=== PATIENT | male | born 1950 | race Caucasian/White ===

== ENCOUNTER 2020-10-22 09:50 | Outpatient (CLI) | payer MEDICARE, OTHER, SELFPAY ==
[2020-10-22 11:30] VITALS: PULSE 90; O2SAT 95
[2020-10-22 11:35] VITALS: PULSE 115; O2SAT 87
[2020-10-22 11:36] VITALS: PULSE 95; O2SAT 92
[2020-10-22 11:45] VITALS: PULSE 90; O2SAT 96
--- NOTE | 2020-10-22 13:36 | HOMEO2EVAL ---
Evaluation was performed at [facility] Home Oxygen Evaluation RC: Home Oxygen (O2) Evaluation Start: 10/22/20 13:32 Freq: Status: Active Protocol: RPE Activity Type Activity Date Activity User E-Sign Co-Sign Detail Recorded Client Recorded Date Recorded By Document 10/22/20 11:30 EUGENIO [email or web address] 10/22/20 13:35 EUGENIO Document 10/22/20 11:35 EUGENIO [email or web address] 10/22/20 13:35 EUGENIO Document 10/22/20 11:35 EUGENIO [email or web address] 10/22/20 13:35 EUGENIO Document 10/22/20 11:36 EUGENIO [email or web address] 10/22/20 13:35 EUGENIO Document 10/22/20 11:45 EUGENIO [email or web address] 10/22/20 13:35 EUGENIO 10/22/20 10/22/20 10/22/20 11:30 11:35 11:35 Home O2 Evaluation Test Phase Resting Exercise Exercise Oxygen Delivery Room Air Room Air Nasal Cannula Oxygen Flow Rate (L/min) 1 Pulse Oximetry (90-100 %) 95 87 L 87 L Pulse Rate (60-100 beats/min) 90 115 H Ambulation Distance (feet) Home Oxygen Evaluation Comments Treatment Charges O2 Evaluation - Outpatient 10/22/20 10/22/20 11:36 11:45 Home O2 Evaluation Test Phase Exercise Resting Oxygen Delivery Nasal Cannula Room Air Oxygen Flow Rate (L/min) 2 Pulse Oximetry (90-100 %) 92 96 Pulse Rate (60-100 beats/min) 95 90 Ambulation Distance (feet) 800 Home Oxygen Evaluation Comments Pt requires 2 liters O2 with exertion/ activity Treatment Charges
--- NOTE | 2020-10-22 13:36 | PCRCNOTE ---
Home O2 eval faxed to [facility] office staff for new set up
--- NOTE | 2020-10-22 17:14 | WPDPFTINT ---
PFT Procedure Performed PFT Procedure Performed Spirometry with Pre/Post Bronchodilator Plethysmography (Lung Vol) Diffusing Cap (DLCO) Flow Vol Loop PFT Interpretation This is a pulmonary function test with pre and post-bronchodilator spirometry, plethysmography and diffusing capacity. The test was performed and results interpreted in accordance with the 2019 and 2005 ATS/ERS Task Force guidelines respectively using the Global Lung Function Initiative-2012 reference equations. Patient demonstrated good effort and cooperation. Reproducibility criteria were met. The quality of the pre bronchodilator spirometry maneuver was Grade A and post bronchodilator spirometry maneuver was Grade A. Findings: Spirometry: There is decreased maximal expiratory airflow at all lung volumes with a concave expiratory flow tracing. The contour the inspiratory flow tracing is normal. The pre bronchodilator FVC is 4.00 L, 142% predicted. The pre bronchodilator FEV1 is 1.68 L, 76% predicted. The FEV1: FVC ratio is 42%. The post bronchodilator FVC is 3.94 L, representing 1% decrease. The post bronchodilator FEV1 is 1.72 L, representing a 2% increase. Plethysmography: The total lung capacity is 5.80 L, 120% predicted. The functional residual capacity is 2.78 L, 115% predicted. The residual volume is 1.80 L, 97% predicted. Diffusion capacity: The absolute diffusion capacity is 10.5, 49% predicted. Diffusing capacity corrected for alveolar volume is 2.28, 50% predicted. Impression: There is a mild obstructive abnormality without significant improvement after inhaling a single dose of albuterol. The lung volumes are normal. The absolute diffusing capacity is moderately decreased and remains moderately decreased when corrected for alveolar volume. There are no prior studies for comparison
--- NOTE | 2020-10-23 09:24 | HOMEO2EVAL ---
Evaluation was performed at [facility]
== END 2020-10-22 09:51 | disposition home or self-care (01) ==
PROVIDERS: PCP Physician Assistant; Visit Provider Nurse Practitioner
DX: J44.9 Chronic obstructive pulmonary disease, unspecified (principal)
CPT/HCPCS: 94060; 94618; 94726; 94729

== ENCOUNTER 2025-03-27 01:45 | Day surgery (SDC) | payer MEDICARE, SELFPAY ==
--- OUTSIDE RECORDS SUMMARY | 2007-10-31 11:19 | XMS_ITS | Continuity of Care Document ---
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 Name Role Phone Ankush Canales Unavailable Unavailable Procedures Procedure Date Post-op Follow-up Visit Refraction Post-op Follow-up Visit Remove Cataract, Insert Lens Eye Exam & Treatment Echo Exam Of Eye Eye Exam Established Pt Advance Directives Directive Yes / No Effective Date File Name No Information Encounters Encounter Description Practice Location Reason(s) For Visit Diagnoses Date Provider Providers Copied on Encounter [facility], [address] [place] [address] [address], [place], [place], [id number], tel:[phone] [facility] No Information [address] , [address], [place], [place], [facility], . tel:[phone] [facility], [address] [place] [address] [address], [place], [place], [id number], tel:[phone] [facility] No Information [address], [place], [place], [facility], . tel:[phone] [facility], [address] [place] [address] [address], [place], [place], [id number], tel:[phone] [facility] No Information [address] , [address], [place], [address], [place]. tel:[phone] [facility], [address] [place] [address] [address], [place], [place], [id number], tel:[phone] [facility] No Information [address] [place] [address] [address] , [address], [place], [place], [facility], [place]. tel:[phone] Referring Provider: Ankush Bai, [address] [place], [place] [address], [place], [place], [facility]. tel:[phone] [facility], [address], [place], [place], [id number], tel:[phone] [facility] No Information [address] [place] [address] , [address], [place], [address], [place]. tel:[phone] Family History Family Member Type Diagnosis Age At Onset No Information Payers Payer name Insurance type Covered republican ID Authoriza tion(s) No Information Social History Type Description Quantity Date Captured Comments Sex Male Smoking Status No Information Chief Complaint And Reason For Visit No Information Reason For Referral Reason For Referral No Information History Of Present Illness Encounter Date Complaint History Of Prese nt Illness No Information Functional Status Date Functional Assessmen t No Information Instructions Date Instruction Additional Infor mation No Information Assessments Type Assessment Date No Information Patient Care Teams Name Effective Dates (start - stop) Status Members No Information
[2025-03-24 13:29] VITALS: BMI 34.0
--- OUTSIDE RECORDS SUMMARY | 2025-03-27 01:47 | XMS_ITS | Data Portability ---
Author Organization [facility] Address [address] [place] [address] Assessment No assessment recorded. Plan of Treatment Reminders Order Date Submit Date Provider Last Modified By Organization Details Last Modified Time Details Appointments None recorded . Lab HbA1c (hemoglo bin A1c), blood 2023 024 [email or web address] In-Office Order, Internal Use Only DO Not Attach Compendium DO Not Attach Compendium, Do Not Delete/merge, [id number] 12:37:13 Referral None recorded . Procedures None recorded . Surgeries None recorded . Imaging None recorded . Medication Orders Zithroma x Z-Son 250 mg tablet 2024 025 [facility] #[id number], [address], [place], [address], 5 11:44:58 fluticas one propiona te 50 mcg/actu ation nasal spray,villarreal spension 2024 025 [facility] #[id number], [address], [place], [address], 5 11:06:52 dextrome thorphan -guaifen esin 10 mg-100 mg/5 mL oral syrup 2024 025 [facility], [facility], [place], [address], 5 11:06:47 cefdinir 300 mg capsule 2024 025 [facility] #[id number], [address] , [place], [address], 5 01:06:41 guaifene sin ER 600 mg tablet, extended release 12 hr 2023 024 [facility], [address] [place] [address], [id number], 4 13:38:13 neomycin -polymyx in-hydro terrie 3.5 mg-10,00 0 unit/mL- 1 % ear drops,villarreal sp 2023 024 [facility], [address] [place] [address], [id number], 5 11:45:25 Zithroma x Z-Son 250 mg tablet 2023 024 [facility], [address] [place] [address], [id number], 5 11:44:52 cetirizi ne 10 mg tablet 2023 024 [facility], [address] [place] [address], [id number], 4 13:05:29 Cialis 20 mg tablet 2023 024 [facility], [address] [place] [address], [id number], 4 12:41:33 tadalafi l 20 mg tablet 2023 024 [facility], [address] [place] [address], [id number], 5 17:37:28 Patient TargetsNo targets recorded. Patient Instructions Encounter Date Encounter Id Patient Instructions Last Modified By Organization Details Last Modified Time 02/05/2024 [id number] sleep apnea: car e instructions [email or web address] Not available 02/05/2024 12:50:19 allergies: care instructions [email or web address] Not available 02/05/2024 12:50:19 transient ischem ic attack: care instructions [email or web address] Not available 02/05/2024 12:50:19 learning about t ype 2 diabetes [email or web address] Not available 02/05/2024 12:37:11 type 2 diabetes: care instructions [email or web address] Not available 02/05/2024 12:37:11 05/09/2024 [id number] A healthy lifest yle: care instructions [email or web address] Not available 05/09/2024 13:16:37 Acute Sinusitis: Care Instructions [email or web address] Not available 05/09/2024 13:16:37 07/10/2024 [id number] allergies: care instructions [email or web address] Not available 07/10/2024 11:06:35 cough: care instructions [email or web address] Not available 07/10/2024 11:06:35 chronic sinusiti s: care instructions [email or web address] Not available 07/10/2024 11:06:35 07/24/2024 [id number] learning about fever Not avai lable 07/24/2024 16:17:38 upper respirator y infection (cold): care instructions [email or web address] Not available 07/24/2024 16:17:38 10/07/2024 [id number] medicines to ramona id with kidney disease: care instructions [email or web address] Not available 10/07/2024 12:42:04 back care and preventing injuries: care instructions [email or web address] Not available 10/07/2024 12:42:04 gastroesophageal reflux disease (GERD): care instructions [email or web address] Not available 10/07/2024 12:42:04 chronic obstruct chirag pulmonary disease (COPD): care instructions [email or web address] Not available 10/07/2024 12:42:04 learning about c opd and how to prevent lung infections [email or web address] Not available 10/07/2024 12:42:04 Reason for Referral None Reported. Results Created Date Observation Date Name Description Value Unit Range Abnormal Flag Note LastModifiedBy Organization Detail LastModifiedTime 02/05/20 24 02/05/2024 HbA1c (hemo globi n A1c), blood HbA1c 5.0 Not Available In-Office Order Internal Use Only DO Not Attach Compendium DO Not Attach Compendium, Do Not Delete/merge, [id number] 02/05/2024 12:37:01 07/30/1907/29/2024 Hemog lobin A1c/H emogl obin. total in Blood hemoglobin A1C/hemoglob in.total in blood 5.6 % low: 4%high : 6% normal Not Available Not Available 08/06/2024 03:13:51 07/30/19 25 07/29/2024 Micro album in/Cr eatin ine [Rati o] in Urine creatinine [mass/volume ] in urine 129.4 mg/dL normal Not Available Not Available 0 08/06/2024 03:13:52 07/30/19 25 07/29/2024 Micro album in/Cr eatin ine [Rati o] in Urine microalbumin [mass/volume ] in urine >1140. 0 low: 0mg/Lh igh: 16.6mg /L high Not Available Not Available 08/06/2024 03:13:52 07/30/19 25 07/29/2024 Micro album in/Cr eatin ine [Rati o] in Urine microalbumin /creatinine [ratio] in urine 0 mcg/m g low: 0mcg/m ghigh: 29mcg/ mg normal Not Available Not Available 08/06/2024 03:13:52 07/30/19 25 07/29/2024 Prote in/Cr eatin ine [Rati o] in Urine creatinine [mass/volume ] in urine 125.9 mg/dL normal Not Available Not Available 0 08/06/2024 03:13:52 07/30/19 25 07/29/2024 Prote in/Cr eatin ine [Rati o] in Urine protein [mass/volume ] in urine 246 mg/dL low: 0mg/dL high: 11.9mg /dL high Not Available Not Available 08/06/2024 03:13:52 07/30/19 25 07/29/2024 Prote in/Cr eatin ine [Rati o] in Urine protein/crea tinine [ratio] in urine 2 1 low: 0high: 0.2 high Not Available Not Available 08/06/2024 03:13:52 07/30/19 25 07/29/[address] [Mass /volu me] in Serum or Plasm a parathyrin.i ntact [mass/volume ] in serum or plasma 65.9 pg/mL low: 24pg/m Lhigh: 78pg/m L normal Not Available Not Available 08/06/2024 03:13:52 07/30/19 25 07/29/2024 25-hy droxy vitam in D3 [Mass /volu me] in Serum or Plasm a 25-hydroxyvi tamin D3 [mass/volume ] in serum or plasma 55.9 NG/mL low: 30NG/m Lhigh: 100NG/ mL normal Not Available Not Available 08/06/2024 03:13:52 07/30/19 25 07/29/2024 Magne sium [Mass /volu me] in Serum or Plasm a magnesium [mass/volume ] in serum or plasma 1.7 mg/dL low: 1.6mg/ dLhigh : 2.3mg/ dL normal Not Available Not Available 08/06/2024 03:13:52 07/30/19 25 07/29/2024 Compr ehens chirag metab olic 1999 panel - Serum or Plasm a sodium [moles/volum e] in blood 139 mmol/ L low: 137mmo l/Lhig h: 145mmo l/L normal Not Available Not Available 08/06/2024 03:13:52 07/30/19 25 07/29/2024 Compr ehens chirag metab olic 1999 panel - Serum or Plasm a potassium [moles/volum e] in serum or plasma 4 mmol/ L low: 3.5mmo l/Lhig h: 5.1mmo l/L normal Not Available Not Available 08/06/2024 03:13:52 07/30/19 25 07/29/2024 Compr ehens chirag metab olic 2000 panel - Serum or Plasm a chloride [moles/volum e] in serum or plasma 110 mmol/ L low: 98mmol /Lhigh : 107mmo l/L high Not Available Not Available 08/06/2024 03:13:52 07/30/19 25 07/29/2024 Compr ehens chirag metab olic 1999 panel - Serum or Plasm a carbon dioxide, total [moles/volum e] in serum or plasma 26 mmol/ L low: 22mmol /Lhigh : 30mmol /L normal Not Available Not Available 08/06/2024 03:13:52 07/30/19 25 07/29/2024 [facility] [email or web address] chirag [employer] [facility] 1999 panel - Serum or Plasm a anion gap in serum or plasma 7 mmol/ L low: 14mmol /Lhigh : 22mmol /L low Not Available Not Available 08/06/2024 03:13:52 07/30/19 25 07/29/2024 [facility] 1999 panel - Serum or Plasm a glucose [mass/volume ] in serum or plasma 117 mg/dL low: 70mg/d Lhigh: 99mg/d L high Not Available Not Available 08/06/2024 03:13:52 07/30/19 25 07/29/2024 [facility] [email or web address] chirag [employer] [facility] 1999 panel - Serum or Plasm a urea nitrogen [mass or moles/volume ] in serum or plasma 19 mg/dL low: 8mg/dL high: 19mg/d L normal Not Available Not Available 08/06/2024 03:13:52 07/30/19 25 07/29/2024 [facility] [employer] chirag [employer] [facility] 1999 panel - Serum or Plasm a creatinine [mass/volume ] in serum or plasma 1.79 mg/dL low: 0.66mg /dLhig h: 1.25mg /dL high Not Available Not Available 08/06/2024 03:13:52 07/30/19 25 07/29/2024 [facility] [email or web address] chirag [employer] [facility] 1999 panel - Serum or Plasm a glomerular filtration rate/1.73 sq M.predicted [volume rate/area] in serum, plasma or blood 37 1 normal Not Available Not Available 07/27 03:13:52 07/30/19 25 07/29/2024 [facility] [email or web address] chirag [employer] ic 1999 panel - Serum or Plasm a alkaline phosphatase [enzymatic activity/vol ume] in serum or plasma 77 U/L low: 38U/Lh igh: 126U/L normal Not Available Not Available 08/06/2024 03:13:52 07/30/19 25 07/29/2024 [facility] [email or web address] chirag [employer] ic 1999 panel - Serum or Plasm a alanine aminotransfe rase [enzymatic activity/vol ume] in serum or plasma 16 U/L low: 0U/Lhi gh: 50U/L normal Not Available Not Available 08/06/2024 03:13:52 07/30/19 25 07/29/2024 [facility] [employer] chirag [employer] [facility] 1999 panel - Serum or Plasm a aspartate aminotransfe rase [enzymatic activity/vol ume] in serum or plasma 22 U/L low: 15U/Lh igh: 46U/L normal Not Available Not Available 08/06/2024 03:13:52 07/30/19 25 07/29/2024 Compr [employer] chirag [employer] [facility] 1999 panel - Serum or Plasm a bilirubin.to safia [mass/volume ] in serum or plasma 0.9 mg/dL low: 0.2mg/ dLhigh : 1.3mg/ dL normal Not Available Not Available 08/06/2024 03:13:52 07/30/19 25 07/29/2024 [facility] [employer] chirag [employer] [facility] 1999 panel - Serum or Plasm a calcium [mass/volume ] in serum or plasma 9.4 mg/dL low: 8.4mg/ dLhigh : 10.2mg /dL normal Not Available Not Available 08/06/2024 03:13:52 07/30/19 25 07/29/2024 [facility] [employer] [facility] 1999 panel - Serum or Plasm a protein [mass/volume ] in serum or plasma 6.8 g/dL low: 6.3g/d Lhigh: 8.2g/d L normal Not Available Not Available 08/06/2024 03:13:52 07/30/19 25 07/29/2024 Compr [employer] chirag [employer] [facility] 1999 panel - Serum or Plasm a albumin [mass/volume ] in serum or plasma 4 g/dL low: 3g/dLh igh: 4.4g/d L normal Not Available Not Available 08/06/2024 03:13:52 07/30/19 25 07/29/2024 Compr [email or web address] chirag [employer] [facility] 2000 panel - Serum or Plasm a globulin [mass/volume ] in serum 2.8 g/dL low: 2.6g/d Lhigh: 4.2g/d L normal Not Available Not Available 08/06/2024 03:13:52 07/30/19 25 07/29/2024 Compr ehens chirag metab olic 1999 panel - Serum or Plasm a albumin/glob ulin [mass ratio] in serum or plasma 1.4 ratio low: 1ratio high: 2ratio normal Not Available Not Available 08/06/2024 03:13:52 07/31/19 25 07/30/2024 Cysta tin C [Mass /volu me] in Serum or Plasm a cystatin C [mass/volume ] in serum or plasma 1.95 mg/L text: 0.78-1 .15 high Not Available Not Available 08/06/2024 03:13:51 08/13/19 25 08/13/2024 URIC ACID uric acid 9.3 mg/dL 3.8-8. 4 above high normal Thera peuti c targe t for gout patie nts: <6.0 Not Available [facility] ([facility]) [address] [place], [address], 08/13/2024 09:17:21 08/13/19 25 08/13/2024 SEDIM ENTAT ION RATE- WESTE RGREN sedimentatio n rate-westerg laquita 30 mm/HR 0-30 Not Available [facility] ([facility]) [address] [place], [address], 08/13/2024 09:17:22 11/05/19 25 11/04/2024 Micro album in/Cr eatin ine [Rati o] in Urine creatinine [mass/volume ] in urine 132.4 mg/dL normal Not Available Not Available 0 11/11/2024 05:55:58 11/05/19 25 11/04/2024 Micro album in/Cr eatin ine [Rati o] in Urine microalbumin [mass/volume ] in urine 711.9 mg/L low: 0mg/Lh igh: 16.6mg /L high Not Available Not Available 11/11/2024 05:55:58 11/05/19 25 11/04/2024 Micro album in/Cr eatin ine [Rati o] in Urine microalbumin /creatinine [ratio] in urine 538 mcg/m g low: 0mcg/m ghigh: 29mcg/ mg high Not Available Not Available 11/11/2024 05:55:58 11/05/19 25 11/04/2024 Cobal stevenson (Bettie min B12) [Mass /volu me] in Serum or Plasm a cobalamin (vitamin B12) [mass/volume ] in serum or plasma >1000 low: 239pg/ mLhigh : 931pg/ mL high Not Available Not Available 11/11/2024 05:55:58 11/05/19 25 11/04/2024 Folat e [Mass /volu me] in Serum or Plasm a folate [mass/volume ] in serum or plasma >20.0 low: 2.76NG /mLhig h: 20NG/m L normal Not Available Not Available 11/11/2024 05:55:58 11/05/19 25 11/04/2024 25-hy droxy vitam in D3 [Mass /volu me] in Serum or Plasm a 25-hydroxyvi tamin D3 [mass/volume ] in serum or plasma 52.4 NG/mL low: 30NG/m Lhigh: 100NG/ mL normal Not Available Not Available 11/04/2024 22:05:03 11/05/19 25 11/04/2024 Thyro tropi n [Unit s/vol ume] in Serum or Plasm a by Detec tion limit <= 0.005 mIU/L thyrotropin [units/volum e] in serum or plasma by detection limit <= 0.005 mIU/L 3.89 uIU/m L low: 0.465u IU/mLh igh: 4.68uI U/mL normal Not Available Not Available 11/04/2024 22:05:04 11/05/19 25 11/04/2024 Ida tin [Mass /volu me] in Serum or Plasm a ferritin [mass/volume ] in serum or plasma 11 NG/mL low: 17.9NG /mLhig h: 464NG/ mL low Not Available Not Available 11/04/2024 22:05:04 11/05/19 25 11/04/2024 Prote in/Cr eatin ine [Rati o] in Urine creatinine [mass/volume ] in urine 131.9 mg/dL normal Not Available Not Available 0 11/04/2024 22:05:03 11/05/19 25 11/04/2024 Prote in/Cr eatin ine [Rati o] in Urine protein [mass/volume ] in urine 147 mg/dL low: 0mg/dL high: 11.9mg /dL high Not Available Not Available 11/04/2024 22:05:03 11/05/19 25 11/04/2024 Prote in/Cr eatin ine [Rati o] in Urine protein/crea tinine [ratio] in urine 1.1 1 low: 0high: 0.2 high Not Available Not Available 11/04/2024 22:05:03 11/05/19 25 11/04/2024 CBC W Auto Diffe renti al panel - Blood leukocytes [#/volume] in blood by automated count 8.3 x10'3 /uL low: 4.2x10 '3/uLh igh: 10.8x1 0'3/uL normal Not Available Not Available 11/04/2024 22:05:03 11/05/19 25 11/04/2024 CBC W Auto Diffe renti al panel - Blood erythrocytes [#/volume] in blood by automated count 3.65 x10'6 /uL low: 4.1x10 '6/uLh igh: 5.8x10 '6/uL low Not Available Not Available 11/04/2024 22:05:03 11/05/19 25 11/04/2024 CBC W Auto Diffe renti al panel - Blood hemoglobin [mass/volume ] in blood 11 g/dL low: 13.2g/ dLhigh : 17g/dL low Not Available Not Available 11/04/2024 22:05:03 11/05/19 25 11/04/2024 CBC W Auto Diffe renti al panel - Blood hematocrit [volume fraction] of blood by automated count 34 % low: 39.3%h igh: 50% low Not Available Not Available 11/04/2024 22:05:03 11/05/19 25 11/04/2024 CBC W Auto Diffe renti al panel - Blood MCV [entitic mean volume] in red blood cells by automated count 93.2 fL low: 80fLhi gh: 97fL normal Not Available Not Available 11/04/2024 22:05:03 11/05/19 25 11/04/2024 CBC W Auto Diffe renti al panel - Blood MCH [entitic mass] by automated count 30.1 pg low: 27pghi gh: 33pg normal Not Available Not Available 11/04/2024 22:05:03 11/05/19 25 11/04/2024 CBC W Auto Diffe renti al panel - Blood MCHC [entitic mass/volume] in red blood cells by automated count 32.4 g/dL low: 31g/dL high: 36g/dL normal Not Available Not Available 11/04/2024 22:05:03 11/05/19 25 11/04/2024 CBC W Auto Diffe renti al panel - Blood erythrocyte [distwidth] in red blood cells 15.3 % low: 11.8%h igh: 15.5% normal Not Available Not Available 11/04/2024 22:05:03 11/05/19 25 11/04/2024 CBC W Auto Diffe renti al panel - Blood platelets [#/volume] in blood by automated count 133 x10'3 /uL low: 150x10 '3/uLh igh: 400x10 '3/uL low Not Available Not Available 11/04/2024 22:05:03 11/05/19 25 11/04/2024 CBC W Auto Diffe renti al panel - Blood platelet [entitic mean volume] in blood by automated count 9.7 fL low: 9fLhig h: 12.4fL normal Not Available Not Available 11/04/2024 22:05:03 11/05/19 25 11/04/2024 CBC W Auto Diffe renti al panel - Blood neutrophils/ leukocytes in blood 69.1 % low: 39%hig h: 72% normal Not Available Not Available 11/04/2024 22:05:03 11/05/19 25 11/04/2024 CBC W Auto Diffe renti al panel - Blood lymphocytes/ leukocytes in blood 16.9 % low: 16%hig h: 47% normal Not Available Not Available 11/04/2024 22:05:03 11/05/19 25 11/04/2024 CBC W Auto Diffe renti al panel - Blood monocytes/le ukocytes in blood 9 % low: 5%high : 12% normal Not Available Not Available 11/04/2024 22:05:03 11/05/19 25 11/04/2024 CBC W Auto Diffe renti al panel - Blood eosinophils [#/volume] in blood 4 % low: 1%high : 7% normal Not Available Not Available 11/04/2024 22:05:03 11/05/19 25 11/04/2024 CBC W Auto Diffe renti al panel - Blood basophils/le ukocytes in blood 0.6 % low: 0%high : 2% normal Not Available Not Available 11/04/2024 22:05:03 11/05/19 25 11/04/2024 CBC W Auto Diffe renti al panel - Blood immature granulocytes /leukocytes in blood 0.4 % low: 0%high : 0.5% normal Not Available Not Available 11/04/2024 22:05:03 11/05/19 25 11/04/2024 CBC W Auto Diffe renti al panel - Blood neutrophils [#/volume] in blood 5.75 x10'3 /uL low: 1.5x10 '3/uLh igh: 8x10'3 /uL normal Not Available Not Available 11/04/2024 22:05:03 11/05/19 25 11/04/2024 CBC W Auto Diffe renti al panel - Blood lymphocytes [#/volume] in blood 1.41 x10'3 /uL low: 1.07x1 0'3/uL high: 3.43x1 0'3/uL normal Not Available Not Available 11/04/2024 22:05:03 11/05/19 25 11/04/2024 CBC W Auto Diffe renti al panel - Blood monocytes [#/volume] in blood 0.75 x10'3 /uL low: 0.29x1 0'3/uL high: 0.99x1 0'3/uL normal Not Available Not Available 11/04/2024 22:05:03 11/05/19 25 11/04/2024 CBC W Auto Diffe renti al panel - Blood eosinophils [#/volume] in blood 0.33 x10'3 /uL low: 0.02x1 0'3/uL high: 0.53x1 0'3/uL normal Not Available Not Available 11/04/2024 22:05:03 11/05/19 25 11/04/2024 CBC W Auto Diffe renti al panel - Blood basophils [#/volume] in blood 0.05 x10'3 /uL low: 0.01x1 0'3/uL high: 0.08x1 0'3/uL normal Not Available Not Available 11/04/2024 22:05:03 11/05/19 25 11/04/2024 CBC W Auto Diffe renti al panel - Blood immature granulocytes [#/volume] in blood 0.03 x10'3 /uL low: 0x10'3 /uLhig h: 0.05x1 0'3/uL normal Not Available Not Available 11/04/2024 22:05:03 11/05/19 25 11/04/2024 CBC W Auto Diffe renti al panel - Blood nucleated erythrocytes /leukocytes [ratio] in blood 0 % high: 0% normal Not Available Not Available 11/04/2024 22:05:03 11/05/19 25 11/04/2024 CBC W Auto Diffe renti al panel - Blood nucleated erythrocytes [#/volume] in blood by automated count 0 x10'3 /uL normal Not Available Not Available 11/05/19 22:05:03 11/05/19 25 11/04/2024 Renal funct ion 1999 panel - Serum or Plasm a sodium [moles/volum e] in blood 140 mmol/ L low: 137mmo l/Lhig h: 145mmo l/L normal Not Available Not Available 11/04/2024 22:05:03 11/05/19 25 11/04/2024 Renal funct ion 1999 panel - Serum or Plasm a potassium [moles/volum e] in serum or plasma 4.2 mmol/ L low: 3.5mmo l/Lhig h: 5.1mmo l/L normal Not Available Not Available 11/04/2024 22:05:03 11/05/19 25 11/04/2024 Renal funct ion 1999 panel - Serum or Plasm a chloride [moles/volum e] in serum or plasma 105 mmol/ L low: 98mmol /Lhigh : 107mmo l/L normal Not Available Not Available 11/04/2024 22:05:03 11/05/19 25 11/04/2024 Renal funct ion 1999 panel - Serum or Plasm a carbon dioxide, total [moles/volum e] in serum or plasma 24 mmol/ L low: 22mmol /Lhigh : 30mmol /L normal Not Available Not Available 11/04/2024 22:05:03 11/05/19 25 11/04/2024 Renal funct ion 1999 panel - Serum or Plasm a anion gap in serum or plasma by calculation 15.2 mmol/ L low: 14mmol /Lhigh : 22mmol /L normal Not Available Not Available 11/04/2024 22:05:03 11/05/19 25 11/04/2024 Renal funct ion 1999 panel - Serum or Plasm a glucose [mass/volume ] in serum or plasma 113 mg/dL low: 70mg/d Lhigh: 99mg/d L high Not Available Not Available 11/04/2024 22:05:03 11/05/19 25 11/04/2024 Renal funct ion 1999 panel - Serum or Plasm a urea nitrogen [mass or moles/volume ] in serum or plasma 29 mg/dL low: 8mg/dL high: 19mg/d L high Not Available Not Available 11/04/2024 22:05:03 11/05/19 25 11/04/2024 Renal funct ion 1999 panel - Serum or Plasm a creatinine [mass/volume ] in serum or plasma 2.35 mg/dL low: 0.66mg /dLhig h: 1.25mg /dL high Not Available Not Available 11/04/2024 22:05:03 11/05/19 25 11/04/2024 Renal funct ion 1999 panel - Serum or Plasm a glomerular filtration rate [volume rate/area] in serum, plasma or blood by based on 1.73 sq M 27 1 normal Not Available Not Available 22:05:03 11/05/19 25 11/04/2024 Renal funct ion 1999 panel - Serum or Plasm a calcium [mass/volume ] in serum or plasma 9.1 mg/dL low: 8.4mg/ dLhigh : 10.2mg /dL normal Not Available Not Available 11/04/2024 22:05:03 11/05/19 25 11/04/2024 Renal funct ion 1999 panel - Serum or Plasm a phosphate [mass/volume ] in serum or plasma 3.2 mg/dL low: 2.5mg/ dLhigh : 4.5mg/ dL normal Not Available Not Available 11/04/2024 22:05:03 11/05/19 25 11/04/2024 Renal funct ion 2000 panel - Serum or Plasm a albumin [mass/volume ] in serum or plasma 4.2 g/dL low: 3g/dLh igh: 4.4g/d L normal Not Available Not Available 11/04/2024 22:05:03 11/05/19 25 11/04/2024 Magne sium [Mass /volu me] in Serum or Plasm a magnesium [mass/volume ] in serum or plasma 2.1 mg/dL low: 1.6mg/ dLhigh : 2.3mg/ dL normal Not Available Not Available 11/04/2024 22:05:03 11/05/19 25 11/04/2024 Iron and Iron greg ng capac ity panel - Serum or Plasm a iron binding capacity [mass/volume ] in serum or plasma 321 mcg/d L low: 265mcg /dLhig h: 475mcg /dL normal Not Available Not Available 11/04/2024 22:05:04 11/05/19 25 11/04/2024 Iron and Iron greg ng capac ity panel - Serum or Plasm a iron saturation [mass fraction] in serum or plasma 22 % low: 20%hig h: 55% normal Not Available Not Available 11/04/2024 22:05:04 11/05/19 25 11/04/2024 Iron and Iron greg ng capac ity panel - Serum or Plasm a iron binding capacity.uns aturated [mass/volume ] in serum or plasma 249 mcg/d L low: 126mcg /dLhig h: 382mcg /dL normal Not Available Not Available 11/04/2024 22:05:04 11/05/19 25 11/04/2024 Iron and Iron greg ng capac ity panel - Serum or Plasm a iron [mass/volume ] in serum or plasma 72 mcg/d L low: 42mcg/ dLhigh : 175mcg /dL normal Not Available Not Available 11/04/2024 22:05:04 11/05/19 25 11/04/2024 Urina lysis panel - Urine by Autom ated color of urine by auto Color of urine normal Not Available Not Available 22:05:04 06/09/20 25 11/04/2024 Urina lysis panel - Urine by Autom ated appearance of urine Urine specim en normal Not Available Not Available 22:05:04 11/05/19 25 11/04/2024 Urina lysis panel - Urine by Autom ated specific gravity of urine by test strip 1.016 1 low: 1.001h igh: 1.03 normal Not Available Not Available 11/04/2024 22:05:04 11/05/19 25 11/04/2024 Urina lysis panel - Urine by Autom ated pH of urine by test strip 5.5 pH_un its low: 5pH unitsh igh: 9pH units normal Not Available Not Available 11/04/2024 22:05:04 11/05/1911/04/2024 Urina lysis panel - Urine by Autom ated leukocytes [#/volume] in urine by test strip Leukoc yte estera se measur ement text: negati ve normal Not Available Not Available 11/04/2024 22:05:04 11/05/19 25 11/04/2024 Urina lysis panel - Urine by Autom ated nitrite [presence] in urine by test strip Labora tory test findin g text: negati ve normal Not Available Not Available 11/04/2024 22:05:04 11/05/19 25 11/04/2024 Urina lysis panel - Urine by Autom ated protein [mass/volume ] in urine by test strip 70 mg/dL text: negati ve Not Available Not Available 11/04/2024 22:05:04 11/05/19 25 11/04/2024 Urina lysis panel - Urine by Autom ated glucose [moles/volum e] in urine by test strip Labora tory test findin g text: normal normal Not Available Not Available 11/04/2024 22:05:04 11/05/19 25 11/04/2024 Urina lysis panel - Urine by Autom ated ketones [moles/volum e] in urine by test strip Labora tory test findin g text: negati ve normal Not Available Not Available 11/04/2024 22:05:04 11/05/19 25 11/04/2024 Urina lysis panel - Urine by Autom ated urobilinogen [mass/volume ] in urine by test strip Urobil inogen measur ement, urine text: normal normal Not Available Not Available 11/04/2024 22:05:04 11/05/1911/04/2024 Urina lysis panel - Urine by Autom ated bilirubin.to safia [mass/volume ] in urine by test strip Urine dipsti ck for biliru bin text: negati ve normal Not Available Not Available 11/04/2024 22:05:04 11/05/19 25 11/04/2024 Urina lysis panel - Urine by Autom ated erythrocytes [#/volume] in urine by test strip Urine dipsti ck for blood text: negati ve normal Not Available Not Available 11/04/2024 22:05:04 11/05/19 25 11/04/2024 Urina lysis panel - Urine by Autom ated leukocytes [#/area] in urine sediment by automated count Leukoc ytes in urine low: 0/[hpf ]high: 8/[hpf ] normal Not Available Not Available 11/04/2024 22:05:04 11/05/19 25 11/04/2024 Urina lysis panel - Urine by Autom ated erythrocytes [#/area] in urine sediment by automated count Blood in urine low: 0/[hpf ]high: 4/[hpf ] normal Not Available Not Available 11/04/2024 22:05:04 11/05/19 25 11/04/2024 Urina lysis panel - Urine by Autom ated bacteria [presence] in urine by automated Urine findin g text: none seen normal Not Available Not Available 11/04/2024 22:05:04 11/05/19 25 11/04/2024 Urina lysis panel - Urine by Autom ated mucus [#/area] in urine sediment by automated count Urine findin g text: none seen Not Available Not Available 11/04/2024 22:05:04 11/05/19 25 11/04/2024 Urina lysis panel - Urine by Autom ated epithelial cells.[place] us [#/area] in urine sediment by automated count Urine findin g Not Available Not Available 22:05:04 11/05/19 25 11/04/2024 Urina lysis panel - Urine by Autom ated hyaline casts [#/area] in urine sediment by automated count Urine findin g text: none seen Not Available Not Available 11/04/2024 22:05:04 11/06/1911/05/2024 Cysta tin C [Mass /volu me] in Serum or Plasm a cystatin C [mass/volume ] in serum or plasma 2.25 mg/L text: 0.78-1 .15 high Not Available Not Available 11/11/2024 05:55:58 11/13/19 25 11/12/2024 Eryth rocyt e sedim entat ion rate [[place]] in Red Blood Cells erythrocyte sedimentatio n rate [velocity] in red blood cells 58 mm/HR low: 0mm/HR high: 20mm/H R high Not Available Not Available 11/19/2024 09:01:43 11/13/19 25 11/12/2024 C react chirag prote in [Mass /volu me] in Serum or Plasm a C reactive protein [mass/volume ] in serum or plasma 0.31 mg/dL low: 0mg/dL high: 0.5mg/ dL normal Not Available Not Available 11/19/2024 09:01:43 11/13/19 25 11/12/2024 Compl ement C4 [Pres ence] in Serum or Plasm a complement C4 [presence] in serum or plasma 36.3 mg/dL low: 14mg/d Lhigh: 44mg/d L normal Not Available Not Available 11/19/2024 09:01:43 11/13/19 25 11/12/2024 Compl ement C3 [Mass /volu me] in Serum or Plasm a complement C3 [mass/volume ] in serum or plasma 139 mg/dL low: 88mg/d Lhigh: 165mg/ dL normal Not Available Not Available 11/19/2024 09:01:43 08/02/19 25 08/01/2024 XR, ankle , 3 or more view No observ ation record ed. [facility] [address] [place], [address], 08/06/2024 11:17:38 Result Notes None recorded. 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 pain syndrome 3767535 Active Not Available [facility] 4 22:45:26 Coronary arterios clerosis 21623884 Active Not Available [facility] 4 22:45:26 Hyperten sive disorder 67086207 Active Not Available [facility] 4 22:45:25 Hyperlip idemia 90794595 Active Not Available [facility] 4 22:45:26 Gastroes ophageal reflux disease 153831757 Active Not Available [facility] 4 22:45:24 Low back pain 635689705 Active Not Available [facility] 4 22:45:25 Ankle pain 178023794 Active Not Available [facility] 4 22:45:25 Basal cell carcinom a of nose 808134301 Active Not Available [facility] 4 22:45:25 Osteoart hritis of knee 820855616 Active Not Available [facility] 4 22:45:25 Transien t cerebral ischemia 659020976 Active Not Available [facility] 4 22:45:25 Upper respirat ory infectio n 42144615 Active Not Available [facility] 4 22:45:26 Cellulit is of lower limb 413101532 Active Not Available [facility] 4 22:45:25 Dyspnea 203133876 Active 2015 Not Available [facility] 4 22:45:25 Dysphagi a 76081363 Active 2015 Not Available [facility] 4 22:45:25 Impotenc e Active 2015 Not Available [facility] 4 22:45:25 Chronic obstruct chirag pulmonar y disease 25976404 Active 2015 mild ; see PFTs 1 Not Available [facility] 4 22:45:24 Migraine 80589801 Active 2016 Not Available [facility] 4 22:45:25 Sinusiti s 02716592 Active 2016 Not Available [facility] 4 22:45:25 Acute otitis media 3525445 Active 2016 Not Available [facility] 4 22:45:25 Screenin g for malignan t neoplasm of prostate Active 2016 Not Available [facility] 4 22:45:25 Administ ration of viral vaccine Active 2016 Not Available [facility] 4 22:45:25 Tendinit is of wrist 467339816 Active 2016 Not Available [facility] 4 22:45:25 Numbness of finger 733121503 Active 2016 Not Available [facility] 4 22:45:25 Tendinit is of elbow or forearm 97594320791 6 Active 2016 Not Available [facility] 4 22:45:25 Basal cell carcinom a of skin 014051060 Active 2016 Not Available [facility] 4 22:45:25 Pain in upper limb 320971539 Active 2016 Not Available [facility] 4 22:45:24 Pain in left arm 292950924 Active 2016 Not Available [facility] 4 22:45:25 Carpal tunnel syndrome 68251245 Active 2016 Not Available [facility] 4 22:45:26 Administ ration of influenz a vaccine Active 2016 Not Available [facility] 4 22:45:26 Strain of muscle of left shoulder 23517917665 036407 Active 2017 Not Available [facility] 4 22:45:24 Screenin g for malignan t neoplasm of colon Active 2017 Not Available [facility] 4 22:45:25 Allergic rhinitis 60258732 Active 2017 Not Available [facility] 4 22:45:26 Serum creatini ne outside referenc e range 437722294 Active 2017 Not Available [facility] 4 22:45:24 Chronic kidney disease stage 3 300852938 Active 2017 Not Available [facility] 4 22:45:25 Follicul itis 43265601 Active 2017 Not Available [facility] 4 22:45:24 Infectio n of fingerna il of left hand 64679045429 890872 Completed 201711/14/2017 Ankush Nuñez PA-C Attn: Accounting ,[address], [place], [address] , [place] - [facility] 8 23:19:32 Lacerati on of finger 110163756 Active 2017 Not Available [facility] 4 22:45:25 Removal of suture Active 2017 Not Available [facility] 4 22:45:25 Localize d eruption of skin 077497599 Active 2017 Not Available [facility] 4 22:45:26 Obese 391645148 Active 2018 Not Available [facility] 4 22:45:25 Acute sinusiti s 01469356 Active 2018 Not Available [facility] 4 22:45:24 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 Not Available [facility] 4 22:45:24 Lumbosac ral radiculo felix 9325388 Active 2019 Not Available [facility] 4 22:45:25 Vasomoto r rhinitis 8926634 Active 2019 Not Available [facility] 4 22:45:26 Sleep apnea 89305600 Active 2019 moderate ly severe , see sleep study 04/15/20 20 Not Available [facility] 4 22:45:26 Insomnia 485447420 Active 2020 Not Available [facility] 4 22:45:24 Lung cancer screenin g Active 2020 Not Available [facility] 4 22:45:26 Vitamin D below referenc e range 055616676 Active 2020 Not Available [facility] 4 22:45:24 Administ ration of pneumoco ccal vaccine Active 2020 Not Available [facility] 4 22:45:24 Erectile dysfunct ion 953290305 Active 2020 Not Available [facility] 4 22:45:26 Cough 12549607 Active 2021 Not Available [facility] 4 22:45:25 Acute conjunct ivitis 16945235 Active 2021 Not Available [facility] 4 22:45:26 Acute pain of scrotum 802263714 Active 2021 Not Available [facility] 4 22:45:26 Right inguinal hernia 105929507 Active 2021 Not Available [facility] 4 22:45:25 Cyst of epididym is 59121306 Active 2021 Not Available [facility] 4 22:45:25 Tinea capitis 0664919 Active 2021 Not Available [facility] 4 22:45:26 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 46537112728 9106 Active 2021 Not Available [facility] 4 22:45:24 Hernia of anterior abdomina l wall 325281147 Active 2021 right lower quadrant Not Available [facility] 4 22:45:25 Serum vitamin B12 borderli ne low 685199852 Active 2021 Not Available [facility] 4 22:45:25 Pain in scrotum Active 2021 Right Not Available [facility] 4 22:45:24 Type 2 diabetes mellitus 09476233 Active 2021 Not Available [facility] 4 22:45:25 History of polyp of colon 087611544 Active 2022 Not Available [facility] 4 22:45:25 Divertic ular disease 313029415 Active 2022 Not Available [facility] 4 22:45:25 Disorder of tympanic membrane 20926574 Active 2023 Not Available [facility] 4 22:45:24 Disorder of skin 32811451 Active 2023 Not Available [facility] 4 22:45:26 Congesti on of nasal sinus 68903495 Active 2023 Bonnie Beltran MD Attn: Accounting ,[address] [place], [address] , [facility] 4 11:31:15 Fever 191252033 Active 2024 Bonnie Beltran MD Attn: Accounting ,[address] [place], [address] , [facility] 5 16:14:20 Pain of right ankle joint 53062873577 204504 Active 2024 Bonnie Beltran MD Attn: Accounting ,[address] [place], [address] , [facility] 5 16:16:15 Notes:rheumatic fever as a c hild . Had a mesh put in to left scrotum age 8 Some problems listed in Documents: #[id number], #[id number], #[id number], #[id number] could not be added to this patient's chart. Please review these documents and add these problems to the patient's chart manually as needed. Problem Notes None recorded. Procedures Surgical History Date Name Laterality Status Provider Name and Address Organization Details Recorded Time Eye Surgery completed Linda Patel MA [facility] 07/04/2014 16:24:18 Heart Surgery completed Linda Patel MA [facility] 07/04/2014 16:24:18 Hernia Repair completed Linda Patel MA [facility] 07/04/2014 16:24:18 Knee Surgery completed Linda Patel [place] [facility] 07/04/2014 16:24:18 Imaging Results None recorded. Procedure Notes None recorded. Medical Equipment None Reported. Allergies Allergen ID Allergen Name Allergen Category Reaction Reaction Severity Criticality Documentation Date Start Date Code Code System Note Provider Name and Address Organization Details Recorded Time 793611 ketamine medicatio n Not available Not available Not available 06/28/2018 6130 RxNorm SHEILA Velazquez, [place] - [place] [facility] 10:26:11 991499 ciproflox acin medicatio n hives moderate Not available 07/24/2018 2551 RxNorm Ankush Nuñez PA-C Attn: Laura tirado,[address] [place], [address] [place] [address] - [place] 1 11:10:42 618371 Ambien medicatio n other severe Not available 02/22/2019 25602 5 RxNorm Angela Bowen MA null, [place] - [facility] 10:41:36 962485 Wellbutri n medicatio n hives Not available Not available 03/24/2025 81334 RxNorm Not Available [facility] - External Data Service - prod 12:47:26 300554 bupropion Not available Not available Not available [facility] 03/24/20252017 41548 RxNorm unrec ogniz ed react ion (text : Urtic aria, code: 15534 [id number]) (from exter nal sourc e) unrec ogniz ed react ion (text : Unkno wn, code: [id number] 5006) (from exter nal sourc e) Not Available [facility] - External Data Service - prod 12:51:17 [id number] lidocaine medicatio n Not available Not available Not available 03/24/20252020 6387 RxNorm unrec ogniz ed react ion (text : Unkno wn, code: 94033 5006) (from exter nal sourc e) Not Available [facility] [employer] - prod 12:51:17 [id number] zolpidem medicatio n Not available Not available [facility] 03/24/20252019 14691 RxNorm unrec ogniz ed react ion (text : Other , code: 09246 [id number]) [facility] Not Available [place] - External Data Service - prod 5 12:51:17 70416 Product containin g penicilli n (product) medicatio n hives Not available Not available 07/04/2014 41289 8001 SNOMED SHEILA Rodrigues, [place] - [facility] 16:24:18 72849 Wellbutri n medicatio n hives Not available Not available 07/04/2014 56051 RxNorm SHEILA Rodrigues, [facility] 5 16:24:18 Medications Name Sig Start Date Stop Date Status Note LastModified by Organization Details LastModified Time Prescript ion - Renewal 05/02 completed Not Available Not Available Not Available Prescript ion - Prior Authoriza tion Request 12/19 completed Not Available Not Available Not Available metformin 500 mg tablet TAKE 1 TABLET IN THE MORNING AND 1 TABLET IN THEEVENI NG. TAKE WITH MEALS active Not Available Not Available No t Available promethaz ine-DM 6.25 mg-15 mg/5 mL oral syrup TAKE 5 ML EVERY 4 HOURS BY ORAL ROUTE NEEDED FOR 10 DAYS. 11/12 completed Not Available Not Available Not Available carvedilo l 6.25 mg tablet Take 1 tablet twice a day by oral route for 30 days. 11/07 completed Not Available Not Available Not Available prednison e 10 mg tablet TAKE 3 TABLETS BY MOUTH ONCE DAILY DIRECTED FOR 5 DAYS 09/09 completed Not Available Not Available Not Available carvedilo l 12.5 mg tablet TAKE 1 TABLET TWICE A DAY active Not Available Not Available No t Available Depo-Medr ol 40 mg/mL suspensio n for injection Take 1 mL by injectio n route. 11/07 completed Not Available Not Available Not Available clindamyc in HCl 300 mg capsule 09/24 completed Not Available Not Available Not Available albuterol sulfate 2.5 mg/3 mL (0.083 %) solution for nebulizat ion Inhale 3 mL 3 times a day by nebuliza tion route. 06/28 completed Not Available Not Available Not Available trazodone 50 mg tablet TAKE 1 TABLET BY MOUTH ONCE DAILY AT BEDTIME FOR 30 DAYS 07/21 completed states hallucin ations Not Available Not Available Not Available cetirizin e 10 mg tablet Take 1 tablet every day by oral route. 2023 active Not Available Not Available Not Avai lable azithromy binta 250 mg tablet TAKE 2 TABLETS BY MOUTH TODAY, THEN TAKE 1 TABLET DAILY FOR 4 DAYS DIRECTED 10/07 completed Not Available Not Available Not Available pravastat in 40 mg tablet TAKE 1 TABLET EVERY DAY 09/24 completed Not Available Not Available Not Available clarithro mycin 500 mg tablet 11/07 completed Not Available Not Available Not Available sumatript an 100 mg tablet TAKE 1 TABLET AT ONSET OF HEADACHE DIRECTED ON DOSE PACK; IF NO RELIEF MAY REPEAT 1 TABLET AFTER AT LEAST 2 HOURS; MAX = 2 TABLETS PER 24 HOURS active Not Available Not Available No t Available hydrocodo ne 5 mg-acetam inophen 325 mg tablet 11/07 completed Not Available Not Available Not Available meloxicam 15 mg tablet TAKE 1 TABLET EVERY DAY 11/07 completed Not Available Not Available Not Available lisinopri l 20 mg tablet TAKE 1 TABLET TWICE DAILY 11/07 completed Not Available Not Available Not Available prednison e 20 mg tablet Take 2 tablets twice a day by oral route as directed for 10 days. 12/19 completed Not Available Not Available Not Available clindamyc in HCl 150 mg capsule TAKE 1 CAPSULE BY MOUTH EVERY 6 HOURS FOR 10 DAYS 04/02 completed Not Available Not Available Not Available acetamino phen 300 mg-codein e 30 mg tablet 09/09 completed Not Available Not Available Not Available chlorthal idone 25 mg tablet TAKE 1 TABLET EVERY MORNING active Not Available Not Available No t Available dextromet horphan-g uaifenesi n 10 mg-100 mg/5 mL oral syrup Take 10 mL 4 times a day by oral route. 2024 active Not Available Not Available Not Avai lable ciproflox acin 500 mg tablet TAKE ONE TABLET BY MOUTH TWICE DAILY EVERY MORNING & EVENING FOR INFECTIO N active Not Available Not Available No t Available sulfameth oxazole 800 mg-trimet hoprim 160 mg tablet TAKE 1 TABLET BY MOUTH TWICE DAILY FOR 7 DAYS 10/07 completed Not Available Not Available Not Available omeprazol e 40 mg capsule,d elayed release TAKE 1 CAPSULE DAILY BEFOREA MEAL active Not Available Not Available No t Available tramadol 50 mg tablet denied.. .do not refill 06/28 completed hallucin ations Not Available Not Available Not Available acetamino phen 500 mg tablet Take 2 tablets 3 times a day by oral route as needed for 30 days. 06/28 completed Not Available Not Available Not Available glimepiri de 1 mg tablet TAKE ONE TABLET BY MOUTH EVERY DAY 03/21 completed Not Available Not Available Not Available losartan 100 mg-hydroc hlorothia zide 25 mg tablet TAKE 1 TABLET BY MOUTH DAILY IN THE MORNING 07/04 completed Not Available Not Available Not Available baclofen 10 mg tablet TAKE 1 TABLET BY MOUTH TWICE DAILY NEEDED 02/04 completed Not Available Not Available Not Available deslorata dine 5 mg tablet Take 1 tablet every day by oral route for 90 days. 09/09 completed Not Available Not Available Not Available hydrocodo ne 7.5 mg-acetam inophen 325 mg tablet 09/09 completed Not Available Not Available Not Available erythromy binta 5 mg/gram (0.5 %) eye ointment APPLY 1 CM RIBBON INTO THE LOWER CONJUNCT IVAL SAC(S) IN THE AFFECTED EYE(S) BY OPHTHALM IC ROUTE at bedtime 12/19 completed Not Available Not Available Not Available ferrous sulfate 325 mg (65 mg iron) tablet Take 1 tablet every day by oral route with meals for 30 days. 2022 active Not Available Not Available Not Avai lable triamcino lone acetonide 0.1 % topical ointment APPLY THIN LAYER TOPICALL Y TO AFFECTED AREA 2-3 TIMES A DAY FOR ITCHING active Not Available Not Available No t Available nystatin 100,000 unit/gram topical cream APPLY CREAM TOPICALL Y TO AFFECTED AREA TWICE DAILY active Not Available Not Available No t Available lidocaine 5 % topical patch apply ONE PATCH every DAY FOR 12 hours THEN REMOVE FOR 12 hours 12/19 completed Not Available Not Available Not Available docusate sodium 100 mg capsule Take 1 capsule every day by oral route for 30 days. 09/09 completed Not Available Not Available Not Available omeprazol e 20 mg capsule,d elayed release TAKE 1 CAPSULE EVERY DAY 11/07 completed Not Available Not Available Not Available diclofena c sodium 75 mg tablet,de layed release TAKE 1 TABLET TWICE A DAY BY MOUTH FOR 30 DAYS, FOR FOOT PAIN. active Not Available Not Available No t Available hydrocort isone 2.5 % topical cream 09/09 completed Not Available Not Available Not Available monteluka st 10 mg tablet TAKE 1 TABLET AT BEDTIME FOR 30 DAYS active Not Available Not Available No t Available cyanocoba shawna (vit B-12) 1,000 mcg sublingua l tablet Place 1 tablet twice a day by sublingu al route for 30 days. 12/19 completed Not Available Not Available Not Available mupirocin 2 % topical ointment 09/09 completed Not Available Not Available Not Available clobetaso l 0.05 % topical ointment APPLY TO AFFECTED AREAS TWICE A DAY UP TO TWO WEEKS AT A TIME, NEEDED. active Not Available Not Available No t Available Viagra 100 mg tablet Take 1 tablet every day by oral route as needed for 10 days. 04/02 completed makes him feel weak , no energy Not Available Not Available Not Available fluticaso ne 100 mcg-salme terol 50 mcg/dose blistr powdr for inhalatio n INHALE ONE PUFF TWICE DAILY EVERY MORNING & EVENING RINSE MOUTH WITH WATER AFTER USE. DO NOT SWALLOW active Not Available Not Available No t Available levofloxa binta 500 mg tablet 09/09 completed Not Available Not Available Not Available levofloxa binta 750 mg tablet Take 1 tablet every day by oral route for 10 days. 11/07 completed Not Available Not Available Not Available methylpre dnisolone 4 mg tablets in a dose pack 10/03 completed Not Available Not Available Not Available albuterol sulfate HFA 90 mcg/actua tion aerosol inhaler USE 2 INHALATI ONS ORALLY EVERY 6 HOURS NEEDED FORWHEEZ ING OR SHORTNES S OF BREATH active Not Available Not Available No t Available ipratropi um bromide 42 mcg (0.06 %) nasal spray USE 2 SPRAYS IN EACH NOSTRIL TWICE DAILY active Not Available Not Available No t Available colchicin e 0.6 mg tablet TAKE 1 TABLET BY MOUTH EVERY DAY 10/07 completed Not Available Not Available Not Available ketoconaz ole 2 % topical cream APPLY TO THE AFFECTED AREA(S) BY TOPICAL ROUTE ONCE DAILY active Not Available Not Available No t Available lisinopri l 40 mg tablet Take 1 tablet twice a day by oral route for 90 days. 11/07 completed Not Available Not Available Not Available cefdinir 300 mg capsule TAKE 1 CAPSULE BY MOUTH EVERY 12 HOURS FOR 10 DAYS 08/08 completed Not Available Not Available Not Available losartan 100 mg tablet Take one tablet by mouth every morning. 07/11 completed Not Available Not Available Not Available fluticaso ne propionat e 50 mcg/actua tion nasal spray,cora pension USE 2 SPRAYS IN EACH NOSTRIL DAILY active Not Available Not Available No t Available neomycin- polymyxin -hydrocor t 3.5 mg-10,000 unit/mL-1 % ear drops,cora p INSTILL 4 DROPS INTO AFFECTED EAR(S) BY OTIC ROUTE 3 TIMES PER DAY 10/07 completed Not Available Not Available Not Available olmesarta n 40 mg tablet TAKE 1 TABLET AT BEDTIME active Not Available Not Available No t Available escitalop yamilex 10 mg tablet Take 1 tablet every day by oral route at dinner for 14 days. 05/24 completed Not Available Not Available Not Available escitalop yamilex 20 mg tablet Take 1 tablet every day by oral route at dinner for 90 days. 05/24 completed could not tolerate ; made him itch after 2 weeks Not Available Not Available Not Available ezetimibe 10 mg tablet Take 1 tablet every day by oral route in the morning for 90 days. 09/09 completed Not Available Not Available Not Available rosuvasta tin 10 mg tablet Take 2 tablets daily in the morning 06/19 completed Not Available Not Available Not Available rosuvasta tin 20 mg tablet TAKE 1 TABLET DAILY FOR 30 DAYS active Not Available Not Available No t Available vardenafi l 20 mg tablet Take 1 tablet every day by oral route for 10 days. 09/09 completed Not Available Not Available Not Available tadalafil 5 mg tablet TAKE ONE TABLET BY MOUTH ONCE EVERY DAY NEEDED active Not Available Not Available No t Available tadalafil 20 mg tablet Take 1 TABLET BY MOUTH 1 HOUR PRIOR TO SEXUAL ACTIVITY DIRECTED , NOT TO EXCEED 1 IN 24 HOURS. active Not Available Not Available No t Available losartan 100 mg-hydroc hlorothia zide 12.5 mg tablet Take 1 tablet(s ) every day by oral route in the morning for 30 days. 2017 active Not Available Not Available Not Avai lable sodium bicarbona te 650 mg tablet BID active nephrolo gy Not Available Not Available Not Available loratadin e 10 mg 1 tab po qd 06/28 completed Not Available Not Available Not Available Aspir-81 1 tab po qd 06/28 completed Not Available Not Available Not Available lisinopri l 11/07 completed Not Available Not Available Not Available [place]-3 Fish Oil 05/02 completed Not Available Not Available Not Available Zostavax (PF) 19,400 unit/0.65 mL subcutane ous suspensio n 09/09 completed Not Available Not Available Not Available Symbicort 160 mcg-4.5 mcg/actua tion HFA aerosol inhaler Inhale 2 puffs twice a day by inhalati on route for 30 days. 2023 active Not Available Not Available Not Avai lable Symbicort 80 mcg-4.5 mcg/actua tion HFA aerosol inhaler 11/07 completed Not Available Not Available Not Available Dulera 100 mcg-5 mcg/actua tion HFA aerosol inhaler INHALE TWO PUFFS BY MOUTH TWICE DAILY EVERY MORNING & AT BEDTIME. RINSE MOUTH WITH WATER AFTER USE. DO NOT SWALLOW FOR BEST RESULTS USE WITH A SPACER active Not Available Not Available No t Available Xarelto 10 mg tablet 09/24 completed Not Available Not Available Not Available OneTouch Verio test strips TEST ONCE DAILY active Not Available Not Available No t Available Invokana 300 mg tablet TAKE ONE TABLET BY MOUTH EVERY MORNING FOR DIABETES active Not Available Not Available No t Available Pennsaid 20 mg/gram/a ctuation (2 %) topical soln in metered-d ose pump APPLY 2 PUMPS TO THE AFFECTED AREAS TWO TIMES DAILY 06/21 completed Not Available Not Available Not Available guaifenes in ER 600 mg tablet, extended release 12 hr Take 1 tablet every 12 hours by oral route for 10 days. 2023 active Not Available Not Available Not Avai lable Incruse Ellipta 62.5 mcg/actua tion powder for inhalatio n Inhale 1 puff every day by inhalati on route for 30 days. 06/28 completed Not Available Not Available Not Available OneTouch Verio Flex Meter USE TO CHECK BLOOD SUGAR ONCE DAILY 12/19 completed Not Available Not Available Not Available Trelegy Ellipta 09/09 completed Not Available Not Available Not Available OneTouch Delica Plus Lancet 30 gauge USE TO CHECK BLOOD SUGAR ONCE DAILY 12/19 completed Not Available Not Available Not Available Trelegy Ellipta 200 mcg-62.5 mcg-25 mcg powder for inhalatio n INHALE 1 PUFF BY MOUTH ONCE DAILY DIRECTED 10/01 completed Not Available Not Available Not Available BinaxNOW COVID-19 Ag Self Test kit Use as Directed on the Package 12/19 completed Not Available Not Available Not Available Vitals Date Recorded Body height Body mass index (BMI) Body weight Heart rate Body temperature Oxygen saturation Oxygen saturation in Arterial blood by Pulse oximetry Systolic And Diastolic Provider Name and Address Organization Details Last Updated DateTime 5 174.09 cm 34.6 kg/m2 268564. 84 g 81 /min 99.1 [degF] 96 % 96 % 126/81 mm[Hg] Jaymie Huizar [place] - [facility] 5 15:30:33 Date Recorded Body height Body mass index (BMI) Body weight Heart rate Oxygen saturation Oxygen saturation in Arterial blood by Pulse oximetry Systolic And Diastolic Provider Name and Address Organization Details Last Updated DateTime 5 174.09 cm 34.6 kg/m2 140804. 84 g 69 /min 96 % 96 % 143/75 mm[Hg] Carine Nuñez MA [place] - [facility] 5 11:49:23 Date Recorded Body height Body mass index (BMI) Body weight Heart rate Body temperature Oxygen saturation Oxygen saturation in Arterial blood by Pulse oximetry Systolic And Diastolic Provider Name and Address Organization Details Last Updated DateTime 4 174.09 cm 34.3 kg/m2 423385. 65 g 62 /min 98 [degF] 98 % 98 % 134/81 mm[Hg] Jaymie Huizar [place] [facility] 4 12:05:06 Date Recorded Body height Body mass index (BMI) Body weight Oxygen saturation Oxygen saturation in Arterial blood by Pulse oximetry Heart rate Systolic And Diastolic Provider Name and Address Organization Details Last Updated DateTime 4 174.09 cm 35 kg/m2 131903. 9 g 96 % 96 % 72 /min 142/86 mm[Hg] Carine Nuñez [place] - [facility] 4 13:01:06 Social History Question Answer Notes LastModified by Organizat ion Details LastModified Time Tobacco Smoking Status Former Smoker Not Available [facility] 03/31/2020 03:43:24 Are You Blind Or Do You Have Difficulty Seeing? No [id number] Information not available 03/31/2020 What Is Your Level Of Caffeine Consumption? Moderate [id number] Information not available 03/31/2020 How Much Tobacco Do You Chew? None [id number] Information not available 03/31/2020 In The 14 Days Before Symptom Onset, Have You Had Close Contact With A Laboratory-confi rmed COVID-19 While That Case Was Ill? No Information not available 07/10/2020 In The 14 Days Before Symptom Onset, Have You Had Close Contact With A Person Who Is Under Investigation For COVID-19 While That Person Was Ill? No Information not available 07/10/2020 Have You Been To An Area Known To Be High Risk For COVID-19? No Information not available 07/10/2020 Are You Deaf Or Do You Have Serious Difficulty Hearing? No [id number] Information not available 03/31/2020 What Type Of Diet Are You Following? REGULAR [id number] Information not available 03/31/2020 Which Illicit Or Recreational Drugs Have You Used? Marijuana [id number] Information not available 03/31/2020 Education 2 Year College Information not available 07/04/2014 Hard Of Hearing Or Deaf In One Or Both Ears? No Information not available 07/04/2014 Legally Blind In One Or Both Eyes? No Information not available 07/04/2014 Marital Status Informatio n not available 07/04/2014 What Was The Date Of Your Most Recent Tobacco Screening? 05/09/2024 Information not available 05/09/2024 Performs Monthly Self-breast Exam? No Information not available 07/04/2014 What Is Your Relationship Status? Information not available 07/10/2020 Do You Use Your Seat Belt Or Car Seat Routinely? Yes Information not available 07/10/2020 Seat Belts Used Routinely Yes Information not available 07/04/2014 Are You Sexually Active? No Ayesha Does Work But Generally After Going To Bed Information not available 07/10/2020 Smoke Alarm In Home Yes Information not available 07/04/2014 Do You Have Smoke And Carbon Monoxide Detectors In Your Home? Yes Information not available 07/10/2020 At What Age Did You Start Smoking Tobacco? 17 Information not available 07/10/2020 Are You Passively Exposed To Smoke? No Information not available 07/10/2020 How Much Tobacco Do You Smoke? No [id number] Information not available 03/31/2020 General Stress Level Low Information not available 07/04/2014 Do You Use Sunscreen Routinely? No I Dont Get Outside Much Information not available 07/10/2020 Has Tobacco Cessation Counseling Been Provided? No [email or web address] Information not available 06/21/2022 On What Date Was Tobacco Cessation Counseling Provided? 05/09/2024 Information not available 05/09/2024 How Many Years Have You Smoked Tobacco? 40 Information not available 07/10/2020 Do You Have Difficulty Walking Or Climbing Stairs? No [id number] Information not available 03/31/2020 Sex: Male Functional Status Question Answer Note LastModified by Organizat ion Details LastModified Time Do you use any illicit or recreational drugs? Yes [email or web address] Information not available 04/02/2021 Do you or have you ever used any other forms of tobacco or nicotine? No Information not available 07/10/2020 What is your level of alcohol consumption? Occasional [id number] Information not available 03/31/2020 Do you or have you ever used smokeless tobacco? Never used smokeless tobacco [id number] Information not available 03/31/2020 Are you currently employed? No Information not available 07/10/2020 Do you have difficulty doing errands alone? No [id number] Information not available 03/31/2020 Are you able to care for yourself independently? 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 No [id number] Information not available 03/31/2020 Do you or have you ever used e-cigarettes or vape? Never used electronic cigarettes [id number] Information not available 03/31/2020 What is your exercise level? Occasional [id number] Information not available 03/31/2020 Mental Status Question Answer Note LastModified by Organizat ion Details LastModified Time Do you feel stressed (tense, restless, nervous, or anxious, or unable to sleep at night)? [id number] needs cpap but not adjusting well. cant nap Information not available 07/10/2020 Do you have difficulty concentrating, remembering or making decisions? No [id number] Information not available 03/31/2020 Family History Relationship Description Onset Age of this Age Resolved Age Notes LastModified by Organization Details LastModified Time Mother Asthma Not available 07/04/2014 16:24:18 Mother Hypertensive disorder Not available 2014 16:24:18 Sister Asthma Not available 07/04/2014 16:24:18 Sister Hypertensive disorder Not available 2014 16:24:18 Medical History Condition Response Diabetes N Anxiety Disorder Y High Blood Pressure Y Acid Reflux (GERD) Y COPD Y Allergies Y Immunizations Vaccine Type Date Status Note Provider Nam e and Address Organization Details Recorded Time COVID-19, mRNA, LNP-S, PF, 100 mcg/0.5mL dose or 50 mcg/0.25mL dose 1 completed Not Available [facility] 07/06/2023 22:45:26 COVID-19, mRNA, LNP-S, PF, 100 mcg/0.5mL dose or 50 mcg/0.25mL dose 1 completed Not Available [facility] 07/06/2023 22:45:27 COVID-19, mRNA, LNP-S, PF, 100 mcg/0.5mL dose or 50 mcg/0.25mL dose 1 completed Not Available [facility] 07/06/2023 22:45:27 Influenza, split virus, trivalent, preservative 4 completed Kathryn Calderon [place] null, [place] - [facility] 05/09/2024 13:23:42 Influenza, split virus, quadrivalent, preservative 7 completed Not Available [facility] 06/15/2019 02:51:00 Influenza, split virus, quadrivalent, preservative 8 completed Not Available [facility] 06/15/2019 02:50:29 Influenza, split virus, quadrivalent, preservative 9 completed Not Available [facility] 06/15/2019 02:51:03 Influenza, split virus, quadrivalent, preservative 0 completed Ankush Nuñez PA-C Attn: Accounting[address] [place], [address], [place] [facility] 04/03/2020 11:11:25 Influenza, split virus, quadrivalent, preservative 1 completed Angela Bowen [place], [place] [facility] 04/02/2021 11:00:26 Pneumococcal conjugate PCV 13 1 completed Angela Bow[place], [place] [facility] 04/02/2021 11:01:35 Influenza, split virus, quadrivalent, preservative 2 completed Ankush Nuñez PA-C Attn: Accounting[address] [place], [address], [place] [facility] 03/05/2022 10:32:46 Influenza, high-dose, quadrivalent, PF 3 completed Dulce Feliz MA [facility], [place] - [facility] 03/21/2023 11:57:13 Past Encounters Encounter ID Performer Location Encounter Start Date Encounter Closed Date Diagnosis/Indication Diagnosis SNOMED-CT Code Diagnosis ICD10 Code Diagnosis IMO Codes Diagnosis Note [id number] MAXWELL Goodwin (Adult Med) [address] [place] [address] [id number] 0 07/04/2014 15:57:37 07/04/2014 16:59:07 Coronary arteriosclerosis 36935620 Hypertensive disorder 68761014 Hyperlipidemia 12167948 Gastroesop hageal reflux disease 780408867 Low back pain 859748038 Greater tr ochanteric pain syndrome 6284950 Ankle pain 044389895 [id number] MD Antoni Isaac (Adult Med) [address] [place] [address] [id number] 0 07/01/2015 16:02:20 07/01/2015 17:45:58 Hypertensive disorder 06324366 I10 Hyperlipidemia 33774283 E78.5 Gastroesop hageal reflux disease 001586440 K21.9 Coronary arteriosclerosis 63806122 I25.10 Osteoarthr itis of knee 980828694 M17.9 [id number] MD Antoni Isaac (Adult Med) [address] [place] [address] [id number] 0 08/06/2015 16:16:02 08/06/2015 17:19:58 Hypertensive disorder 16659799 I10 Coronary arteriosclerosis 62656428 I25.10 Gastroesop hageal reflux disease 240854837 K21.9 Hyperlipidemia 73326735 E78.5 Low back pain 631854122 M54.5 Osteoarthr itis of knee 495899385 M17.9 History of operative procedure on knee 174451606 Z98.89 right knee: total knee Cellulitis of lower limb 100595528 L03.043 [id number] MAXWELL Goodwin (Adult Med) [address] [place] [address] [id number] 0 05/06/2016 13:55:03 05/10/2016 10:30:12 Dysphagia 32669316 R13.10 Dyspnea 760464698 R06.00 Upper resp iratory infection 24049080 J06.9 Impotence 606126343 N52. 9 Chronic ob structive pulmonary disease 05612411 J44.9 [id number] MD Antoni Isaac (Adult Med) [address] [place] [address] [id number] 0 07/22/2016 12:04:52 07/22/2016 12:54:18 Chronic obstructive pulmonary disease 99239527 J44.9 Hypertensive disorder 38 232003 I10 Gastroesop hageal reflux disease 884857506 K21.0 Hyperlipidemia 80308330 E78.5 Coronary arteriosclerosis 15433999 I25.10 Migraine 43566111 G43.90 9 [id number] MD Antoni Isaac (Adult Med) [address] [place] [address] [phone] 0 08/19/2016 09:57:38 08/19/2016 11:06:08 Sinusitis 16229825 J32.9 Acute otitis media 70643 03 H66.92 Gastroesop hageal reflux disease 686891304 K21.0 Hypertensive disorder 38 901645 I10 Hyperlipidemia 36418742 E78.5 Greater tr ochanteric pain syndrome 9256436 M70.62 Low back pain 973935164 M54.5 Osteoarthr itis of knee 165112258 M17.0 Screening for malignant neoplasm of prostate 734045438 Z12.5 [id number] MAXWELL Goodwin (Adult Med) [address] [place] [address] [id number] 0 11/07/2016 10:09:00 11/07/2016 17:18:37 Chronic obstructive pulmonary disease 89044097 J44.9 Gastroesop hageal reflux disease 599616867 K21.0 Hyperlipidemia 29965969 E78.5 Hypertensive disorder 38 359113 I10 Low back pain 594230854 M54.5 Osteoarthr itis of knee 099938976 M17.0 Administra tion of viral vaccine 44526582 Z23 [id number] MD Antoni Isaac (Adult Med) [address] [place] [address] [id number] 0 01/09/2017 10:09:52 01/09/2017 11:00:50 Tendinitis of wrist 669549651 M77.8 right hand 4th and 5th fingers numb.... Numbness of finger 73354 6001 R20.0 right 4th and 5th fingers Gastroesop hageal reflux disease 992019212 K21.0 Tendinitis of elbow or forearm 7813491351 06 M77.8 right Basal cell carcinoma of skin 577336323 C44.91 [id number] Mandeep Calero MD [facility] (Adult Med) [address] [place] [address] [phone] 0 03/27/2017 10:30:28 03/27/2017 11:26:52 Hypertensive disorder 97225543 I10 Hyperlipidemia 32659318 E78.5 Low back pain 981585284 M54.5 Chronic ob structive pulmonary disease 83348372 J44.9 Administra tion of influenza vaccine 39173756 Z23 Gastroesop hageal reflux disease 453472089 K21.0 Migraine 00254531 G43.90 9 Carpal remy huong syndrome 46341403 G56.03 [id number] Mandeep Calero MD [facility] (Adult Med) [address] [place] [address] [id number] 06/20/2017 09:58:51 06/20/2017 13:45:45 Hyperlipidemia 30664346 E78.5 Screening for malignant neoplasm of prostate 269427132 Z12.5 Strain of muscle of left shoulder 4837603338 9163647 S46.912A Screening for malignant neoplasm of colon 798976380 Z12.11 Allergic rhinitis 944145 04 J30.1 Gastroesop hageal reflux disease 699748163 K21.0 Coronary arteriosclerosis 49603872 I25.10 [id number] Mandeep Calero MD [facility] (Adult Med) [address] [place] [address] [id number] 0 07/10/2017 11:59:29 07/10/2017 13:21:14 Strain of muscle of left shoulder 9111555510 2261113 S46.912A Hyperlipidemia 01218118 E78.5 Allergic rhinitis 595390 04 J30.1 Hypertensive disorder 38 698368 I10 [id number] Mandeep Calero MD [facility] (Adult Med) [address] [place] [address] [id number] 0 10/03/2017 09:54:11 10/03/2017 10:53:08 Hyperlipidemia 43432294 E78.5 [id number] MD Antoni Isaac (Adult Med) [address] [place] [address] [id number] 0 11/14/2017 15:57:51 11/15/2017 08:56:15 Acute otitis media 1914699 H66.92 Folliculitis 84754598 L7 3.9 Low back pain 484244003 M54.5 Hyperlipidemia 14101214 E78.5 Infection of fingernail of left hand 3667675330 5408118 L03.012 Laceration of finger 274 265449 S61.218A 4th finger [id number] MD Antoni Isaac (Adult Med) [address] [place] [address] [id number] 0 11/21/2017 11:34:08 11/23/2017 14:33:06 Removal of suture 82976871 Z48.02 Laceration of finger 274 226546 S61.218A 4th finger [id number] MD Antoni Isaac (Adult Med) [address] [place] [address] [id number] 0 01/03/2018 09:45:26 01/03/2018 10:59:51 Chronic kidney disease stage 3 943657273 N18.3 Allergic rhinitis 440270 04 J30.1 Carpal remy huong syndrome 06724028 G56.03 Chronic ob structive pulmonary disease 16747947 J44.9 Gastroesop hageal reflux disease 618788851 K21.0 Hypertensive disorder 38 848656 I10 Hyperlipidemia 95822859 E78.5 [id number] MD Antoni Isaac (Adult Med) [address] [place] [address] [id number] 0 03/27/2018 10:10:42 03/27/2018 12:37:03 Hypertensive disorder 39303339 I10 Hyperlipidemia 54197728 E78.5 Allergic rhinitis 962133 04 J30.1 Low back pain 492544758 M54.5 Migraine 05345590 G43.90 9 Gastroesop hageal reflux disease 219525268 K21.0 Localized eruption of skin 685020605 R21 Screening for malignant neoplasm of colon 109948484 Z12.11 Administra tion of influenza vaccine 39351249 Z23 Chronic ob structive pulmonary disease 66250590 J44.9 Chronic ki dney disease stage 3 539275648 N18.3 [id number] MD Antoni Isaac (Adult Med) [address] [place] [address] [id number] 0 06/28/2018 09:19:31 06/28/2018 10:52:33 Localized eruption of skin 311127416 R21 Chronic ki dney disease stage 3 848236505 N18.3 Gastroesop hageal reflux disease 857023096 K21.0 Hyperlipidemia 13801109 E78.5 Low back pain 512859082 M54.5 Screening for malignant neoplasm of prostate 139904135 Z12.5 Obese 493971164 E66.9 Allergic rhinitis 911625 04 J30.1 Acute sinusitis 58390863 J01.90 Chronic ob structive pulmonary disease 09605091 J44.9 [id number] Mandeep Calero MD [facility] (Adult Med) [address] [place] [address] [id number] 07/24/2018 11:15:00 07/25/2018 09:41:22 Sinusitis 92832760 J32.9 Chronic ob structive pulmonary disease 92798180 J44.9 Obese 695578659 E66.9 High hemog lobin A1c level 891138473 R73.09 Anemia 544070448 D64.9 Chronic ki dney disease stage 3 814754435 N18.3 Allergic rhinitis 089493 04 J30.1 Gastroesop hageal reflux disease 725535554 K21.0 Hyperlipidemia 51646101 E78.5 Low back pain 991188233 M54.5 Hypertensive disorder 38 652655 I10 Greater tr ochanteric pain syndrome 9575785 M70.62 Coronary arteriosclerosis 39352412 I25.10 Osteoarthr itis of knee 248836641 M17.0 Impotence 065942987 N52. 9 [id number] MD Antoni Isaac (Adult Med) [address] [place] [address] [id number] 0 09/24/2018 10:31:24 09/24/2018 11:16:07 Chronic obstructive pulmonary disease 83212122 J44.9 Localized eruption of skin 385268244 R21 Pilonidal cyst 99288727 L05.91 Gastroesop hageal reflux disease 691531376 K21.0 Osteoarthr itis of knee 940861588 M17.0 Low back pain 327512607 M54.5 Hyperlipidemia 11720366 E78.5 Coronary arteriosclerosis 05006701 I25.10 Hypertensive disorder 38 206701 I10 [id number] Mandeep Calero MD [facility] (Adult Med) [address] [place] [address] [id number] 0 11/23/2018 11:13:33 11/23/2018 15:41:56 Migraine 96962532 G43.909 Impotence 839688927 N52. 9 High hemog lobin A1c level 125560960 R73.09 Hyperlipidemia 72291875 E78.5 Coronary arteriosclerosis 14275002 I25.10 Hypertensive disorder 38 976573 I10 Low back pain 694934643 M54.5 Osteoarthr itis of knee 712037230 M17.0 Gastroesop hageal reflux disease 771218511 K21.0 Chronic ob structive pulmonary disease 04056079 J44.9 Allergic rhinitis 154816 04 J30.1 Chronic ki dney disease stage 3 519446457 N18.3 [id number] Mandeep Calero MD [facility] (Adult Med) [address] [place] [address] [id number] 0 02/22/2019 10:20:00 02/25/2019 09:18:31 Depressive disorder 38533599 F33.8 Administra tion of influenza vaccine 16531562 Z23 Obese 698510121 E66.9 Chronic ki dney disease stage 3 400945878 N18.3 Allergic rhinitis 787975 04 J30.1 Chronic ob structive pulmonary disease 01187039 J44.9 Migraine 55700650 G43.90 9 Impotence 590847012 N52. 9 Gastroesop hageal reflux disease 798382074 K21.0 Osteoarthr itis of knee 634719101 M17.0 Hyperlipidemia 71215713 E78.5 Coronary arteriosclerosis 37659389 I25.10 Hypertensive disorder 38 441171 I10 Low back pain 358999164 M54.5 [id number] MD Antoni Isaac (Adult Med) [address] [place] [address] 70566-774 0 05/24/2019 10:27:41 05/24/2019 12:33:27 Acute sinusitis 30761574 J01.90 Upper resp iratory infection 31765506 J06.9 Allergic rhinitis 338115 04 J30.1 Sinusitis 70671038 J32.9 Anemia 420425959 D64.9 Chronic ki dney disease stage 3 930891735 N18.3 Chronic ob structive pulmonary disease 41635444 J44.9 Coronary arteriosclerosis 21407188 I25.10 Depressive disorder 3548 9007 F33.8 Low back pain 174466595 M54.5 Obese 767967919 E66.9 Osteoarthr itis of knee 826623849 M17.0 [id number] [facility] [address] [place] [address] 63776-453 0 08/23/2019 10:09:11 08/23/2019 11:17:14 Chronic kidney disease stage 3 938091387 N18.3 Gastroesop hageal reflux disease 678076201 K21.0 High hemog lobin A1c level 268301273 R73.09 Hyperlipidemia 51918012 E78.5 Hypertensive disorder 38 797080 I10 Obese 871667671 E66.9 Chronic ob structive pulmonary disease 10029906 J44.9 Acute sinusitis 92760858 J01.90 Allergic rhinitis 886564 04 J30.1 Greater tr ochanteric pain syndrome 2338689 M70.62 Osteoarthr itis of knee 385413552 M17.0 Low back pain 816785814 M54.5 Deviated nasal septum 12 0242634 J34.2 [id number] Mandeep Calero MD [facility] (Adult Med) [address] [place] [address] [phone] 0 09/23/2019 09:52:41 09/23/2019 11:43:10 Acute sinusitis 81303453 J01.90 Allergic rhinitis 912221 04 J30.1 Chronic ki dney disease stage 3 263585710 N18.3 Chronic ob structive pulmonary disease 82126310 J44.9 Coronary arteriosclerosis 32643834 I25.10 Hyperlipidemia 91716017 E78.5 Hypertensive disorder 38 880317 I10 Low back pain 657912531 M54.5 Osteoarthr itis of knee 772408535 M17.0 [id number] Mandeep Calero MD [facility] (Adult Med) [address] [place] [address] [id number] 0 01/31/2020 08:09:26 01/31/2020 11:06:56 Allergic rhinitis 80735681 J30.1 Chronic ki dney disease stage 3 082720295 N18.3 Chronic ob structive pulmonary disease 36747646 J44.9 Depressive disorder 3548 9007 F33.8 Gastroesop hageal reflux disease 242545773 K21.0 Hyperlipidemia 41217606 E78.5 Low back pain 994181470 M54.5 Obese 259520198 E66.9 Greater tr ochanteric pain syndrome 6293613 M70.62 Localized eruption of skin 833109641 R21 Coronary arteriosclerosis 58956297 I25.10 Carpal remy huong syndrome 82359954 G56.03 [id number] Mandeep Calero MD [facility] (Adult Med) [address] [place] [address] [id number] 0 04/03/2020 09:44:13 04/03/2020 12:33:17 Impotence 468832459 N52.9 Lumbosacra l radiculopathy 3263038 M54.17 Administra tion of influenza vaccine 84755295 Z23 Low back pain 218414353 M54.5 Migraine 20721930 G43.90 9 Hyperlipidemia 12860263 E78.5 Hypertensive disorder 38 901496 I10 Gastroesop hageal reflux disease 667705045 K21.9 Depressive disorder 3548 9007 F33.8 Chronic ob structive pulmonary disease 76039330 J44.9 Anemia 004917231 D64.9 Vasomotor rhinitis 00177 03 J30.0 [id number] Mandeep Calero MD [facility] (Adult Med) [address] [place] [address] [id number] 0 07/10/2020 11:46:06 07/10/2020 16:24:06 Lumbosacral radiculopathy 6604217 M54.17 Acute otitis media 30895 03 H66.92 Chronic ob structive pulmonary disease 46167718 J44.9 Insomnia 749053246 G47.0 0 Allergic rhinitis 976271 04 J30.1 Chronic ki dney disease stage 3 116036303 N18.30 Coronary arteriosclerosis 35963395 I25.10 Depressive disorder 3548 9007 F33.8 Gastroesop hageal reflux disease 572660617 K21.9 Hyperlipidemia 72432146 E78.5 Hypertensive disorder 38 038678 I10 Sleep apnea 57421536 G47 .30 [id number] Mandeep Calero MD [facility] (Adult Med) [address] [place] [address] 69724-305 0 10/07/2020 09:08:08 10/07/2020 11:48:14 Allergic rhinitis 50430942 J30.1 Chronic ki dney disease stage 3 393501119 N18.30 Chronic ob structive pulmonary disease 40164353 Z87.891 Gastroesop hageal reflux disease 807276236 K21.9 Hypertensive disorder 38 485706 I10 Insomnia 587226168 G47.0 0 Obese 309240315 E66.9 Osteoarthr itis of knee 591248093 M17.0 Sleep apnea 20013165 G47 .30 Migraine 23862515 G43.90 9 Lumbosacra l radiculopathy 9088697 M54.17 Acute sinusitis 74254431 J01.90 [id number] Mandeep Calero MD [facility] (Adult Med) [address] [place] [address] [id number] 0 02/19/2021 09:53:37 02/19/2021 12:01:35 Lumbosacral radiculopathy 6845365 M54.17 Chronic ob structive pulmonary disease 89473778 Z87.891 Allergic rhinitis 548313 04 J30.1 Chronic ki dney disease stage 3 133756761 N18.30 Coronary arteriosclerosis 89209234 I25.10 Acute sinusitis 27492284 J01.90 Acute otitis media 30558 03 H66.92 right Impotence 762210087 N52. 9 Migraine 95900389 G43.90 9 Screening for malignant neoplasm of prostate 823526655 Z12.5 Hyperlipidemia 31794257 E78.5 Carpal remy huong syndrome 98810345 G56.03 Vitamin D below reference range 328645348 E55.9 Gastroesop hageal reflux disease 393787762 K21.9 Greater tr ochanteric pain syndrome 5563865 M70.62 High hemog lobin A1c level 507580883 R73.09 Hypertensive disorder 38 425196 I10 Insomnia 425269554 G47.0 0 Low back pain 402149115 M54.5 Obese 101617005 E66.9 Osteoarthr itis of knee 675916856 M17.0 Sleep apnea 36486017 G47 .30 [id number] Mandeep Calero MD [facility] (Adult Med) [address] [place] [address] [phone] 0 04/02/2021 09:27:53 04/02/2021 11:11:42 Lumbosacral radiculopathy 4509555 M54.17 Chronic ob structive pulmonary disease 72559667 Z87.891 Chronic ki dney disease stage 3 039473920 N18.30 Administra tion of influenza vaccine 96755175 Z23 Administra tion of pneumococcal vaccine 15567755 Z23 Erectile dysfunction 860 577371 F52.21 [id number] Mandeep Calero MD [facility] (Adult Med) [address] [place] [address] [phone] 0 06/02/2021 09:43:00 06/02/2021 12:55:14 Lumbosacral radiculopathy 2057414 M54.17 Chronic ob structive pulmonary disease 24054486 Z87.891 Coronary arteriosclerosis 81828625 I25.10 Hyperlipidemia 29637427 E78.5 Gastroesop hageal reflux disease 322229425 K21.9 Migraine 06749672 G43.90 9 Allergic rhinitis 677901 04 J30.1 Cough 67407644 R05.9 Basal cell carcinoma of skin 305383600 C44.91 Chronic ki dney disease stage 3 597972079 N18.30 Vitamin D below reference range 567852615 E55.9 Erectile dysfunction 860 747045 F52.21 Hypertensive disorder 38 371649 I10 Insomnia 340657497 G47.0 0 Low back pain 019695468 M54.50 Osteoarthr itis of knee 861253029 M17.0 Sleep apnea 10163407 G47 .30 [id number] MD [facility] (Adult Med) [address] [place] [address] [phone] 0 08/02/2021 15:52:29 08/02/2021 16:58:38 Chronic obstructive pulmonary disease 05645625 Z87.891 Acute conjunctivitis 537 27800 H10.31 Acute pain of scrotum 72 6883457 N50.82 Gastroesop hageal reflux disease 052409542 K21.9 Right inguinal hernia 23 8913781 K40.90 Sleep apnea 85243519 G47 .30 Osteoarthr itis of knee 261054226 M17.0 Low back pain 913912644 M54.50 Insomnia 316567035 G47.0 0 Hypertensive disorder 38 246868 I10 Hyperlipidemia 07657643 E78.5 Greater tr ochanteric pain syndrome 8859743 M70.62 Vitamin D below reference range 005210523 E55.9 Depressive disorder 3548 9007 F33.8 Coronary arteriosclerosis 14167934 I25.10 Chronic ki dney disease stage 3 872796990 N18.30 Allergic rhinitis 964805 04 J30.1 [id number] Mandeep Calero MD [facility] (Adult Med) [address] [place] [address] [phone] 0 09/09/2021 09:56:28 09/10/2021 09:09:53 Acute conjunctivitis 71042408 H10.31 Chronic ob structive pulmonary disease 77617815 Z87.891 Hyperlipidemia 20127169 E78.5 Hypertensive disorder 38 918152 I10 Lumbosacra l radiculopathy 7657189 M54.17 Allergic rhinitis 674402 04 J30.1 Coronary arteriosclerosis 33335472 I25.10 Acute pain of scrotum 72 0490390 N50.82 Depressive disorder 3548 9007 F33.8 Vitamin D below reference range 442216894 E55.9 Gastroesop hageal reflux disease 386629897 K21.9 Greater tr ochanteric pain syndrome 7810528 M70.62 Insomnia 384203368 G47.0 0 Osteoarthr itis of knee 659372586 M17.0 Right inguinal hernia 23 9977229 K40.90 Sleep apnea 09881251 G47 .30 [id number] MD [facility] (Adult Med) [address] [place] [address] [phone] 0 11/12/2021 09:51:35 11/16/2021 09:26:21 Tinea capitis 3074277 B35.0 Chronic ob structive pulmonary disease 10811523 Z87.891 Low back pain 684678220 M54.50 Lumbosacra l radiculopathy 9726170 M54.17 Allergic rhinitis 884747 04 J30.1 Chronic ki dney disease stage 3 547625418 N18.30 Vitamin D below reference range 130261797 E55.9 Depressive disorder 3548 9007 F33.8 Gastroesop hageal reflux disease 463112720 K21.9 Hyperlipidemia 20985829 E78.5 Hypertensive disorder 38 410301 I10 Insomnia 440706300 G47.0 0 Osteoarthr itis of knee 709024406 M17.0 Sleep apnea 50986430 G47 .30 Bilateral osteoarthritis of finger of hands 5215552807 06695 M19.041 M19.743 [id number] Mandeep Calero MD [facility] (Adult Med) [address] [place] [address] [phone] 0 03/02/2022 12:36:33 03/03/2022 08:48:57 Hernia of anterior abdominal wall 942141321 K43.9 Administra tion of influenza vaccine 85068860 Z23 Tinea capitis 2647066 B3 5.0 Chronic ki dney disease stage 3 401953045 N18.30 Screening for malignant neoplasm of prostate 576562016 Z12.5 Chronic ob structive pulmonary disease 20576187 Z87.891 Allergic rhinitis 596645 04 J30.1 High hemog lobin A1c level 093491344 R73.09 Insomnia 654124527 G47.0 0 Obese 737112152 E66.9 Bilateral osteoarthritis of finger of hands 9908168278 99685 M19.041 M19.042 Coronary arteriosclerosis 45899744 I25.10 Cyst of epididymis 60365 002 N50.3 Vitamin D below reference range 616508180 E55.9 Depressive disorder 3548 9007 F33.8 Erectile dysfunction 860 222549 F52.21 Gastroesop hageal reflux disease 687632976 K21.9 Hyperlipidemia 31027141 E78.5 Hypertensive disorder 38 822745 I10 Low back pain 192292354 M54.50 Lumbosacra l radiculopathy 1083684 M54.17 Osteoarthr itis of knee 335529920 M17.0 Right inguinal hernia 23 0752299 K40.90 Serum bettie min B12 borderline low 610623778 R79.89 Sleep apnea 87940846 G47 .30 [id number] MD [facility] (Adult Med) [address] [place] [address] [phone] 0 05/02/2022 12:28:16 05/03/2022 16:52:03 Pain in scrotum 18520032 N50.82 Type 2 stalin betes mellitus 07803221 E11.9 Chronic ki dney disease stage 3 761636219 N18.30 [id number] MD [facility] (Adult Med) [address] [place] [address] 04185-016 0 06/21/2022 09:51:00 06/24/2022 16:22:22 Anemia 841567922 D64.9 Chronic ki dney disease stage 3 335543820 N18.30 History of polyp of colon 645595351 Z86.010 Hypertensive disorder 38 944823 I10 Coronary arteriosclerosis 37093663 I25.10 Migraine 32077309 G43.90 9 Erectile dysfunction 860 407113 F52.21 Low back pain 676288651 M54.50 Hyperlipidemia 62586167 E78.5 [id number] MD [facility] (Adult Med) [address] [place] [address] 63406-433 0 12/19/2022 10:03:34 12/20/2022 10:11:57 Obesity 732324266 E66.9 Chronic ki dney disease stage 3 894439257 N18.30 F/U with nephrology Coronary arteriosclerosis 99146461 I25.10 Diverticular disease 397 536142 K57.90 Gastroesop hageal reflux disease 619740382 K21.9 Type 2 stalin betes mellitus 67003516 E11.9 History of polyp of colon 628820817 Z86.010 Colonoscop y 2017 [id number] MD [facility] (Adult Med) [address] [place] [address] [phone] 0 03/21/2023 10:06:46 03/22/2023 12:54:39 Obesity 729296940 E66.9 Type 2 stalin betes mellitus 39126655 E11.9 Screening for malignant neoplasm of prostate 562125038 Z12.5 Screening for malignant neoplasm of colon 859393172 Z12.11 Refuses at present Obese 606988397 E66.9 History of polyp of colon 576115245 Z86.010 Colonoscop y 2018 Diverticular disease 397 739976 K57.90 Administra tion of influenza vaccine 51260316 Z23 [id number] Bonnie Beltran MD [facility] (Adult Med) [address] [place] [address] 36123-443 0 07/04/2023 10:18:15 07/13/2023 10:04:46 Obesity 202175862 E66.9 Chronic ki dney disease stage 3 176774252 N18.30 F/U with nephrology Chronic ob structive pulmonary disease 61816290 Z87.891 Diverticular disease 397 813602 K57.90 Hypertensive disorder 38 617448 I10 Type 2 stalin betes mellitus 29737279 E11.9 Migraine 89323053 G43.90 9 Disorder of skin 7872434 5 L98.9 [id number] MD [facility] (Adult Med) [address] [place] [address] [phone] 0 10/02/2023 10:36:12 10/03/2023 08:09:19 Obesity 127860513 E66.9 Allergic rhinitis 937086 04 J30.9 Chronic ki dney disease stage 3 992993062 N18.30 F/U with nephrology Chronic ob structive pulmonary disease 24589697 Z87.891 F/U pulmonary Diverticular disease 397 850185 K57.90 Dyspnea 085103500 R06.02 Gastroesop hageal reflux disease 040223990 K21.9 Coronary arteriosclerosis 47907040 I25.10 F/U cardiology [id number] MD [facility]i [facility] (Adult Med) [address] [place] [address] [phone] 0 02/05/2024 11:55:10 02/06/2024 12:01:13 Type 2 diabetes mellitus 28477889 E11.9 Erectile dysfunction 860 973613 F52.21 Sleep apnea 56351767 G47 .30 Transient cerebral ischemia 438438899 G45.9 Vitamin D below reference range 134508808 E55.9 Allergic rhinitis 621688 04 J30.9 [id number] Jessica Kumar MD [facility] (Adult Med) [address] [place] [address] 61809-579 0 05/09/2024 12:30:43 05/10/2024 14:34:53 Acute sinusitis 62129107 J01.90 Productive cough 8809697 5 R05.9 Acute otitis externa 302 42169 H60.509 Obesity 806170792 E66.81 2 BMI 35 [id number] Bonnie Beltran MD [facility] (Adult Med) [address] [place] [address] [phone] 0 07/10/2024 08:30:21 07/16/2024 13:58:23 Allergic rhinitis 69967935 J30.9 Sinusitis 24920128 J32.9 Acute otitis media 25670 03 H66.92 Cough 16363448 R05.9 [id number] Bonnie Beltran MD [facility] (Adult Med) [address] [place] [address] [phone] 0 07/24/2024 15:12:13 07/25/2024 12:41:04 Fever 979796298 R50.9 Upper resp iratory infection 84734163 J06.9 Pain of ri ght ankle joint 2499868603 6662605 M25.571 Pt to remain off joint. Xrays if persistent plus acetaminop hen [id number] Bonnie Beltran MD [facility] (Adult Med) [address] [place] [address] 76657-839 0 10/07/2024 11:16:11 10/09/2024 16:21:34 Chronic kidney disease stage 3 041802305 N18.30 F/U with nephrology Chronic ob structive pulmonary disease 51908883 Z87.891 F/U pulmonary Coronary arteriosclerosis 32845123 I25.10 F/U cardiology Diverticular disease 397 254497 K57.90 Gastroesop hageal reflux disease 163854710 K21.9 Hypertensive disorder 38 154071 I10 Low back pain 743977166 M54.50 Health Concerns Section Related Observation LastModified by Organization Detai ls LastModified Time None Recorded Concern Status LastModified by Organization Details LastModified Time None Recorded Advance Directives Directive None Recorded Payers Insurance Date Sequence Insurance Name Policy Number Policy Gallagher Covered Member ID Gallagher Member ID Guarantor Name 10/04/2024 1 [employer] (MEDICARE REPLACEMENT/A DVANTAGE - HMO) [id number] Edward D Zhane [id number] Edward Zhane 03/21/2023 1 [place] Edward D Zhane [id number] Edward Zhane 03/21/2023 1 [facility] Edward Zhane [id number] Edward Zhane 03/21/2023 MEDICARE [place]: [facility] - [facility] Edward D Zhane [id number] Edward Zhane 07/14/2014 1 *SELF PAY* Ed blunt Zhane 03/21/2023 1 [facility] ([place]) Edward Zhane [id number] Edward Zhane 03/21/2023 1 [place] Edward D Zhane [id number] Edward Zhane 03/21/2023 2 [employer] [place] Edward Zhane [id number] Edward Zhane 06/13/2024 1 [facility] (MEDICARE REPLACEMENT/A DVANTAGE - HMO) [id number] Edward D Zhane [id number] Edward Zhane Notes Date Note Type Note Provider Name and Address Organization Details Recorded Time 02/05/2024 text/html Here for routine f/u. Has felt good for the past six months. Has runny nose at present. Groin pain has resolved. Left ear hurts off and on Bonnie Beltran MD Attn: Accounting[address] [place], [address], [facility] 02/05/2024 12:50:46 05/09/2024 text/html ROS as noted in the HPI 74 y/o M here for sick visit. Pt sees Dr. Beltran. Is c/o 2 weeks with cough and bilateral ear itching/pain. Pt states he has been taking OTC HTN cold medication and has some relief. Has had productive cough but cannot seem to get better. Denies fever or chills. Denies SOB, CP, LOMBARDO, N/V/D at this time. KINGSTON SOLANO PA-C Attn: Accounting[address] [facility], [place], [address], [facility] 05/09/2024 13:20:18 07/10/2024 text/html Telephone visit due to weather precautions. Pt initially needed routine visit but now both he and his have URI with productive cough, nasal drainage. He also has ear pain and was given a rx in Apr that he could not afford. Bonnie Beltran MD Attn: Accounting, [address] [facility], [place], [address], [facility] 07/10/2024 11:07:06 07/24/2024 text/html Here for f/u. Has persistent cough. This is controlled by OTC med( Chlorpheniramine & dextrometorphan). No headache. No generalized body ache. Developed pain in his right ankle since last evening Bonnie Beltran MD Attn: Accounting[address] [facility], [place], [address], [place] [facility] 07/24/2024 16:19:19 10/07/2024 text/html Here for routine f/u Bonnie Beltran MD Attn: Accounting,[address] [facility], [place], [address], [place] [facility] 10/07/2024 12:43:44
--- OUTSIDE RECORDS SUMMARY | 2025-03-27 01:47 | XMS_ITS | Data Portability ---
Author Organization [place] [facility], Main Office Address [address] [place] [address] Care Team Providers Care Wharfmaster Name Role Phone LUIS TOWNSEND Primary Care Provider LUIS TOWNSEND Referring Provider Assessment Encounter Date Assessment Date Assessment LastModified by Organization Details LastModified Time 09/30/2022 09/30/2022 Statement of medical necessity Mr Phelan has tried and failed multiple inhaled therapies and has best clinical benefit from Trelegy Ellipta 200 one puff daily To prevent exacerbation, hospitalization and he should remain on this as maintenance daily medication [email or web address] Not available 09/30/2022 11:33:40 10/03/2024 10/03/2024 This note is dictated and transcribed by [employer]. [employer] variances may occur. Despite proofreading, typographical errors may occur. Occasional wrong-word or 'zferv-q-[id number]' substitutions may have occurred due to the inherent limitations of voice recording. Read the chart carefully and recognize, using context, where substitutions have occurred. Not available 10/03/2024 17:01:09 10/24/2024 10/24/2024 This note is dictated and transcribed by [employer]. [employer] variances may occur. Despite proofreading, typographical errors may occur. Occasional wrong-word or 'dlerv-l-uidt' substitutions may have occurred due to the inherent limitations of voice recording. Read the chart carefully and recognize, using context, where substitutions have occurred. Not available 10/24/2024 11:41:22 Plan of Treatment Reminders Order Date Submit Date Provider Last Modified By Organization Details Last Modified Time Details Appointments None recorded. Lab None recorded. Referral None recorded. Procedures None recorded. Surgeries None recorded. Imaging XR, foot, 3 or more view 2024 025 [email or web address] [address] [facility] [address], [address], [place], [address], 5 15:55:27 US, duplex, arterial, lower extremity, complete 2024 025 [facility] ([facility] Sched[facility]), [address] [place], [address], 5 18:53:56 LDCT, chest, for lung cancer screening 2022 023 [email or web address] [facility] (Radiology), [address] [place], [address], 3 12:43:15 Medication Orders diclofenac sodium 75 mg tablet,gina yed release 2024 025 [facility][id number], [address] [facility], [place], [address], 5 15:56:30 Trelegy Ellipta 200 mcg-62.5 mcg-25 mcg powder for inhalation [email or web address] [place] [address] Pharmacy 1761, [address] [place] [address], [address], 5 16:25:01 albuterol sulfate HFA 90 mcg/actuati on aerosol inhaler 2022 023 [facility], [address] [place], [address], 3 13:39:17 albuterol sulfate 2.5 mg/3 mL (0.083 %) solution for nebulizatio n 2022 023 [facility], [address] [place], [address], 3 13:39:18 Trelegy Ellipta 200 mcg-62.5 mcg-25 mcg powder for inhalation 2022 023 [email or web address] [facility], [address] [facility], [place], [address], 5 16:25:01 Patient TargetsNo targets recorded. Patient Instructions Encounter Date Encounter Id Patient Instructions Last Modified By Organization Details Last Modified Time 10/03/2024 [id number] plantar fasciitis: exercises Not available 10/03/2024 15:55:27 plantar fasciiti s education Not available 10/03/2024 15:55:27 Reason for Referral None Reported. Results Created Date Observation Date Name Description Value Unit Range Abnormal Flag Note LastModifiedBy Organization Detail LastModifiedTime 04/08/20 22 04/08/2022 LDCT, chest , for lung cance r georgese donnell No observ ation record ed. [id number] [facility] Add On Lab Orders [address] [place], [address], 07/27/2022 03:14:00 04/29/20 22 04/25/2022 US, echoc ardio gram, trans thora cic, compl ete, w/ color flow No observ ation record ed. [id number] [facility] [address], [place], [address], 07/27/2022 03:14:00 04/13/20 23 04/11/2023 imagi ng/di agnos tic resul t No observ ation record ed. [email or web address] [facility] [address], [place], [address], 05/09/2023 13:42:17 04/14/20 23 04/13/2023 CT, chest , w/o contr ast No observ ation record ed. [email or web address] [facility] (Radiology) [address] [place], [address], 04/17/2023 15:36:23 04/14/20 23 04/11/2023 US, echoc ardio gram, trans thora cic, compl ete, w/ color flow No observ ation record ed. [email or web address] [facility] [address], [place], [address], 04/18/2023 09:17:51 10/04/19 25 XR, foot, 3 or more view No observ ation record ed. [facility] [place] [address], [place], [address], 10/03/2024 15:55:24 10/15/19 25 10/09/2024 US, duple x, arter ial, lower extre mity, compl ete No observ ation record ed. [facility] ([facility] Call Scheduling) [address] [place], [address], 10/15/2024 09:01:21 Result Notes None recorded. Problems Name Problem SNOMED Code Status Onset Date Resolution Date Notes Provider Name and Address Organization Details Recorded Time Disorder of shoulder 821859098 Active Not Available [facility] 4 13:56:46 Disorder of trunk 761623177 Active Not Available [facility] 4 13:56:47 Radiothera py follow-up 162307529 Active Not Available [facility] 4 13:56:47 Knee pain Active Not Available [facility] 4 13:56:47 Lesion of ulnar nerve 041455771 Active Not Available [facility] 4 13:56:47 Osteoarthr itis 470526516 Active Not Available [facility] 4 13:56:47 Pain in limb 85266982 Active Not Available [facility] 4 13:56:47 Chronic obstructiv e pulmonary disease 42331803 Active 2017 Not Available [facility] 4 13:56:47 Body mass index 30+ - obesity 104802710 Active 2017 Not Available [facility] 4 13:56:47 Daytime hypersomni a 5800349237177 2 Active 2017 Not Available [facility] 4 13:56:47 Dyspnea 712329538 Active 2018 Not Available [facility] 4 13:56:47 Cough 07772281 Active 2019 Not Available [facility] 4 13:56:47 Allergic rhinitis 42386928 Active 2019 Not Available [facility] 4 13:56:47 Ex-smoker 0681958 Active 2019 Not Available [facility] 4 13:56:47 Dyspnea on exertion 89592547 Active 2020 Not Available [facility] 4 13:56:47 Posterior rhinorrhea 02132809 Active 2020 Not Available [facility] 4 13:56:47 Obstructiv e sleep apnea syndrome 05254607 Active 2020 Not Available [facility] 4 13:56:47 Chronic recurrent sinusitis 856929238 Active 2020 Not Available [facility] 4 13:56:47 Prediabete s 211828267 Active 2021 Not Available [facility] 4 13:56:47 COVID-19 605547799 Active 2022 Not Available [facility] 4 13:56:47 Chronic cough 41475799 Active 2022 Not Available [facility] 4 13:56:47 Secondary pulmonary hypertensi on 42114053 Active 2022 Not Available [facility] 4 13:56:47 Plantar fasciitis 356510269 Active 2024 Michel Kelley DPM [address], [address], [place], [address] , [facility] 5 15:53:59 Peripheral arterial disease 194373762 Active 2024 Michel Kelley DPM [address], [address], [place], [address] , [facility] [employer] [facility] 5 15:54:12 Peripheral arterial occlusive disease 495259604 Active 2024 Michel Kelley DPM [address] [facility], [facility] [address], [place], [address] , [facility] [employer] [facility] 5 11:41:28 Pain of right heel 8088217658592 105 Active 2024 Michel Kelley DPM [address] [facility], [facility] [address], [place], [address] , [facility] [employer] [facility] 5 11:41:35 Problem Notes None recorded. Procedures Surgical History Date Name Laterality Status Provider Name and Address Organization Details Recorded Time other completed Not Available [facility] 05/2022 02:55:59 nasal sinus endoscopy completed Priti Jama [facility] [employer] [facility] 10/03/2024 16:26:03 Knee Replacement completed Priti Bai [facility] [employer] [facility] 10/03/2024 16:26:10 placement of stent in pulmonary artery completed Priti Jama [facility] [employer] [facility] 10/03/2024 16:26:18 Imaging Results None recorded. Procedure Notes None recorded. Medical Equipment None Reported. Allergies Allergen ID Allergen Name Allergen Category Reaction Reaction Severity Criticality Documentation Date Start Date Code Code System Note Provider Name and Address Organization Details Recorded Time 5440 Wellbutri n medicatio n hives Not available Not available 07/27/2022 16231 RxNorm Not Available [facility] 3 03:13:25 5441 Product containin g penicilli n (product) medicatio n rash Not available Not available 07/27/2022 92694 8001 SNOMED Not Available [facility] 3 03:13:25 5442 lidocaine medicatio n Not available Not available Not available 07/27/2022 6387 RxNorm Not Available [facility] 3 03:13:25 Medications Name Sig Start Date Stop Date Status Note LastModified by Organization Details LastModified Time cyclobenzap rine 10 mg tablet 08/27 completed Not Available Not Available Not Available metformin 500 mg tablet TAKE 1 TABLET IN THE MORNING AND 1 TABLET IN THEEVENIN G. TAKE WITH MEALS active Not Available Not Available No t Available carvedilol 6.25 mg tablet 06/27 completed Not Available Not Available Not Available prednisone 10 mg tablet Take 3 tablets every day by oral route as directed for 5 days. 12/01 completed Not Available Not Available Not Available carvedilol 12.5 mg tablet TAKE 1 TABLET TWICE A DAY active Not Available Not Available No t Available ipratropium 0.5 mg-albutero l 3 mg (2.5 mg base)/3 mL nebulizatio n soln Inhale 3 mL twice a day by nebulizat ion route as directed for 30 days. 01/02 completed Not Available Not Available Not Available albuterol sulfate 2.5 mg/3 mL (0.083 %) solution for nebulizatio n Inhale 3 mL 3 times a day by nebulizat ion route for 30 days. 2022 active Not Available Not Available Not Avai lable trazodone 50 mg tablet TAKE 1 TABLET BY MOUTH ONCE DAILY AT BEDTIME FOR 30 DAYS active Not Available Not Available No t Available azithromyci n 250 mg tablet TAKE 2 TABLETS BY MOUTH TODAY, THEN TAKE 1 TABLET DAILY FOR 4 DAYS DIRECTED 10/03 completed Not Available Not Available Not Available pravastatin 40 mg tablet 10/13 completed Not Available Not Available Not Available clarithromy binta 500 mg tablet 09/14 completed Not Available Not Available Not Available sumatriptan 100 mg tablet TAKE 1 TABLET BY MOUTH AT ONSET OF HEADACHE MAY REPEAT IN 2 HOURS NO MORE THAN 2 TABS IN 24 HOURS active Not Available Not Available No t Available hydrocodone 5 mg-acetamin ophen 325 mg tablet 01/15 completed Not Available Not Available Not Available meloxicam 15 mg tablet 10/13 completed Not Available Not Available Not Available lisinopril 20 mg tablet 10/13 completed Not Available Not Available Not Available prednisone 20 mg tablet Take 2 tablets every day by oral route as directed for 5 days. 09/30 completed Not Available Not Available Not Available clindamycin HCl 150 mg capsule TAKE 1 CAPSULE BY MOUTH EVERY 6 HOURS FOR 10 DAYS active Not Available Not Available No t Available acetaminoph en 300 mg-codeine 30 mg tablet 07/12 completed Not Available Not Available Not Available chlorthalid one 25 mg tablet TAKE 1 TABLET EVERY MORNING active Not Available Not Available No t Available ciprofloxac in 500 mg tablet 10/07 completed Not Available Not Available Not Available sulfamethox azole 800 mg-trimetho prim 160 mg tablet TAKE 1 TABLET BY MOUTH TWICE DAILY FOR 7 DAYS 10/03 completed Not Available Not Available Not Available omeprazole 40 mg capsule,del ayed release TAKE 1 CAPSULE DAILY BEFOREA MEAL active Not Available Not Available No t Available tramadol 50 mg tablet 01/15 completed Not Available Not Available Not Available glimepiride 1 mg tablet TAKE ONE TABLET BY MOUTH EVERY DAY 09/30 completed Not Available Not Available Not Available losartan 100 mg-hydrochl orothiazide 25 mg tablet 10/03 completed Not Available Not Available Not Available baclofen 10 mg tablet 09/30 completed Not Available Not Available Not Available desloratadi ne 5 mg tablet 07/17 completed Not Available Not Available Not Available hydrocodone 7.5 mg-acetamin ophen 325 mg tablet 01/02 completed Not Available Not Available Not Available erythromyci n 5 mg/gram (0.5 %) eye ointment 10/03 completed Not Available Not Available Not Available nortriptyli ne 10 mg capsule 01/15 completed Not Available Not Available Not Available ferrous sulfate 325 mg (65 mg iron) tablet 07/17 completed Not Available Not Available Not Available triamcinolo ne acetonide 0.1 % topical ointment APPLY THIN LAYER TOPICALLY TO AFFECTED AREA 2-3 TIMES A DAY FOR ITCHING active Not Available Not Available No t Available nystatin 100,000 unit/gram topical cream 07/17 completed Not Available Not Available Not Available lidocaine 5 % topical patch apply ONE PATCH every DAY FOR 12 hours THEN REMOVE FOR 12 hours active Not Available Not Available No t Available omeprazole 20 mg capsule,del ayed release 09/14 completed Not Available Not Available Not Available diclofenac sodium 75 mg tablet,gina yed release TAKE 1 TABLET TWICE A DAY BY MOUTH FOR 30 DAYS, FOR FOOT PAIN. active Not Available Not Available No t Available hydrocortis one 2.5 % topical cream 08/27 completed Not Available Not Available Not Available montelukast 10 mg tablet TAKE 1 TABLET DAILY AT BEDTIME active Not Available Not Available No t Available mupirocin 2 % topical ointment 07/17 completed Not Available Not Available Not Available clobetasol 0.05 % topical ointment APPLY TO AFFECTED AREAS TWICE A DAY UP TO TWO WEEKS AT A TIME, NEEDED. active Not Available Not Available No t Available diazepam 10 mg tablet 01/15 completed Not Available Not Available Not Available fluticasone 100 mcg-salmete rol 50 mcg/dose blistr powdr for inhalation INHALE ONE PUFF TWICE DAILY EVERY MORNING & EVENING RINSE MOUTH WITH WATER AFTER USE. DO NOT SWALLOW active Not Available Not Available No t Available levofloxaci n 500 mg tablet 01/02 completed Not Available Not Available Not Available levofloxaci n 750 mg tablet 09/14 completed Not Available Not Available Not Available albuterol sulfate HFA 90 mcg/actuati on aerosol inhaler USE 2 INHALATIO NS ORALLY EVERY 6 HOURS NEEDED FORWHEEZI NG OR SHORTNESS OF BREATH active Not Available Not Available No t Available ipratropium bromide 42 mcg (0.06 %) nasal spray USE 2 SPRAYS IN EACH NOSTRIL TWICE DAILY active Not Available Not Available No t Available colchicine 0.6 mg tablet TAKE 1 TABLET BY MOUTH EVERY DAY active Not Available Not Available No t Available ketoconazol e 2 % topical cream 10/03 completed Not Available Not Available Not Available lisinopril 40 mg tablet 08/27 completed Not Available Not Available Not Available cefdinir 300 mg capsule TAKE 1 CAPSULE BY MOUTH EVERY 12 HOURS FOR 10 DAYS 10/03 completed Not Available Not Available Not Available losartan 100 mg tablet 10/13 completed Not Available Not Available Not Available fluticasone propionate 50 mcg/actuati on nasal spray,suspe nsion INSTILL 2 PUFFS IN EACH NOSTRIL DAILY active Not Available Not Available No t Available loratadine 10 mg tablet Take 1 tablet every day by oral route. 07/17 completed Not Available Not Available Not Available ipratropium bromide 0.02 % solution for inhalation INHALE 1 VIAL IN NEBULIZER THREE TIMES DAILY 01/02 completed Not Available Not Available Not Available olmesartan 40 mg tablet TAKE 1 TABLET AT BEDTIME active Not Available Not Available No t Available escitalopra m 20 mg tablet 07/17 completed Not Available Not Available Not Available ezetimibe 10 mg tablet 10/13 completed Not Available Not Available Not Available rosuvastati n 10 mg tablet 10/03 completed Not Available Not Available Not Available rosuvastati n 20 mg tablet TAKE 1 TABLET DAILY (ADE HERNANDEZ THE 10 MG ROSUVASTA TIN 2 TABLETS DAILY) active Not Available Not Available No t Available tadalafil 20 mg tablet Take 1 TABLET BY MOUTH 1 HOUR PRIOR TO SEXUAL ACTIVITY DIRECTED, NOT TO EXCEED 1 IN 24 HOURS. active Not Available Not Available No t Available losartan 100 mg-hydrochl orothiazide 12.5 mg tablet 08/20 completed Not Available Not Available Not Available aspirin 81 mg 2021 active Not Available Not Available Not Avai lable Fish Oil 1200 mg daily 09/30 completed Not Available Not Available Not Available Vitamin D3 2020 active Not Available Not Available Not Avai lable Zostavax (PF) 19,400 unit/0.65 mL subcutaneou s suspension 07/14 completed Not Available Not Available Not Available Brovana 15 mcg/2 mL solution for nebulizatio n Inhale 2 mL twice a day by inhalatio n route as directed for 30 days. 01/02 completed Not Available Not Available Not Available Symbicort 160 mcg-4.5 mcg/actuati on HFA aerosol inhaler INHALE 2 PUFF(S) TWICE A DAY BY INHALATIO N ROUTE DIRECTED 12/01 completed Not Available Not Available Not Available Symbicort 80 mcg-4.5 mcg/actuati on HFA aerosol inhaler 10/01 completed Not Available Not Available Not Available Dulera 100 mcg-5 mcg/actuati on HFA aerosol inhaler INHALE TWO PUFFS BY MOUTH TWICE DAILY EVERY MORNING & AT BEDTIME. RINSE MOUTH WITH WATER AFTER USE. DO NOT SWALLOW FOR BEST RESULTS USE WITH A SPACER 10/03 completed Not Available Not Available Not Available loratadine 10 mg capsule Take by oral route. 08/27 completed Not Available Not Available Not Available Xarelto 10 mg tablet 01/15 completed Not Available Not Available Not Available OneTouch Verio test strips USE TO CHECK BLOOD SUGAR ONCE DAILY active Not Available Not Available No t Available Antibiotic (bacitracin zinc) 01/15 completed Not Available Not Available Not Available Combivent Respimat 20 mcg-100 mcg/actuati on solution for inhalation Inhale 1 puff 4 times a day by inhalatio n route as directed for 30 days. 01/02 completed Not Available Not Available Not Available Invokana 300 mg tablet TAKE ONE TABLET BY MOUTH EVERY MORNING FOR DIABETES 10/03 completed Not Available Not Available Not Available Pennsaid 20 mg/gram/act uation (2 %) topical soln in metered-dos e pump APPLY 2 PUMPS TO THE AFFECTED AREAS TWO TIMES DAILY active Not Available Not Available No t Available Incruse Ellipta 62.5 mcg/actuati on powder for inhalation 01/11 completed Not Available Not Available Not Available Stiolto Respimat 2.5 mcg-2.5 mcg/actuati on solution for inhalation Inhale 2 puffs every day by inhalatio n route as directed for 30 days. 12/21 completed Not Available Not Available Not Available Breo Ellipta 200 mcg-25 mcg/dose powder for inhalation Inhale 1 puff every day by inhalatio n route. 01/11 completed Not Available Not Available Not Available OneTouch Verio Flex Meter USE TO CHECK BLOOD SUGAR ONCE DAILY active Not Available Not Available No t Available oxygen 2 liters with activity & sleep 2020 active Not Available Not Available Not Avai lable OneTouch Delica Plus Lancet 30 gauge USE TO CHECK BLOOD SUGAR ONCE DAILY active Not Available Not Available No t Available Breztri Aerosphere 160 mcg-9mcg-4. 8mcg/actuat ion HFA aerosol inhaler Inhale 2 puffs twice a day by inhalatio n route as directed for 90 days. 10/03 completed Not Available Not Available Not Available Trelegy Ellipta 200 mcg-62.5 mcg-25 mcg powder for inhalation Inhale 1 puff every day by inhalatio n route as directed for 90 days. 10/03 completed Not Available Not Available Not Available BinaxNOW COVID-19 Ag Self Test kit Use as Directed on the Package 09/30 completed Not Available Not Available Not Available Vitals Date Recorded Body height Body mass index (BMI) Body weight Body temperature Heart rate Oxygen saturation Oxygen saturation in Arterial blood by Pulse oximetry Systolic And Diastolic Provider Name and Address Organization Details Last Updated DateTime 3 175.26 cm 35.1 kg/m2 471713. 98 g 97.7 [degF] 62 /min 93 % 93 % 130/70 mm[Hg] Angelique Hermosillo MA [facility] [employer] [facility] 3 09:44:59 Date Recorded Body height Body mass index (BMI) Body weight Heart rate Respiratory rate Oxygen saturation Oxygen saturation in Arterial blood by Pulse oximetry Systolic And Diastolic Provider Name and Address Organization Details Last Updated DateTime 5 175.26 cm 34 kg/m2 219386. 25 g 64 /min 14 /min 98 % 98 % 140/82 mm[Hg] Priti Jama [facility] [employer] [facility] 5 15:08:08 Date Recorded Body height Body mass index (BMI) Body weight Body temperature Heart rate Oxygen saturation Oxygen saturation in Arterial blood by Pulse oximetry Systolic And Diastolic Provider Name and Address Organization Details Last Updated DateTime 5 175.26 cm 34 kg/m2 589881. 25 g 98.2 [degF] 67 /min 92 % 92 % 169/85 mm[Hg] KAMRON Campos [facility] [employer] [facility] 5 11:17:44 Date Recorded Body mass index (BMI) Body height Oxygen saturation Oxygen saturation in Arterial blood by Pulse oximetry Heart rate Body temperature Body weight Systolic And Diastolic Provider Name and Address Organization Details Last Updated DateTime 2 35.4 kg/m2 175.26 cm 97 % 97 % 70 /min 97.8 [degF] 250277. 17 g 130/70 mm[Hg] Not Available [facility] 3 02:57:25 Date Recorded Body weight Heart rate Oxygen saturation Oxygen saturation in Arterial blood by Pulse oximetry Systolic And Diastolic Provider Name and Address Organization Details Last Updated DateTime 3 766419. 02 g 71 /min 95 % 95 % 130/80 mm[Hg] Jessy Martinez RN [facility] [employer] [facility] 3 09:58:24 Date Recorded Body height Body temperature Provider N lou and Address Organization Details Last Updated DateTime 04/03/2023 175.26 cm 97.3 [degF] Jessica Thakur MA [place] [facility] 04/03/2023 09:53:24 Social History Question Answer Notes LastModified by Organizat ion Details LastModified Time Tobacco Smoking Status Former Smoker Not Available [facility] 07/27/2022 02:42:07 What Is Your Level Of Caffeine Consumption? Occasional Information not available 10/03/2024 How Much Tobacco Do You Chew? None [id number] Information not available 07/27/2022 In The 14 Days Before Symptom Onset, Have You Had Close Contact With A Laboratory-confir med COVID-19 While That Case Was Ill? No [id number] Information not available 07/27/2022 In The 14 Days Before Symptom Onset, Have You Had Close Contact With A Person Who Is Under Investigation For COVID-19 While That Person Was Ill? No [id number] Information not available 07/27/2022 What Type Of Diet Are You Following? REGULAR [id number] Information not available 07/27/2022 Which Illicit Or Recreational Drugs Have You Used? Marijuanas [id number] Information not available 07/27/2022 What Was The Date Of Your Most Recent Tobacco Screening? 10/03/2024 Information not available 10/03/2024 What Is Your Relationship Status? [id number] Information not available 07/27/2022 At What Age Did You Start Smoking Tobacco? 16 [id number] Information not available 07/27/2022 Are You Passively Exposed To Smoke? Yes [id number] Information not available 07/27/2022 How Much Tobacco Do You Smoke? 2 PPD [id number] Information not available 07/27/2022 Has Tobacco Cessation Counseling Been Provided? No Information not available 10/03/2024 How Many Years Have You Smoked Tobacco? 45 [id number] Information not available 07/27/2022 Have You Recently Traveled Abroad? No [id number] Information not available 07/27/2022 Do You Have Any Dietary Restrictions? No [id number] Information not available 07/27/2022 Sex: Unknown Functional Status Question Answer Note LastModified by Organizat ion Details LastModified Time Do you use any illicit or recreational drugs? No Information not available 10/03/2024 Do you or have you ever used any other forms of tobacco or nicotine? No Information not available 10/03/2024 What is your level of alcohol consumption? None [id number] Information not available 07/27/2022 Do you or have you ever used smokeless tobacco? Never used smokeless tobacco [id number] Information not available 07/27/2022 Do you or have you ever used e-cigarettes or vape? Never used electronic cigarettes [id number] Information not available 07/27/2022 What is your exercise level? Occasional [id number] Information not available 07/27/2022 Mental Status None recorded. Family History Relationship Description Onset Age of this Age Resolved Age Notes LastModified by Organization Details LastModified Time Father Hypertensive disorder [id number] Not available 07/27/2022 02:56:01 Mother Hypertensive disorder [id number] Not available 07/27/2022 02:56:01 Mother Aneurysm [id number] Not available 07/27/2022 02:56:01 Mother Cerebrovascu lar accident Not available 12/2024 16:25:34 Medical History Condition Response ARTHRITIS Y HEADACHES/MIGRAINES Y DIABETES, TYPE Y HEART DISEASE/HEART PROBLEMS Y KIDNEY DISEASE Y ALLERGIES/HAYFEVER Y OTHER # 1 Y COPD Y HYPERTENSION Y GERD/NAUSEA Y PULMONARY DISEASE Y GOUT Y BACK / NECK PROBLEMS Y MIGRAINES Y Immunizations Vaccine Type Date Status Note Provider Nam e and Address Organization Details Recorded Time COVID-19, mRNA, LNP-S, PF, 30 mcg/0.3 mL dose 1 completed Not Available [facility] 06/20/2023 13:56:47 COVID-19, mRNA, LNP-S, PF, 30 mcg/0.3 mL dose 1 completed Not Available [facility] 06/20/2023 13:56:47 zoster, unspecified formulation 7 completed Not Available [facility] 06/20/2023 13:56:47 Past Encounters Encounter ID Performer Location Encounter Start Date Encounter Closed Date Diagnosis/Indication Diagnosis SNOMED-CT Code Diagnosis ICD10 Code Diagnosis IMO Codes Diagnosis Note [id number] [facility] [place] [address] [place] [address] 08/27/2020 00:00:00 08/27/2020 10:53:13 [id number] [facility] [place] [address] [place] [address] 10/01/2020 00:00:00 10/01/2020 11:00:53 [id number] [facility] [place] [address] [place] [address] 12/01/2020 00:00:00 12/01/2020 13:49:52 [id number] [facility] [place] [address] [place] [address] 03/26/2021 00:00:00 03/26/2021 13:59:07 [id number] PATRICK Kim [facility] [place] [address] [place] [address] 09/27/2021 00:00:00 09/27/2021 14:58:34 [id number] Mateo up MD [facility] General Surgery [address] [facility], [address] [address] 10/07/2021 00:00:00 10/07/2021 14:00:03 [id number] PATRICK Kim [facility] [place] [address] [place] [address] 03/30/2022 00:00:00 03/30/2022 15:35:01 [id number] [facility] [place] [address] [place] [address] 09/30/2022 09:19:58 09/30/2022 10:27:26 Chronic obstructive pulmonary disease 93448775 J44.9 PFT 09/2020 with obstructio nRatio 42%PBD FEV1 76%.Normal lung volumesDLC O 49%.Plan to repeat this fallTreleg y Ellipta 200, 4 weeks of samples to patient and coupon for one free monthInstr ucted on technique todayConti nue albuterol PRN -discussed indication s for useRefills sent todayDiscu ssed reportable signs and symptoms.O NO on 2 liters WNLRTO in 6 months, PRN for concerns. Dyspnea on exertion 6084 5006 R06.09 Multifacto ral.On repeat 6MWT 10/2020, he required 2 liters with activityHe is compliant and has good benefitEnc ouraged exerciseWe ight lossDiscus sed the risks of hypoxia, including Dependence on supplemental oxygen 0219747884 07 Z99.81 2 liters with sleep and with activityHe has good use and clinical benefitEnc ouraged use in shower Chronic cough 83728235 R 05.3 Multifacto ralEncoura ged daily maintenanc e inhaler Obstructiv e sleep apnea syndrome 61905617 G47.33 Not compliant with PAP therapyHe is uninterest ed in troublesho otingDiscu ssed the risks of uncorrecte d TREVA, including Secondary pulmonary hypertension 86427747 I27.21 Latest echocardio gram with elevated RSVPLikely secondary to pulmonary, cardiac and uncorrecte d TREVA Posterior rhinorrhea 758 56035 R09.82 Continue ipratropiu m nasal spray Body mass index 30+ - obesity 682571507 Z68.35 Discussed weight management .Healthy well balanced meals.Incr ease exercise, ideally 30 minutes most days of the week. Ex-smoker 6872268 Z87.89 1 LDCT 03/2022 with no nodule, mass or enlarged lymph nodesRepea t due 03/2023 [id number] Stephanie Archer, [facility] [address] [address] [place] [address] 04/03/2023 09:51:23 04/03/2023 10:48:41 Chronic obstructive pulmonary disease 15717480 J44.9 PFT 09/2020 with obstructio nRatio 42%PBD FEV1 76%.Normal lung volumesDLC O 49%.He would like to wait to repeat this.Nadege nue Trelegy Ellipta 200 one puff dailyInstr ucted on technique todayConti nue albuterol PRN -discussed indication s for useRefills sent todayDiscu ssed reportable signs and symptoms.O NO on 2 liters WNLAdvised vaccines this fall Dyspnea on exertion 6084 5006 R06.09 Multifacto ral.On repeat 6MWT 10/2020, he required 2 liters with activityI recommend repeatHe is compliant and has good benefitEnc ouraged exerciseWe ight lossDiscus sed the risks of hypoxia, including Dependence on supplemental oxygen 5188509690 07 Z99.81 2 liters with sleep and with activityHe has good use and clinical benefitEnc ouraged use in shower and with all activity Chronic cough 44409331 R 05.3 Multifacto ralEncoura ged daily maintenanc e inhaler Obstructiv e sleep apnea syndrome 08904929 G47.33 Not compliant with PAP therapyHe is uninterest ed in troublesho otingDiscu ssed the risks of uncorrecte d TREVA, including Secondary pulmonary hypertension 22249502 I27.21 Echocardio gram with elevated RSVPLikely secondary to pulmonary, cardiac and uncorrecte d TREVA Posterior rhinorrhea 758 93848 R09.82 Continue ipratropiu m nasal spray Body mass index 30+ - obesity 462682349 Z68.35 Discussed weight management .Healthy well balanced meals.Incr ease exercise, ideally 30 minutes most days of the week. Ex-smoker 0050788 Z87.89 1 LDCT 03/2022 with no nodule, mass or enlarged lymph nodesRepea t due 03/2023, ordered today [id number] Michel Kelley DPM [facility] [address] [place] [address] 10/03/2024 14:51:44 10/24/2024 11:59:54 Plantar fasciitis 502309102 M72.2 78659 right heelperfor med physical therapy at [facility] therapyRx diclofenac Recommend supportive shoe gearfollow -up in 3 weeks Peripheral arterial disease 964610962 I73.9 914688 review testing for possible peripheral arterial disease secondary to smoking [id number] Michel Kelley DPM S_[facility] Podiatry [place] [address] [facility] [address] [place] [address] 10/24/2024 11:12:22 10/28/2024 12:02:25 Peripheral arterial occlusive disease 932789313 I77.9 379447 Discussed arterial ultrasound resultsRec ommend daily exerciseAn d monitor for wounds dailyWear supportive shoe gearFollow -up in 1 year Pain of right heel 34998 41151 981383 M79.671 [id number] plantar fasciitis resolved right heelrecomm end supportive insoles over-the-c ounter power stepsconti nue supportive shoe gearDC diclofenac Recommend continuing stretching to prevent recurrence . Health Concerns Section Related Observation LastModified by Organization Detai ls LastModified Time None Recorded Concern Status LastModified by Organization Details LastModified Time None Recorded Advance Directives Directive None Recorded Payers Insurance Date Sequence Insurance Name Policy Number Policy Gallagher Covered Member ID Gallagher Member ID Guarantor Name 10/28/2024 1 [facility] (MEDICARE REPLACEMENT/A DVANTAGE - PPO) [id number] [employer]ane [id number] [employer]ane 10/03/2024 1 [facility] (MEDICARE REPLACEMENT/A DVANTAGE - HMO) [id number] [employer] D Zhane [id number] [facility] Notes Date Note Type Note Provider Name and Address Organization Details Recorded Time 09/30/2022 text/html Mr Phelan presents today to follow up on COPD/emphysema, TREVA, oxygen dependenceHe has no breathing complaints todayHe has been mostly compliant with Trelegy Ellipta 200 but reports this is expensive and he is trying to use this only every other dayHe denies cough, wheezing, chest pain with use of maintenance inhalerDyspnea is unchanged, only with exertional activity like stairs and carrying objectsHe is using oxygen with most activity with good benefitStill not using this in the showerSleeping with 2 litersHe has been doing well with improved activity tolerance and cough.Rescue MDI use is rareIpratropium nasal spray with moderate improvement. He is using this PRN, more with the weather changesContinues to report mucous in his throat despite mucous relief OTCNo nebulizer useDenies hemoptysis and unintentional weight lossContinues to smoke marijuana but tells me he has cut back to the weekends only.Mane has had no respiratory exacerbation in the last 18 months [facility] [address], [facility] [address], [place], [address], [facility] [employer] 09/30/2022 11:33:44 04/03/2023 text/html Mr Phelan presents today to follow up on COPD/emphysema, TREVA, oxygen dependenceHe has no breathing complaints todayHe has installed a chair lift for his stairs. Tells me that it is a combination of joint pain and dyspnea that make stairs difficultAdmits to partial non-compliance with oxygen, especially when out.Compliant with Trelegy Ellipta 200 dailyHe does not use his rescue inhaler muchHe denies cough, wheezing, chest painSleeping with 2 liters nightlyHe has good use and benefitIpratropium nasal spray with moderate improvement. He is using this PRN, more with the weather changesContinues to report mucous in his throat despite mucous relief OTCHas seen ENTNo nebulizer useDenies hemoptysis and unintentional weight lossContinues to smoke marijuana but tells me he has cut backHa has had no respiratory exacerbation in the last 18 months requiring steroids or antibioticsContinues to be uninterested in PAP treatment, but has an appointment with his dentist as per cardiology PATRICK Kim [address], [facility] [address], [place], [address], [facility] [employer] 04/03/2023 13:42:23 10/03/2024 text/html . Patient is a 74-year-old male who presents the office with complaints of pain to his right foot he denies any injury states when he is resting or weight-bearing he has pain to the heel. Patient states that he has history of smoking for 40 years as well as being a diabetic he also states that he has intermittent claudication as well as rest pain. Patient states that when he is at rest his heel even start hurting he has some move his heel around 2 reduce pain. Patient denies any bruising or wounds to the heel. Patient states his pain ranges from 7 out of 10 he states it is stabbing, burning, aching and sharp in nature. Patient states this has been ongoing since 08/03/2024. Patient denies any other complaints. Michel Kelley DPM [address], [facility] [address], [place], [address], [facility] [employer] [facility] [employer] 10/24/2024 11:48:37 10/24/2024 text/html . Patient is a 74-year-old male who returns for follow-up on right heel pain and follow-up on peripheral are arterial disease. Patient underwent a arterial ultrasound he states that he has no open wounds he denies any cramping while walking he states that he does get some cramping at night but he states if he eats a banana he does not experience any cramping. Patient was found to have monophasic flow of the right ankle arteries and biphasic to the left. Patient states he is no longer having any heel pain. I did advise him to stop utilizing the diclofenac. Patient denies any other complaints. Michel Kelley DPM [address], [facility] [address], [place], [address], [employer] 10/24/2024 11:43:15
--- OUTSIDE RECORDS SUMMARY | 2025-03-27 01:48 | XMS_ITS | Clinical Summary ---
Author Organization [facility] Address [address] [place] [address] Phone Care Team Providers Care Assembly Line Brazer Name Role Phone Unavailable Primary Care Provider Unavailabl e Medications ferrous sulfate 325 (65 Fe) MG tablet Take 1 tablet (325 mg total) by mouth every afternoon 90 tablet 1 4 Active Bexagliflozin (Brenzavvy) 20 MG tablet Take 20 mg by mouth every morning 90 tablet 1 4 Active Canagliflozin (Invokana) 300 MG tablet Take 300 mg by mouth 1 (one) time each day in the morning 90 tablet 1 5 Active colchicine 0.6 MG tablet Take 1 tablet (0.6 mg total) by mouth 1 (one) time each day 30 tablet 3 5 Active Empagliflozin (Jardiance) 25 MG tablet Take 25 mg by mouth 1 (one) time each day in the morning 90 tablet 1 5 Active metFORMIN (GLUCOPHAGE) 500 MG tablet TAKE 1 TABLET IN THE MORNING AND 1 TABLET IN THEEVENING. TAKE WITH MEALS 180 tablet 1 5 Active chlorthalidone 25 MG tablet TAKE 1 TABLET EVERY MORNING 90 tablet 1 5 Active olmesartan (BENICAR) 40 MG tablet TAKE 1 TABLET AT BEDTIME 90 tablet 1 5 Active Dapagliflozin Propanediol (Farxiga) 10 MG tablet Take 10 mg by mouth 1 (one) time each day in the morning 30 tablet 5 5 Active Lidocaine (HM Lidocaine Patch) 4 % patch Apply 4 Applications topically 1 (one) time each day 30 patch 1 Active Encounters Date Type Department Care Team Description 02/25/2025 12:30 PM CDT Office Visit [facility], [facility] [address] [phone] Nick Messer DO Persistent proteinuria (Primary Dx); Stage 3b chronic kidney disease (HCC); Coronary artery disease due to calcified coronary lesion; Chronic bronchitis, not otherwise specified (HCC); Obstructive sleep apnea syndrome; Venous insufficiency; Gastroesophageal reflux disease; Hypertensive chronic kidney disease; Type 2 diabetes mellitus with diabetic chronic kidney disease (HCC); Pure hypercholesterolemi a, not otherwise specified 02/25/2025 Refill [facility], [facility] [address] [phone] Ron, [facility] 02/25/2025 Refill [facility], [facility] [address] [phone] [place], [facility] 02/17/2025 Documentation Only [facility] [address] [place] [address] Nick Messer, 02/13/2025 Documentation Only [facility] [address] [place] [address] Nick Messer, 02/13/2025 Documentation Only [facility], [address] [address] Nick Messer, 02/13/2025 Documentation Only [facility] [address] [place] [address] Nick Messer, 01/20/2025 Refill [facility], [facility] [address] [address] Nick Messer, from Last 3 Months Family History Medical History Relation Comments Hypertension Mother Hypertension Sibling 1 Diabetes Sibling 2 Cancer Sibling 3 Relation Status Comments Father Mother Sibling 1 Sibling 2 Sibling 3 Social History Tobacco Use Types Packs/Day Years Used Date Smoking Tobacco: Former Alcohol Use Standard Drinks/Week Comments Yes 0 (1 standard drink = 0.6 oz pure alcohol) Alcoholic Drinks/day: Occasional social drink Sex and Gender Information Value Date Recorded Sex Assigned at Not on file Legal Sex Male 2:49 PM EDT Gender Identity Not on file Sexual Orientation Not on file Last Filed Vital Signs Vital Sign Reading Time Taken Comments Blood Pressure 120/70 02/25/2025 12:22 PM CDT Pulse 71 02/25/2025 12:22 PM CDT Temperature 36.7 C (98 F) 02/25/2025 12:22 PM CDT Respiratory Rate 18 02/25/2025 12:22 PM CDT Oxygen Saturation 97% 02/25/2025 12:22 PM CDT Inhaled Oxygen Concentration - - Weight 100 kg (221 lb) 02/25/2025 12:22 PM CDT Height 175.3 cm (5' 9) 11/12/2024 12:41 PM CDT Body Mass Index 32.64 11/12/2024 12:41 PM CDT Plan of Treatment Upcoming Encounters Date Type Department Care Team (Late st Contact Info) Description 05/27/2025 1:15 PM PILOT PLANT OPERATOR Office Visit [facility], [facility] [address] [facility] [address] [place] [address] Nick Messer DO [address] [address] Health Maintenance Due Date Last Done Comments Colorectal Cancer Screening: Annual FOBT 1999 Colorectal Cancer Screening: Colonoscopy 1999 Colorectal Cancer Screening: Sigmoidoscopy 1999 Pneumococcal Vaccine: 50+ Years (2 of 2 - PPSV23, PCV20, or PCV21) 05/28/2021 04/02/2021 Diabetes: Hemoglobin A1C 09/02/2022 Diabetes: Ophthalmology Exam 09/02/2022 Diabetes: Pedal Pulse Checked 09/02/2022 Diabetes: Sensory Foot Exam 09/02/2022 Diabetes: Visual Foot Exam 09/02/2022 Influenza Vaccine (#1) 2025 2, 04/02/2021, 04/03/2020, Additional history exists Hepatitis B Vaccine Aged Out No longe r eligible based on patient's age to complete this topic Insurance [employer] MCR Adv HMO ([id number]) Advance Directives Documents on File Type Date Recorded Patient Nitroglycerin Supervisor Expl anation Advance Care Planning 04/09/2021 3:35 PM
--- OUTSIDE RECORDS SUMMARY | 2025-03-27 01:48 | XMS_ITS | Encounter Summary ---
Author Organization [employer] [employer] [facility] Address [address] [place] [address] Phone Care Team Providers Care Pierce And Shave Press Operator Name Role Phone Unavailable Primary Care Provider Unavailabl e Reason for Visit * Reason Onset Date Comments Med Refill 02/06/2024 Encounter Details Date Type Department Care Team (Late st Contact Info) Description 02/06/2024 Refill [facility], [facility] [address] [facility] [address] [place] [address] Leah Velasquez CMA [address] [place] [address] Social History Tobacco Use Types Packs/Day Years Used Date Smoking Tobacco: Former Alcohol Use Standard Drinks/Week Comments Yes 0 (1 standard drink = 0.6 oz pure alcohol) Alcoholic Drinks/day: Occasional social drink Sex and Gender Information Value Date Recorded Sex Assigned at Not on file Legal Sex Male 2:49 PM EDT Gender Identity Not on file Sexual Orientation Not on file documented as of this encounter Plan of Treatment Upcoming Encounters Date Type Department Care Team (Late st Contact Info) Description 05/27/2025 1:15 PM REGULATORY AFFAIRS DIRECTOR Office Visit [facility] [employer] [facility] [address] [facility] [address] [place] [address] Nick Messer DO [address] [place] [address] documented as of this encounter Visit Diagnoses Not on filedocumented in this encounter
--- OUTSIDE RECORDS SUMMARY | 2025-03-27 01:48 | XMS_ITS | Encounter Summary ---
Author Organization [facility] Address [address] [facility] [place] [address] Care Team Providers Care Bond Clerk Name Role Phone Unavailable Primary Care Provider Unavailabl e Encounter Details Date Type Department Care Team (Late st Contact Info) Description 02/14/2023 Lab Requisition [facility] [address] [facility], [place] [phone] Josefina Morales, [facility] [address] [place] [phone] Neoplasm of uncertain behavior of skin Social History Tobacco Use Types Packs/Day Years Used Date Smoking Tobacco: Never Assessed Sex and Gender Information Value Date Recorded Sex Assigned at Not on file Legal Sex Male 11:21 AM CDT Gender Identity Not on file Sexual Orientation Not on file documented as of this encounter Plan of Treatment Not on file documented as of this encounter Visit Diagnoses Diagnosis Neoplasm of uncertain behavior of skin documented in this encounter
--- OUTSIDE RECORDS SUMMARY | 2025-03-27 01:48 | XMS_ITS | Clinical Summary ---
Author Organization [facility] Address [address] [place] [address] Care Team Providers Care Revenue Inspector Name Role Phone Unavailable Primary Care Provider Unavailabl e Source Comments [facility],non-owned Affiliates and Associated Physician Practices is amultiple site organization consisting of ambulatory clinics and hospital sitesin [place], [place], [place] and [place]. This disclosure is being madepursuant to the Care Everywhere program and may not contain all information available regarding this patient. Last updated 18.[facility] Datappraise Allergies Active Allergy Reactions Criticality Noted Date Comments Bupropion Urticaria,Unknown Medium 01/19/2018 Ciprofloxacin Urticaria Medium 06/26/2019 Ketamine Unknown 06/26/2019 Lidocaine Unknown 06/05/2020 Penicillins Rash Medium 09/24/2021 Zolpidem Other High 06/26/2019 Medications * Be aware that medications may not be up to date on this document. Alwaysverify current medications with the patient. Fluticasone-Ume clidin-Vilant (TRELEGY ELLIPTA) 200-62.5-25 MCG/INH AEPB every 24 hours Ac tive aspirin EC (ECOTRIN) 81 MG tablet Active carvedilol (COREG) 12.5 MG tablet 2 Active fluticasone propionate (FLONASE) 50 MCG/ACT nasal spray 2 Active ipratropium (ATROVENT) 0.06 % nasal spray ipratropium bromide 42 mcg (0.06 %) nasal spray Active loratadine (CLARITIN) 10 MG tablet Active losartan-hydroC HLOROthiazide (HYZAAR) 100-25 MG tablet Active omega 3 (FISH OIL) 1200 MG capsule Active omeprazole (PRILOSEC) 20 MG capsule omeprazole 20 mg capsule,delayed release Active rosuvastatin (CRESTOR) 10 MG tablet rosuvastatin 10 mg tablet Active baclofen (LIORESAL) 10 MG tablet Take 10 mg by mouth 3 times daily May cause drowsiness. Active Cholecalciferol (VITAMIN D3 PO) Acti ve Social History Tobacco Use Types Packs/Day Years Used Date Smoking Tobacco: Never Assessed Sex and Gender Information Value Date Recorded Sex Assigned at Not on file Legal Sex Male 11:21 AM CDT Gender Identity Not on file Sexual Orientation Not on file Last Filed Vital Signs Vital Sign Reading Time Taken Comments Blood Pressure 140/79 09/24/2021 9:51 AM CDT Pulse 71 09/24/2021 9:51 AM CDT Temperature 36.6 C (97.8 F) 09/24/2021 9:51 AM CDT Respiratory Rate - - Oxygen Saturation 97% 09/24/2021 9:51 AM CDT Inhaled Oxygen Concentration - - Weight 111.1 kg (245 lb) 09/24/2021 9:51 AM CDT Height 175.3 cm (5' 9) 09/24/2021 9:51 AM CDT Body Mass Index 36.18 09/24/2021 9:51 AM CDT Plan of Treatment Health Maintenance Due Date Last Done Comments COLOGUARD (AGES 45-75) - COL ON CA SCREENING 1950 COLON MONITORING 1950 COLONOSCOPY - COLON CA SCREENING 1950 CT COLONOGRAPHY - COLON CA SCREENING 1950 Colorectal Cancer Screening 1950 FIT - COLON CA SCREENING 1950 FLEX SIG - COLON CA SCREENING 1950 HEPATITIS C SCREENING 01/17/1968 DTAP/TDAP/TD VACCINES (1 - Tdap) 1969 PNEUMOCOCCAL VACCINE 50+ (1 of 1 - PCV) 01/22/2000 ZOSTER VACCINE (1 of 2) 01/22/2000 DEPRESSION SCREENING 05/29/2024 MEDICARE AWV CALENDAR YEAR 2024 Respiratory Syncytial Virus (RSV) Vaccine Pt: or over 60 yrs (1 - 1-dose 75+ series) 2025 COVID-19 VACCINE (3 2024-2 6 season) 2025 08/31/2020, 08/09/2020 INFLUENZA VACCINE (#1) 2025 HEPATITIS B VACCINE Aged Out No longe r eligible based on patient's age to complete this topic HIB VACCINE Aged Out No longer eligi ble based on patient's age to complete this topic HPV VACCINE Aged Out No longer eligi ble based on patient's age to complete this topic MENINGOCOCCAL (Group B) VACCINE SHARED DECISION-MAKING Aged Out No longer eligible based on patient's age to complete this topic MENINGOCOCCAL GROUPS A/C/Y/W VACCINE Aged Out No longer eligible b ased on patient's age to complete this topic Insurance [employer] MANAGED MEDICARE ADV
[2025-03-27 06:27] VITALS: BP 145/67; PULSE 69; RESP 19; TEMP 36.1; O2SAT 92
[2025-03-27] MEDS: LACTATED RINGERS 1,000 ML 150 ML IV CONT (06:42)
--- NOTE | 2025-03-27 07:01 | WPDANESEPPF ---
Anes - Initial Pre Proc Eval Procedure: Operation Date: 03/27/25 07:30 Proposed Procedures p Screening Colonoscopy - Harris Nam MD Date/Time: 03/27/25 07:01 Surgeon: Harris Nam MD Pre Op Diagnosis: screening/+ Cologuard Patient Data Age: 75 Gender: M Height: 1.75 m Weight: 99.4 kg Last Vital Signs Temp 36.1 C L 03/27/25 06:27 Pulse 69 03/27/25 06:27 Resp 19 03/27/25 06:27 BP 145/67 H 03/27/25 06:27 Pulse Ox 92 03/27/25 06:27 O2 Del Method Room Air 03/27/25 06:27 Allergies Allergy/AdvReac Type Severity Reaction Status Date / Time bupropion Allergy Severe Hallucinati Verified 03/27/25 06:23 ng ciprofloxacin Allergy Severe Ulcers Verified 03/27/25 06:23 ketamine Allergy Severe Hypertensio Verified 03/27/25 06:23 n zolpidem Allergy Severe Hives Verified 03/27/25 06:23 Home Medications ?Medication ?Instructions ?Recorded ?Confirmed ?Type albuterol sulfate 90 mcg/actuation 2 puff inhalation PRN shortness of 03/24/25 History aerosol inhaler breath or wheezing aspirin 81 mg capsule 81 mg PO DAILY 03/24/25 03/27/25 History carvedilol 12.5 mg tablet 12.5 mg PO BID 03/24/25 03/27/25 History chlorthalidone 25 mg tablet 25 mg PO DAILY 03/24/25 03/27/25 History cholecalciferol (vitamin D3) 50 50 mcg PO DAILY 03/24/25 03/27/25 History mcg (2,000 unit) tablet (Thera-D) ipratropium bromide 42 mcg (0.06 2 spray intranasal BID allergy 03/24/25 03/27/25 History %) nasal spray symptoms loratadine 10 mg tablet (Claritin) 10 mg PO DAILY 03/24/25 03/27/25 History mecobalamin (vitamin B12) 500 mcg mcg PO DAILY 03/24/25 History chewable tablet metformin 500 mg tablet 500 mg PO BID 03/24/25 03/27/25 History montelukast 10 mg tablet 10 mg PO HS 03/24/25 03/27/25 History olmesartan 40 mg tablet 40 mg PO DAILY 03/24/25 03/27/25 History omeprazole 40 mg capsule,delayed 40 mg PO HS 03/24/25 03/27/25 History release rosuvastatin 20 mg tablet 20 mg PO DAILY 03/24/25 03/27/25 History Laboratory Tests 03/27/25 06:40 POC Capillary Glucose 97 mg/dl (65-105) Patient hx anesthesia problems: none Family hx anesthesia problems: none Results Review: All pre-operative results and documents have been reviewed as part of the pre-operative evaluation. [facility] Past Medical History Medical History (Updated 03/27/25 @ 07:02 by Emeka Overton MD) HTN (hypertension) CAD (coronary artery disease) Obesity COPD (chronic obstructive pulmonary disease) Surgical History Surgical History (Updated 03/27/25 @ 07:02 by Emeka Overton MD) History of coronary artery stent placement Social History Social History Smoking packs per day: 2 Smoking cigarettes per day: 40.0 Years smoked: 50 Smoking pack-years: 100.00 Smoking status: Former smoker Tobacco type: cigarettes Alcohol intake: former Substance use: current Substance use type: marijuana and prescription drug Last use: 03/24/2025 Living arrangements: with family Spiritual care concerns: No Anes - Eval Final PreProcedure Day of Procedure 03/27/25 07:01 Patient weight: obese Heart: regular rate and rhythm Lungs: clear to auscultation Airway: Mallampati scale class II Neurological: alert and oriented Last oral intake: >/= 8 hours ASA classification: III Emergent: no Anesthetic plan: proceed Anesthesia type and monitoring: general GIVS and standard monitoring Results Review: All pre-operative results and documents have been reviewed as part of the pre-operative evaluation. Informed Consent: The patient's anesthetic plan and its attendant risks and benefits were discussed with the patient/family/POA. Questions were solicited and answers provided to the satisfaction of the patient/family/POA.
--- NOTE | 2025-03-27 07:23 | PM.HPGS ---
History of Present Illness History of Present Illness Consent: Risks, benefits, and alternatives have been discussed and questions answered. Patient agrees to proceed with procedure. Chief complaint: screening/+ Cologuard Narrative: Ankush Phelan is a 75 year old male with + cologuard, had colonoscopy 4-5 years ago Review of Systems Review of Systems: All systems reviewed & are unremarkable except as noted in HPI and below PMFSH Past Medical History Medical History (Updated 03/27/25 @ 07:25 by Harris Nam MD) Positive colorectal cancer screening using Cologuard test HTN (hypertension) CAD (coronary artery disease) Obesity COPD (chronic obstructive pulmonary disease) Surgical History Surgical History (Updated 03/27/25 @ 07:02 by Emeka Overton MD) History of coronary artery stent placement Social History Social History Smoking packs per day: 2 Smoking cigarettes per day: 40.0 Years smoked: 50 Smoking pack-years: 100.00 Smoking status: Former smoker Tobacco type: cigarettes Alcohol intake: former Substance use: current Substance use type: marijuana and prescription drug Last use: 03/24/2025 Living arrangements: with family Spiritual care concerns: No Meds Home Medications and Allergies Home Medications ?Medication ?Instructions ?Recorded ?Confirmed ?Type albuterol sulfate 90 mcg/actuation 2 puff inhalation PRN shortness of 03/24/25 History aerosol inhaler breath or wheezing aspirin 81 mg capsule 81 mg PO DAILY 03/24/25 03/27/25 History carvedilol 12.5 mg tablet 12.5 mg PO BID 03/24/25 03/27/25 History chlorthalidone 25 mg tablet 25 mg PO DAILY 03/24/25 03/27/25 History cholecalciferol (vitamin D3) 50 50 mcg PO DAILY 03/24/25 03/27/25 History mcg (2,000 unit) tablet (Thera-D) ipratropium bromide 42 mcg (0.06 2 spray intranasal BID allergy 03/24/25 03/27/25 History %) nasal spray symptoms loratadine 10 mg tablet (Claritin) 10 mg PO DAILY 03/24/25 03/27/25 History mecobalamin (vitamin B12) 500 mcg mcg PO DAILY 03/24/25 History chewable tablet metformin 500 mg tablet 500 mg PO BID 03/24/25 03/27/25 History montelukast 10 mg tablet 10 mg PO HS 03/24/25 03/27/25 History olmesartan 40 mg tablet 40 mg PO DAILY 03/24/25 03/27/25 History omeprazole 40 mg capsule,delayed 40 mg PO HS 03/24/25 03/27/25 History release rosuvastatin 20 mg tablet 20 mg PO DAILY 03/24/25 03/27/25 History Allergies Allergy/AdvReac Type Severity Reaction Status Date / Time bupropion Allergy Severe Hallucinati Verified 03/27/25 06:23 ng ciprofloxacin Allergy Severe Ulcers Verified 03/27/25 06:23 ketamine Allergy Severe Hypertensio Verified 03/27/25 06:23 n zolpidem Allergy Severe Hives Verified 03/27/25 06:23 Vital Signs Vital Signs - 24 hr 03/27/25 06:27 Temperature 97 F L Pulse Rate 69 Respiratory Rate 19 Blood Pressure 145/67 H Pulse Oximetry 92 Oxygen Delivery Room Air Exam Const: General: comfortable and no acute distress HENMT: Face/Nose/Sinus: Normal nares present Eyes: General: appearance normal, both eyes and all related structures Neck: Neck: no JVD Resp: Auscultation: clear to auscultation bilaterally Cardio: Rate: regular rate Rhythm: regular rhythm GI: Inspection: non-distended GI Palp: Yes Soft to palpation Skin: General skin exam: normal color Extrem: General: normal to inspection Psych: Mental Status: mental status grossly normal Assessment and Plan Assessment and plan (1) Positive colorectal cancer screening using Cologuard test: Code(s): R19.5 - Other fecal abnormalities Status: Acute Assessment and Plan: colonoscopy
[2025-03-27 07:39] VITALS: BP 105/53; PULSE 60; RESP 17; O2SAT 96
--- NOTE | 2025-03-27 07:39 | S_PTH ---
PATIENT: Ankush Phelan LOC: [facility]#:[id number] AGE/SX: 75/M ROOM: RE03/27/[address]: Harris Nam MD : 1950 BED: DIS: 03/27/2025 SPEC #: [id number] RECD: 03/27/25 10:11 STATUS: NATALIE REEzio #: [id number] KAMRYN: 03/27/25 07:[address]: Harris Nam DEPT: [facility] Surgical RECD BY: Veda Goode ENTERED: 03/27/25 10:12 SP TYPE: Surgical OTHR DR: Ghanshyam BeckMD Tissues: A - Colon Polypectomy Procedures: Hematoxylin and Eosin Stain Gross and Microscopic Level 4
[2025-03-27 07:49] VITALS: BP 115/54; PULSE 64; RESP 18; O2SAT 96
[2025-03-27 07:59] VITALS: BP 115/59; PULSE 62; RESP 18; O2SAT 96
== END 2025-03-27 08:13 | disposition home or self-care (01) ==
PROVIDERS: PCP Internal Medicine; Visit Provider Internal Medicine Gastroenterology
PROC: 0DJD8ZZ Inspection of Lower Intestinal Tract, Via Natural or Artificial Opening Endoscopic (ICD-10-PCS; CPT 45378; principal; 2025-03-27 07:30)
DX: R19.5 Other fecal abnormalities (principal); K51.40 Inflammatory polyps of colon without complications; K57.30 Diverticulosis of large intestine without perforation or abscess without bleeding; K64.8 Other hemorrhoids; Z79.899 Other long term (current) drug therapy
CPT/HCPCS: 45385; 82948; 88305; J2704; J7120

== ENCOUNTER 2025-05-26 14:06 | Observation (INO) | payer MEDICARE, SELFPAY ==
[2025-05-26] VITALS (15 sets, daily range): BP systolic 133–170; BP diastolic 64–98; PULSE 56–87; RESP 16–25; TEMP 36.4–37.3; O2SAT 92–100; BMI 31.9
--- OUTSIDE RECORDS SUMMARY | 2025-05-26 14:20 | XMS_ITS | Encounter Summary ---
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 Name Role Phone Unavailable Primary Care Provider Unavailabl e Reason for Visit * Reason Onset Date Comments Med Refill 02/06/2024 Encounter Details Date Type Department Care Team (Late st Contact Info) Description 02/06/2024 Refill [place] [facility], [facility] [address] [place] [address] Leah Velasquez CMA [address] [place] [address] Social History Tobacco Use Types [...] st Contact Info) Description 05/27/2025 1:15 PM [employer] Office Visit [place] [employer] [facility] [address] [place] [address] Nick Messer DO [address] [place] [address] documented as of this encounter Visit Diagnoses Not on filedocumented in this encounter
--- OUTSIDE RECORDS SUMMARY | 2025-05-26 14:20 | XMS_ITS | Data Portability ---
Author Organization Marlo BROOKE Address [address] [place] [address] Assessment No assessment recorded. Plan of Treatment Reminders Order Date Submit Date Provider Last Modified By Organization Details Last Modified Time Details Appointments None recorded . Lab HbA1c (hemoglo bin A1c), blood 2023 024 [email or web address] In-Office Order, Internal Use Only DO Not Attach Compendium DO Not Attach Compendium, Do Not Delete/merge, [id number] 4 12:37:13 Referral None recorded . Procedures None recorded . Surgeries None recorded . Imaging None recorded . Medication Orders Zithroma x Z-Son 250 mg tablet 2024 025 [facility] #[id number], [address], [place], [address], 5 11:44:58 fluticas one propiona te 50 mcg/actu ation nasal spray,villarreal spension 2024 025 [facility] #[id number], [address] , [place], [address], 5 11:06:52 dextrome thorphan -guaifen esin 10 mg-100 mg/5 mL oral syrup [address] [facility], [facility], [place], [address], 5 11:06:47 cefdinir 300 mg capsule 2024 025 [facility]/Pharmacy #[id number], [address] , [place], [address], 5 01:06:41 guaifene sin ER 600 mg tablet, extended release 12 hr 2023 024 [facility], [address] [place] [address], [id number], 4 13:38:13 neomycin -polymyx in-hydro terrie 3.5 mg-10,00 0 unit/mL- 1 % ear drops,villarreal sp 2023 024 [facility], [address] [place] [address], [id number], 5 11:45:25 Zithroma x Z-Son 250 mg tablet 2023 024 [facility], [address] [place] [address], [id number], 5 11:44:52 cetirizi ne 10 mg tablet 2023 024 [facility], [address] [place] [address], [id number], 4 13:05:29 Cialis 20 mg tablet 2023 024 [facility], [address] [place] [address], [id number], 4 12:41:33 tadalafi l 20 mg tablet 2023 024 [facility], [address] [place] [address], [id number], 5 17:37:28 Patient TargetsNo targets recorded. Patient Instructions Encounter Date Encounter Id Patient Instructions Last Modified By Organization Details Last Modified Time 02/05/2024 [id number] sleep apnea: car e instructions [email or web address] Not available 02/05/2024 12:50:19 allergies: care instructions [email or web address] Not available 02/05/2024 12:50:19 transient ischem ic attack: care instructions [email or web address] Not available 02/05/2024 12:50:19 learning about t ype 2 diabetes [email or web address] Not available 02/05/2024 12:37:11 type 2 diabetes: care instructions Not available 02/05/2024 12:37:11 05/09/2024 [id number] A healthy lifest yle: care instructions [email or web address] Not available 05/09/2024 13:16:37 Acute Sinusitis: Care Instructions [email or web address] Not available 05/09/2024 13:16:37 07/10/2024 [id number] allergies: care instructions [email or web address] Not available 07/10/2024 11:06:35 cough: care instructions [email or web address] Not available 07/10/2024 11:06:35 chronic sinusiti s: care instructions [email or web address] Not available 07/10/2024 11:06:35 07/24/2024 [id number] learning about fever [email or web address] Not avai lable 07/24/2024 16:17:38 upper respirator y infection (cold): care instructions [email or web address] Not available 07/24/2024 16:17:38 10/07/2024 [id number] medicines to ramona id with kidney disease: care instructions [email or web address] Not available 10/07/2024 12:42:04 back care and preventing injuries: care instructions [email or web address] Not available 10/07/2024 12:42:04 gastroesophageal reflux disease (GERD): care instructions [email or web address] Not available 10/07/2024 12:42:04 chronic obstruct chirag pulmonary disease (COPD): care instructions [email or web address] Not available 10/07/2024 12:42:04 learning about c opd and how to prevent lung infections [email or web address] Not available 10/07/2024 12:42:04 Reason for Referral None Reported. Results Created Date Observation Date Name Description Value Unit Range Abnormal Flag Note LastModifiedBy Organization Detail LastModifiedTime 02/05/20 24 02/05/2024 HbA1c (hemo globi n A1c), blood HbA1c 5.0 Not Available In-Office Order Internal Use Only DO Not Attach Compendium DO Not Attach Compendium, Do Not Delete/merge, [id number] 02/05/2024 12:37:01 07/30/1907/29/2024 Hemog lobin A1c/H emogl [...] Not Available 08/06/2024 03:13:52 07/30/19 25 07/29/2024 [facility] [employer] chirag IRIS-RFID [facility] 1999 panel - Serum or Plasm a anion gap in serum or plasma 7 mmol/ L low: 14mmol /Lhigh : 22mmol /L low Not Available Not Available 08/06/2024 03:13:52 07/30/19 25 07/29/2024 [facility] chirag IRIS-RFID [facility] 1999 panel - Serum or Plasm a glucose [mass/volume ] in serum or plasma 117 mg/dL low: 70mg/d Lhigh: 99mg/d L high Not Available Not Available 08/06/2024 03:13:52 07/30/19 25 07/29/2024 [facility] [employer] chirag IRIS-RFID [facility] 1999 panel - Serum or Plasm a urea nitrogen [mass or moles/volume ] in serum or plasma 19 mg/dL low: 8mg/dL high: 19mg/d L normal Not Available Not Available 08/06/2024 03:13:52 07/30/19 25 07/29/2024 [facility] [employer] chirag IRIS-RFID [facility] 1999 panel - Serum or Plasm a creatinine [mass/volume ] in serum or plasma 1.79 mg/dL low: 0.66mg /dLhig h: 1.25mg /dL high Not Available Not Available 08/06/2024 03:13:52 07/30/19 25 07/29/2024 [facility] [employer] chirag IRIS-RFID [facility] 1999 panel - Serum or Plasm a glomerular filtration rate/1.73 sq M.predicted [volume rate/area] in serum, plasma or blood 37 1 normal Not Available Not Available 07/27 03:13:52 07/30/19 25 07/29/2024 [facility] [employer] chirag IRIS-RFID ic 1999 panel - Serum or Plasm a alkaline phosphatase [enzymatic activity/vol ume] in serum or plasma 77 U/L low: 38U/Lh igh: 126U/L normal Not Available Not Available 08/06/2024 03:13:52 07/30/19 25 07/29/2024 [facility] [employer] chirag IRIS-RFID ic 1999 panel - Serum or Plasm a alanine aminotransfe rase [enzymatic activity/vol ume] in serum or plasma 16 U/L low: 0U/Lhi gh: 50U/L normal Not Available Not Available 08/06/2024 03:13:52 07/30/19 25 07/29/2024 [facility] [employer] chirag IRIS-RFID [facility] 1999 panel - Serum or Plasm a aspartate aminotransfe rase [enzymatic activity/vol ume] in serum or plasma 22 U/L low: 15U/Lh igh: 46U/L normal Not Available Not Available 08/06/2024 03:13:52 07/30/19 25 07/29/2024 [employer] chirag IRIS-RFID [facility] 1999 panel - Serum or Plasm a bilirubin.to safia [mass/volume ] in serum or plasma 0.9 mg/dL low: 0.2mg/ dLhigh : 1.3mg/ dL normal Not Available Not Available 08/06/2024 03:13:52 07/30/19 25 07/29/2024 [facility] [employer] chirag IRIS-RFID [facility] 1999 panel - Serum or Plasm a calcium [mass/volume ] in serum or plasma 9.4 mg/dL low: 8.4mg/ dLhigh : 10.2mg /dL normal Not Available Not Available 08/06/2024 03:13:52 07/30/19 25 07/29/2024 [facility] [employer] IRIS-RFID [facility] 1999 panel - Serum or Plasm a protein [mass/volume ] in serum or plasma 6.8 g/dL low: 6.3g/d Lhigh: 8.2g/d L normal Not Available Not Available 08/06/2024 03:13:52 07/30/19 25 07/29/2024 [employer] chirag IRIS-RFID [facility] 1999 panel - Serum or Plasm a albumin [mass/volume ] in serum or plasma 4 g/dL low: 3g/dLh igh: 4.4g/d L normal Not Available Not Available 08/06/2024 03:13:52 07/30/19 25 07/29/2024 [employer]pr [employer] chirag IRIS-RFID [facility] 2000 panel - Serum or Plasm a [...] gout patie nts: <6.0 Not Available [facility] ([facility]) [address] [place], [address], 08/13/2024 09:17:21 08/13/19 25 08/13/2024 SEDIM ENTAT ION RATE- WESTE RGREN sedimentatio n rate-westerg laquita 30 mm/HR 0-30 Not Available [facility] ([facility]) [address] [place], [address], 08/13/2024 09:17:22 11/05/19 25 11/04/2024 Micro album [...] more view No observ ation record ed. [facility] [address] [place], [address], 08/06/2024 11:17:38 Result Notes None recorded. 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 pain syndrome 1094027 Active Not Available [facility] 4 22:45:26 Coronary arterios clerosis 70912672 Active Not Available [facility] 4 22:45:26 Hyperten sive disorder 49026300 Active Not Available [facility] 4 22:45:25 Hyperlip idemia 33679157 Active Not Available [facility] 4 22:45:26 Gastroes ophageal reflux disease 788819210 Active Not Available [facility] 4 22:45:24 Low back pain 011569746 Active Not Available [facility] 4 22:45:25 Ankle pain 909935699 Active Not Available [facility] 4 22:45:25 Basal cell carcinom a of nose 301141875 Active Not Available [facility] 4 22:45:25 Osteoart hritis of knee 267355970 Active Not Available [facility] 4 22:45:25 Transien t cerebral ischemia 093100896 Active Not Available [facility] 4 22:45:25 Upper respirat ory infectio n 53057644 Active Not Available [facility] 4 22:45:26 Cellulit is of lower limb 741123357 Active Not Available [facility] 4 22:45:25 Dyspnea 081988845 Active 2015 Not Available [facility] 4 22:45:25 Dysphagi a 19252045 Active 2015 Not Available [facility] 4 22:45:25 Impotenc e Active 2015 Not Available [facility] 4 22:45:25 Chronic obstruct chirag pulmonar y disease 83977987 Active 2015 mild ; see PFTs 1 Not Available [facility] 4 22:45:24 Migraine 19130291 Active 2016 Not Available [facility] 4 22:45:25 Sinusiti s 08291545 Active 2016 Not Available [facility] 4 22:45:25 Acute otitis media 5527713 Active 2016 Not Available [facility] 4 22:45:25 Screenin g for malignan t neoplasm of prostate Active 2016 Not Available [facility] 4 22:45:25 Administ ration of viral vaccine Active 2016 Not Available [facility] 4 22:45:25 Tendinit is of wrist 717317653 Active 2016 Not Available [facility] 4 22:45:25 Numbness of finger 357478662 Active 2016 Not Available [facility] 4 22:45:25 Tendinit is of elbow or forearm 49294706107 6 Active 2016 Not Available [facility] 4 22:45:25 Basal cell carcinom a of skin 048721069 Active 2016 Not Available [facility] 4 22:45:25 Pain in upper limb 032390423 Active 2016 Not Available [facility] 4 22:45:24 Pain in left arm 496401137 Active 2016 Not Available [facility] 4 22:45:25 Carpal tunnel syndrome 29796242 Active 2016 Not Available [facility] 4 22:45:26 Administ ration of influenz a vaccine Active 2016 Not Available [facility] 4 22:45:26 Strain of muscle of left shoulder 18244048932 477089 Active 2017 Not Available [facility] 4 22:45:24 Screenin g for malignan t neoplasm of colon Active 2017 Not Available [facility] 4 22:45:25 Allergic rhinitis 24953799 Active 2017 Not Available [facility] 4 22:45:26 Serum creatini ne outside referenc e range 346106775 Active 2017 Not Available [facility] 4 22:45:24 Chronic kidney disease stage 3 025477325 Active 2017 Not Available [facility] 4 22:45:25 Follicul itis 67173076 Active 2017 Not Available [facility] 4 22:45:24 Infectio n of fingerna il of left hand 45867420325 777497 Completed 201711/14/2017 Ankush Nuñez PA-C Attn: Accounting ,[address] [facility], [place], [address] , [place] - [facility] 8 23:19:32 Lacerati on of finger 294389442 Active 2017 Not Available [facility] 4 22:45:25 Removal of suture Active 2017 Not Available [facility] 4 22:45:25 Localize d eruption of skin 606000259 Active 2017 Not Available [facility] 4 22:45:26 Obese 300748936 Active 2018 Not Available [facility] 4 22:45:25 Acute sinusiti s 27246389 Active 2018 Not Available [facility] 4 22:45:24 High hemoglob in A1c level 827287212 Active 2018 Not Available [facility] 4 22:45:25 Anemia 646326556 Active 2018 Not Available [facility] 4 22:45:25 Pilonida l cyst 25997916 Active 2018 Not Available [facility] 4 22:45:25 Depressi ve disorder 78060340 Active 2018 Not Available [facility] 4 22:45:25 Deviated nasal septum 068040282 Active 2019 to the right , see CT 0; repaired July of 2019... Not Available [facility] 4 22:45:24 Lumbosac ral radiculo felix 0653440 Active 2019 Not Available [facility] 4 22:45:25 Vasomoto r rhinitis 2275683 Active 2019 Not Available [facility] 4 22:45:26 Sleep apnea 84592646 Active 2019 moderate ly severe , see sleep study 04/15/20 20 Not Available [facility] 4 22:45:26 Insomnia 828446330 Active 2020 Not Available [facility] 4 22:45:24 Lung cancer screenin g Active 2020 Not Available [facility] 4 22:45:26 Vitamin D below referenc e range 367658553 Active 2020 Not Available [facility] 4 22:45:24 Administ ration of pneumoco ccal vaccine Active 2020 Not Available [facility] 4 22:45:24 Erectile dysfunct ion 193377081 Active 2020 Not Available [facility] 4 22:45:26 Cough 73364243 Active 2021 Not Available [facility] 4 22:45:25 Acute conjunct ivitis 07027408 Active 2021 Not Available [facility] 4 22:45:26 Acute pain of scrotum 658411761 Active 2021 Not Available [facility] 4 22:45:26 Right inguinal hernia 402035448 Active 2021 Not Available [facility] 4 22:45:25 Cyst of epididym is 32734847 Active 2021 Not Available [facility] 4 22:45:25 Tinea capitis 0973011 Active 2021 Not Available [facility] 4 22:45:26 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 16590593991 9106 Active 2021 Not Available [facility] 4 22:45:24 Hernia of anterior abdomina l wall 738139624 Active 2021 right lower quadrant Not Available [facility] 4 22:45:25 Serum vitamin B12 borderli ne low 312146892 Active 2021 Not Available [facility] 4 22:45:25 Pain in scrotum Active 2021 Right Not Available [facility] 4 22:45:24 Type 2 diabetes mellitus 70205038 Active 2021 Not Available [facility] 4 22:45:25 History of polyp of colon 523397931 Active 2022 Not Available [facility] 4 22:45:25 Divertic ular disease 327242467 Active 2022 Not Available [facility] 4 22:45:25 Disorder of tympanic membrane 18226540 Active 2023 Not Available [facility] 4 22:45:24 Disorder of skin 25554001 Active 2023 Not Available [facility] 4 22:45:26 Congesti on of nasal sinus 59089957 Active 2023 Bonnie Beltran MD Attn: Accounting ,[address] [place], [address] , [facility] 4 11:31:15 Fever 250752798 Active 2024 Bonnie Beltran MD Attn: Accounting ,[address] [place], [address] , [facility] 5 16:14:20 Pain of right ankle joint 33248304980 551177 Active 2024 Bonnie Beltran MD Attn: Accounting ,[address] [place], [address] , [facility] 5 16:16:15 Notes:rheumatic fever as a c hild . Had a mesh put in to left scrotum age 8 Some problems listed in Documents: #[id number], #[id number], #[id number], #[id number] could not be added to this patient's chart. Please review these documents and add these problems to the patient's chart manually as needed. Problem Notes None recorded. Procedures Surgical History Date Name Laterality Status Provider Name and Address Organization Details Recorded Time Eye Surgery completed Linda Patel MA [facility] 07/04/2014 16:24:18 Heart Surgery completed Linda Patel MA [facility] 07/04/2014 16:24:18 Hernia Repair completed Linda Patel MA [facility] 07/04/2014 16:24:18 Knee Surgery completed Linda Patel MA [place] - [facility] 07/04/2014 16:24:18 Imaging Results None recorded. Procedure Notes None recorded. Medical Equipment None Reported. Allergies Allergen ID Allergen Name Allergen Category Reaction Reaction Severity Criticality Documentation Date Start Date Code Code System Note Provider Name and Address Organization Details Recorded Time 774955 ketamine medicatio n Not available Not available Not available 06/28/2018 6130 RxNorm SHEILA Velazquez, [place] - [facility] 9 10:26:11 938995 ciproflox acin medicatio n hives moderate Not available 07/24/2018 2551 RxNorm Ankush Nuñez PA-C Attn: Laura tirado,[address] [place], [address] [place] [address] - [facility] 1 11:10:42 017532 Ambien medicatio n other severe Not available 02/22/2019 64769 5 RxNorm Angela Bowen MA null, [place] - [facility] 9 10:41:36 163173 Wellbutri n medicatio n hives Not available Not available 03/24/2025 31141 RxNorm Not Available [facility] - External [employer] - prod 12:47:26 510043 bupropion Not available Not available Not available [facility] 03/24/20252017 33778 RxNorm unrec ogniz ed react ion (text : Urtic aria, code: 28224 001) (from exter nal sourc e) unrec ogniz ed react ion (text : Unkno wn, code: 98507 5006) (from exter nal sourc e) Not Available [facility] - External Data Service - prod 12:51:17 594089 lidocaine medicatio n Not available Not available Not available 03/24/20252020 6387 RxNorm unrec ogniz ed react ion (text : Unkno wn, code: 10204 5006) (from exter nal sourc e) Not Available [facility] - prod 12:51:17 665744 zolpidem medicatio n Not available Not available [facility] 03/24/20252019 35953 RxNorm unrec ogniz ed react ion (text : Other , code: 33386 07) [facility] Not Available [facility] - External Data Service - prod 5 12:51:17 22452 Product containin g penicilli n (product) medicatio n hives Not available Not available 07/04/2014 12201 8001 SNOMED SHEILA Rodrigues, [place] - [facility] 5 16:24:18 49575 Wellbutri n medicatio n hives Not available Not available 07/04/2014 35514 RxNorm SHEILA Rodrigues, [facility] 5 16:24:18 Medications Name Sig Start Date [...] completed Not Available Not Available Not Available Stanton-3 Fish Oil 05/02 completed Not Available Not [...] weight Heart rate Body temperature Oxygen saturation Systolic And Diastolic Provider Name and Address Organization Details Last Updated DateTime 5 174.09 cm 34.6 kg/m2 491139. 84 g 81 /min 99.1 [degF] 96 % 126/81 mm[Hg] Jaymie Huizar MA [place] - [facility] 5 15:30:33 Date Recorded Body height Body mass index (BMI) Body weight Heart rate Oxygen saturation Systolic And Diastolic Provider Name and Address Organization Details Last Updated DateTime 5 174.09 cm 34.6 kg/m2 456080. 84 g 69 /min 96 % 143/75 mm[Hg] Carine Nuñez MA [place] - [facility] 5 11:49:23 Date Recorded Body height Body mass index (BMI) Body weight Heart rate Body temperature Oxygen saturation Systolic And Diastolic Provider Name and Address Organization Details Last Updated DateTime 4 174.09 cm 34.3 kg/m2 343239. 65 g 62 /min 98 [degF] 98 % 134/81 mm[Hg] Jaymie Huizar MA [place] - [facility] 4 12:05:06 Date Recorded Body height Body mass index (BMI) Body weight Oxygen saturation Heart rate Systolic And Diastolic Provider Name and Address Organization Details Last Updated DateTime 4 174.09 cm 35 kg/m2 184830. 9 g 96 % 72 /min 142/86 mm[Hg] Carine Nuñez MA [place] - [facility] 4 13:01:06 Social History Question Answer Notes LastModified by Organizat ion Details LastModified Time Tobacco Smoking Status Former Smoker Not Available [facility] 03/31/2020 03:43:24 Are You Blind Or Do You Have Difficulty Seeing? No [id number] Information not available 03/31/2020 What Is Your Level Of Caffeine Consumption? Moderate [id number] Information not available 03/31/2020 How Much Tobacco Do You Chew? None [id number] Information not available 03/31/2020 In The 14 [...] Do You Have Serious Difficulty Hearing? No [id number] Information not available 03/31/2020 What Type Of Diet Are You Following? REGULAR [id number] Information not available 03/31/2020 Which Illicit Or Recreational Drugs Have You Used? Marijuana [id number] Information not available 03/31/2020 Education 2 Year [...] How Much Tobacco Do You Smoke? No [id number] Information not available 03/31/2020 General Stress Level [...] Have Difficulty Walking Or Climbing Stairs? No [id number] Information not available 03/31/2020 Sex: Male Functional Status Question Answer Note LastModified by Organizat ion Details LastModified Time Do you use any illicit or recreational drugs? Yes nicholas [facility] Information not available 04/02/2021 Do you or have you ever used any other forms of tobacco or nicotine? No Information not available 07/10/2020 What is your level of alcohol consumption? Occasional [id number] Information not available 03/31/2020 Do you or have you ever used smokeless tobacco? Never used smokeless tobacco [id number] Information not available 03/31/2020 Are you currently employed? No Information not available 07/10/2020 Do you have difficulty doing errands alone? No [id number] Information not available 03/31/2020 Are you able to care for yourself independently? 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 No [id number] Information not available 03/31/2020 Do you or have you ever used e-cigarettes or vape? Never used electronic cigarettes [id number] Information not available 03/31/2020 What is your exercise level? Occasional [id number] Information not available 03/31/2020 Mental Status Question Answer Note LastModified by Organizat ion Details LastModified Time Do you feel stressed (tense, restless, nervous, or anxious, or unable to sleep at night)? [id number] needs cpap but not adjusting well. cant nap Information not available 07/10/2020 Do you have difficulty concentrating, remembering or making decisions? No [id number] Information not available 03/31/2020 Family History Relationship Description Onset Age of this Age Resolved Age Notes LastModified by Organization Details LastModified Time Mother Asthma Not available 07/04/2014 16:24:18 Mother Hypertensive disorder Not available 2014 16:24:18 Sister Asthma Not available 07/04/2014 16:24:18 Sister Hypertensive disorder Not available 2014 16:24:18 Medical History Condition Response High Blood Pressure Y COPD Y Diabetes N Anxiety Disorder Y Acid Reflux (GERD) Y Allergies Y Immunizations Vaccine Type Date Status Note Provider Nam e and Address Organization Details Recorded Time COVID-19, mRNA, LNP-S, PF, 100 mcg/0.5mL dose or 50 mcg/0.25mL dose completed Not Available [facility] 07/06/2023 22:45:26 COVID-19, mRNA, LNP-S, PF, 100 mcg/0.5mL dose or 50 mcg/0.25mL dose 1 completed Not Available [facility] [facility] 07/06/2023 22:45:27 COVID-19, mRNA, LNP-S, PF, 100 mcg/0.5mL dose or 50 mcg/0.25mL dose 1 completed Not Available [facility] 07/06/2023 22:45:27 Influenza, split virus, trivalent, preservative 4 completed Kathryn Calderon [place] null, [place] [facility] 05/09/2024 13:23:42 Influenza, split virus, quadrivalent, preservative 7 completed Not Available [facility] 06/15/2019 02:51:00 Influenza, split virus, quadrivalent, preservative 8 completed Not Available [facility] 06/15/2019 02:50:29 Influenza, split virus, quadrivalent, preservative 9 completed Not Available [facility] 06/15/2019 02:51:03 Influenza, split virus, quadrivalent, preservative 0 completed Ankush Nuñez PA-C Attn: Accounting,[address] [place], [address], [place] [facility] 04/03/2020 11:11:25 Influenza, split virus, quadrivalent, preservative 1 completed Angela Bow[place], [place] [facility] 04/02/2021 11:00:26 Pneumococcal conjugate PCV 13 1 completed Angela Bow[place], [place] [facility] 04/02/2021 11:01:35 Influenza, split virus, quadrivalent, preservative 2 completed Anksuh Nuñez PA-C Attn: Accounting[address] [place], [address], [place] [facility] 03/05/2022 10:32:46 Influenza, high-dose, quadrivalent, PF 3 completed Dulce Feliz [place], [place] [facility] 03/21/2023 11:57:13 Past Encounters Encounter ID Performer Location Encounter Start Date Encounter Closed Date Diagnosis/Indication Diagnosis SNOMED-CT Code Diagnosis ICD10 Code Diagnosis IMO Codes Diagnosis Note [id number] [facility] (Adult Med) [address] [place] [address] 35627-325 0 07/04/2014 15:57:37 07/04/2014 16:59:07 Coronary arteriosclerosis 35297298 Hypertensive disorder 13009441 Hyperlipidemia 43376534 Gastroesop hageal reflux disease 318482293 Low back pain 635577157 Greater tr ochanteric pain syndrome 3582654 Ankle pain 031739297 [id number] MD Antoni Isaac (Adult Med) [address] [place] [address] 16221-957 0 07/01/2015 16:02:20 07/01/2015 17:45:58 Hypertensive disorder 72442549 I10 Hyperlipidemia 62009867 E78.5 Gastroesop hageal reflux disease 075387393 K21.9 Coronary arteriosclerosis 93739619 I25.10 Osteoarthr itis of knee 474454587 M17.9 [id number] MD Antoni Isaac (Adult Med) [address] [place] [address] 51999-101 0 08/06/2015 16:16:02 08/06/2015 17:19:58 Hypertensive disorder 83535229 I10 Coronary arteriosclerosis 42021798 I25.10 Gastroesop hageal reflux disease 383247190 K21.9 Hyperlipidemia 38660479 E78.5 Low back pain 262364497 M54.5 Osteoarthr itis of knee 874203770 M17.9 History of operative procedure on knee 390607951 Z98.89 right knee: total knee Cellulitis of lower limb 530547379 L03.892 [id number] [facility] (Adult Med) [address] [place] [address] 12090-669 0 05/06/2016 13:55:03 05/10/2016 10:30:12 Dysphagia 77559878 R13.10 Dyspnea 452942050 R06.00 Upper resp iratory infection 23687349 J06.9 Impotence 048814195 N52. 9 Chronic ob structive pulmonary disease 20088525 J44.9 [id number] [facility] [address] [place] [address] 32860-476 0 07/22/2016 12:04:52 07/22/2016 12:54:18 Chronic obstructive pulmonary disease 91596339 J44.9 Hypertensive disorder 38 599729 I10 Gastroesop hageal reflux disease 151198869 K21.0 Hyperlipidemia 92882362 E78.5 Coronary arteriosclerosis 65153061 I25.10 Migraine 49810289 G43.90 9 [id number] [facility] [address] [place] [address] 77758-756 0 08/19/2016 09:57:38 08/19/2016 11:06:08 Sinusitis 22598417 J32.9 Acute otitis media 47926 03 H66.92 Gastroesop hageal reflux disease 624067405 K21.0 Hypertensive disorder 38 777492 I10 Hyperlipidemia 86376213 E78.5 Greater tr ochanteric pain syndrome 7117561 M70.62 Low back pain 323071310 M54.5 Osteoarthr itis of knee 870420220 M17.0 Screening for malignant neoplasm of prostate 945715249 Z12.5 [id number] [facility] (Adult Med) [address] [place] [address] 10592-316 0 11/07/2016 10:09:00 11/07/2016 17:18:37 Chronic obstructive pulmonary disease 89406487 J44.9 Gastroesop hageal reflux disease 851009994 K21.0 Hyperlipidemia 44454126 E78.5 Hypertensive disorder 38 571661 I10 Low back pain 496027382 M54.5 Osteoarthr itis of knee 318420650 M17.0 Administra tion of viral vaccine 66356610 Z23 [id number] MD Antoni Isaac (Adult Med) [address] [place] [address] 62734-875 0 01/09/2017 10:09:52 01/09/2017 11:00:50 Tendinitis of wrist 559214602 M77.8 right hand 4th and 5th fingers numb.... Numbness of finger 08352 6001 R20.0 right 4th and 5th fingers Gastroesop hageal reflux disease 873986181 K21.0 Tendinitis of elbow or forearm 5916125083 06 M77.8 right Basal cell carcinoma of skin 134918188 C44.91 [id number] Mandeep Calero MD [facility] (Adult Med) [address] [place] [address] 33015-302 0 03/27/2017 10:30:28 03/27/2017 11:26:52 Hypertensive disorder 16579658 I10 Hyperlipidemia 45278509 E78.5 Low back pain 598763010 M54.5 Chronic ob structive pulmonary disease 52374757 J44.9 Administra tion of influenza vaccine 82174693 Z23 Gastroesop hageal reflux disease 118612458 K21.0 Migraine 57505270 G43.90 9 Carpal remy huong syndrome 20460479 G56.03 [id number] Mandeep Calero MD [facility] (Adult Med) [address] [place] [address] 18393-177 0 06/20/2017 09:58:51 06/20/2017 13:45:45 Hyperlipidemia 48875091 E78.5 Screening for malignant neoplasm of prostate 580161359 Z12.5 Strain of muscle of left shoulder 1018456850 1001395 S46.912A Screening for malignant neoplasm of colon 486602071 Z12.11 Allergic rhinitis 339492 04 J30.1 Gastroesop hageal reflux disease 948150032 K21.0 Coronary arteriosclerosis 63544278 I25.10 [id number] [facility] [address] [place] [address] 45285-402 0 07/10/2017 11:59:29 07/10/2017 13:21:14 Strain of muscle of left shoulder 3152856649 0389097 S46.912A Hyperlipidemia 25310441 E78.5 Allergic rhinitis 382074 04 J30.1 Hypertensive disorder 38 110452 I10 [id number] MD Antoni Isaac (Adult Med) [address] [place] [address] 83938-533 0 10/03/2017 09:54:11 10/03/2017 10:53:08 Hyperlipidemia 97679997 E78.5 [id number] MD [facility] (Adult Med) [address] [place] [address] 55712-537 0 11/14/2017 15:57:51 11/15/2017 08:56:15 Acute otitis media 7259296 H66.92 Folliculitis 25625367 L7 3.9 Low back pain 420611899 M54.5 Hyperlipidemia 54326216 E78.5 Infection of fingernail of left hand 3495667583 3890340 L03.012 Laceration of finger 274 750123 S61.218A 4th finger [id number] Mandeep Calero MD [facility] (Adult Med) [address] [place] [address] 31696-156 0 11/21/2017 11:34:08 11/23/2017 14:33:06 Removal of suture 95924914 Z48.02 Laceration of finger 274 774822 S61.218A 4th finger [id number] Mandeep Calero MD [facility] (Adult Med) [address] [place] [address] 88903-138 0 01/03/2018 09:45:26 01/03/2018 10:59:51 Chronic kidney disease stage 3 232789028 N18.3 Allergic rhinitis 433435 04 J30.1 Carpal remy huong syndrome 97868433 G56.03 Chronic ob structive pulmonary disease 84287483 J44.9 Gastroesop hageal reflux disease 072392420 K21.0 Hypertensive disorder 38 130527 I10 Hyperlipidemia 63275407 E78.5 [id number] Mandeep Calero MD [facility] (Adult Med) [address] [place] [address] 32814-132 0 03/27/2018 10:10:42 03/27/2018 12:37:03 Hypertensive disorder 23355860 I10 Hyperlipidemia 51059765 E78.5 Allergic rhinitis 800858 04 J30.1 Low back pain 766189719 M54.5 Migraine 93247166 G43.90 9 Gastroesop hageal reflux disease 721479338 K21.0 Localized eruption of skin 632257411 R21 Screening for malignant neoplasm of colon 021618746 Z12.11 Administra tion of influenza vaccine 46901648 Z23 Chronic ob structive pulmonary disease 56039090 J44.9 Chronic ki dney disease stage 3 403124133 N18.3 [id number] MD Antoni Isaac (Adult Med) [address] [place] [address] 31272-911 0 06/28/2018 09:19:31 06/28/2018 10:52:33 Localized eruption of skin 238681411 R21 Chronic ki dney disease stage 3 185617307 N18.3 Gastroesop hageal reflux disease 767436169 K21.0 Hyperlipidemia 69661221 E78.5 Low back pain 685665214 M54.5 Screening for malignant neoplasm of prostate 890351324 Z12.5 Obese 073546785 E66.9 Allergic rhinitis 461986 04 J30.1 Acute sinusitis 12792614 J01.90 Chronic ob structive pulmonary disease 03029176 J44.9 [id number] MD Antoni Isaac (Adult Med) [address] [place] [address] 86045-152 0 07/24/2018 11:15:00 07/25/2018 09:41:22 Sinusitis 12308821 J32.9 Chronic ob structive pulmonary disease 47835433 J44.9 Obese 207996365 E66.9 High hemog lobin A1c level 830822702 R73.09 Anemia 090923161 D64.9 Chronic ki dney disease stage 3 707267129 N18.3 Allergic rhinitis 690338 04 J30.1 Gastroesop hageal reflux disease 919309633 K21.0 Hyperlipidemia 24489572 E78.5 Low back pain 521775240 M54.5 Hypertensive disorder 38 586619 I10 Greater tr ochanteric pain syndrome 1981476 M70.62 Coronary arteriosclerosis 91703303 I25.10 Osteoarthr itis of knee 505920201 M17.0 Impotence 463461454 N52. 9 [id number] MD Antoni Isaac (Adult Med) [address] [place] [address] 69553-255 0 09/24/2018 10:31:24 09/24/2018 11:16:07 Chronic obstructive pulmonary disease 51734138 J44.9 Localized eruption of skin 710781190 R21 Pilonidal cyst 67494961 L05.91 Gastroesop hageal reflux disease 429521506 K21.0 Osteoarthr itis of knee 664445686 M17.0 Low back pain 837603720 M54.5 Hyperlipidemia 21148510 E78.5 Coronary arteriosclerosis 58315623 I25.10 Hypertensive disorder 38 845591 I10 [id number] Mandeep Calero MD [facility] (Adult Med) [address] [place] [address] 92027-271 0 11/23/2018 11:13:33 11/23/2018 15:41:56 Migraine 37336247 G43.909 Impotence 393533450 N52. 9 High hemog lobin A1c level 976266700 R73.09 Hyperlipidemia 16959623 E78.5 Coronary arteriosclerosis 43791967 I25.10 Hypertensive disorder 38 033791 I10 Low back pain 736713747 M54.5 Osteoarthr itis of knee 723459786 M17.0 Gastroesop hageal reflux disease 209844115 K21.0 Chronic ob structive pulmonary disease 03608602 J44.9 Allergic rhinitis 773318 04 J30.1 Chronic ki dney disease stage 3 673526395 N18.3 [id number] Mandeep Calero MD [facility] (Adult Med) [address] [place] [address] 98166-900 0 02/22/2019 10:20:00 02/25/2019 09:18:31 Depressive disorder 10727503 F33.8 Administra tion of influenza vaccine 34459561 Z23 Obese 805558862 E66.9 Chronic ki dney disease stage 3 955811212 N18.3 Allergic rhinitis 932157 04 J30.1 Chronic ob structive pulmonary disease 18335366 J44.9 Migraine 71299320 G43.90 9 Impotence 292485163 N52. 9 Gastroesop hageal reflux disease 078402922 K21.0 Osteoarthr itis of knee 618886277 M17.0 Hyperlipidemia 50280139 E78.5 Coronary arteriosclerosis 81871543 I25.10 Hypertensive disorder 38 954319 I10 Low back pain 913545006 M54.5 [id number] Mandeep Calero MD [facility] (Adult Med) [address] [place] [address] 49618-106 0 05/24/2019 10:27:41 05/24/2019 12:33:27 Acute sinusitis 95922142 J01.90 Upper resp iratory infection 90169671 J06.9 Allergic rhinitis 822553 04 J30.1 Sinusitis 30774326 J32.9 Anemia 204575665 D64.9 Chronic ki dney disease stage 3 973829960 N18.3 Chronic ob structive pulmonary disease 86899057 J44.9 Coronary arteriosclerosis 04498589 I25.10 Depressive disorder 3548 9007 F33.8 Low back pain 597271966 M54.5 Obese 386814235 E66.9 Osteoarthr itis of knee 241276607 M17.0 [id number] Mandeep Calero MD [facility] (Adult Med) [address] [place] [address] 34859-071 0 08/23/2019 10:09:11 08/23/2019 11:17:14 Chronic kidney disease stage 3 737962418 N18.3 Gastroesop hageal reflux disease 283692250 K21.0 High hemog lobin A1c level 754237662 R73.09 Hyperlipidemia 66177205 E78.5 Hypertensive disorder 38 339487 I10 Obese 816928479 E66.9 Chronic ob structive pulmonary disease 44120870 J44.9 Acute sinusitis 15589980 J01.90 Allergic rhinitis 626153 04 J30.1 Greater tr ochanteric pain syndrome 5375882 M70.62 Osteoarthr itis of knee 406727625 M17.0 Low back pain 373629278 M54.5 Deviated nasal septum 12 5795635 J34.2 [id number] Mandeep Calero MD [facility] (Adult Med) [address] [place] [address] 67804-428 0 09/23/2019 09:52:41 09/23/2019 11:43:10 Acute sinusitis 12398419 J01.90 Allergic rhinitis 187621 04 J30.1 Chronic ki dney disease stage 3 749858465 N18.3 Chronic ob structive pulmonary disease 93893378 J44.9 Coronary arteriosclerosis 91234497 I25.10 Hyperlipidemia 00202438 E78.5 Hypertensive disorder 38 330810 I10 Low back pain 262886378 M54.5 Osteoarthr itis of knee 314579569 M17.0 [id number] Mandeep Calero MD [facility] (Adult Med) [address] [place] [address] 14993-700 0 01/31/2020 08:09:26 01/31/2020 11:06:56 Allergic rhinitis 13575847 J30.1 Chronic ki dney disease stage 3 815063282 N18.3 Chronic ob structive pulmonary disease 85061789 J44.9 Depressive disorder 3548 9007 F33.8 Gastroesop hageal reflux disease 081755477 K21.0 Hyperlipidemia 08073019 E78.5 Low back pain 755702226 M54.5 Obese 185205256 E66.9 Greater tr ochanteric pain syndrome 3326464 M70.62 Localized eruption of skin 931145736 R21 Coronary arteriosclerosis 42931943 I25.10 Carpal remy huong syndrome 26227762 G56.03 [id number] Mandeep Calero MD [facility] (Adult Med) [address] [place] [address] 06997-181 0 04/03/2020 09:44:13 04/03/2020 12:33:17 Impotence 477648106 N52.9 Lumbosacra l radiculopathy 3184027 M54.17 Administra tion of influenza vaccine 94751982 Z23 Low back pain 153511407 M54.5 Migraine 56443000 G43.90 9 Hyperlipidemia 01803753 E78.5 Hypertensive disorder 38 022028 I10 Gastroesop hageal reflux disease 801205102 K21.9 Depressive disorder 3548 9007 F33.8 Chronic ob structive pulmonary disease 63666386 J44.9 Anemia 352464990 D64.9 Vasomotor rhinitis 05910 03 J30.0 [id number] Mandeep Calero MD [facility] (Adult Med) [address] [place] [address] 87427-357 0 07/10/2020 11:46:06 07/10/2020 16:24:06 Lumbosacral radiculopathy 1389257 M54.17 Acute otitis media 99642 03 H66.92 Chronic ob structive pulmonary disease 65488712 J44.9 Insomnia 043942465 G47.0 0 Allergic rhinitis 355362 04 J30.1 Chronic ki dney disease stage 3 088065507 N18.30 Coronary arteriosclerosis 92822526 I25.10 Depressive disorder 3548 9007 F33.8 Gastroesop hageal reflux disease 595281320 K21.9 Hyperlipidemia 00564802 E78.5 Hypertensive disorder 38 354099 I10 Sleep apnea 52244959 G47 .30 [id number] Mandeep Calero MD [facility] (Adult Med) [address] [place] [address] 16755-495 0 10/07/2020 09:08:08 10/07/2020 11:48:14 Allergic rhinitis 08897827 J30.1 Chronic ki dney disease stage 3 674493071 N18.30 Chronic ob structive pulmonary disease 78141378 Z87.891 Gastroesop hageal reflux disease 207005740 K21.9 Hypertensive disorder 38 847304 I10 Insomnia 780722757 G47.0 0 Obese 213271752 E66.9 Osteoarthr itis of knee 592438840 M17.0 Sleep apnea 78338182 G47 .30 Migraine 51088641 G43.90 9 Lumbosacra l radiculopathy 1248599 M54.17 Acute sinusitis 47936691 J01.90 [id number] Mandeep Calero MD [facility] (Adult Med) [address] [place] [address] 08308-269 0 02/19/2021 09:53:37 02/19/2021 12:01:35 Lumbosacral radiculopathy 1438431 M54.17 Chronic ob structive pulmonary disease 04630609 Z87.891 Allergic rhinitis 534067 04 J30.1 Chronic ki dney disease stage 3 406085581 N18.30 Coronary arteriosclerosis 21240331 I25.10 Acute sinusitis 62664277 J01.90 Acute otitis media 08581 03 H66.92 right Impotence 390413202 N52. 9 Migraine 47667973 G43.90 9 Screening for malignant neoplasm of prostate 460859123 Z12.5 Hyperlipidemia 35829107 E78.5 Carpal remy huong syndrome 58196628 G56.03 Vitamin D below reference range 852273366 E55.9 Gastroesop hageal reflux disease 244733733 K21.9 Greater tr ochanteric pain syndrome 0589259 M70.62 High hemog lobin A1c level 994118516 R73.09 Hypertensive disorder 38 734687 I10 Insomnia 315259723 G47.0 0 Low back pain 017343633 M54.5 Obese 621114599 E66.9 Osteoarthr itis of knee 947860345 M17.0 Sleep apnea 18113327 G47 .30 [id number] Mandeep Calero MD [facility] (Adult Med) [address] [place] [address] 62583-077 0 04/02/2021 09:27:53 04/02/2021 11:11:42 Lumbosacral radiculopathy 8086780 M54.17 Chronic ob structive pulmonary disease 96791416 Z87.891 Chronic ki dney disease stage 3 506187896 N18.30 Administra tion of influenza vaccine 06733330 Z23 Administra tion of pneumococcal vaccine 56288950 Z23 Erectile dysfunction 860 698775 F52.21 [id number] Mandeep Calero MD [facility] (Adult Med) [address] [place] [address] 38220-646 0 06/02/2021 09:43:00 06/02/2021 12:55:14 Lumbosacral radiculopathy 4170088 M54.17 Chronic ob structive pulmonary disease 39530583 Z87.891 Coronary arteriosclerosis 71071574 I25.10 Hyperlipidemia 61527525 E78.5 Gastroesop hageal reflux disease 994792268 K21.9 Migraine 11361966 G43.90 9 Allergic rhinitis 617276 04 J30.1 Cough 15505828 R05.9 Basal cell carcinoma of skin 886861663 C44.91 Chronic ki dney disease stage 3 863513917 N18.30 Vitamin D below reference range 648424528 E55.9 Erectile dysfunction 860 290874 F52.21 Hypertensive disorder 38 715220 I10 Insomnia 183691276 G47.0 0 Low back pain 731123431 M54.50 Osteoarthr itis of knee 145316191 M17.0 Sleep apnea 32469975 G47 .30 [id number] Mandeep Calero MD [facility] (Adult Med) [address] [place] [address] 28291-790 0 08/02/2021 15:52:29 08/02/2021 16:58:38 Chronic obstructive pulmonary disease 95614031 Z87.891 Acute conjunctivitis 537 95001 H10.31 Acute pain of scrotum 72 6242511 N50.82 Gastroesop hageal reflux disease 130817810 K21.9 Right inguinal hernia 23 0404015 K40.90 Sleep apnea 33157989 G47 .30 Osteoarthr itis of knee 853816195 M17.0 Low back pain 444253597 M54.50 Insomnia 494939548 G47.0 0 Hypertensive disorder 38 422957 I10 Hyperlipidemia 21669562 E78.5 Greater tr ochanteric pain syndrome 4994859 M70.62 Vitamin D below reference range 160929371 E55.9 Depressive disorder 3548 9007 F33.8 Coronary arteriosclerosis 85390762 I25.10 Chronic ki dney disease stage 3 951401440 N18.30 Allergic rhinitis 239457 04 J30.1 [id number] Mandeep Calero MD [facility] (Adult Med) [address] [place] [address] 66320-188 0 09/09/2021 09:56:28 09/10/2021 09:09:53 Acute conjunctivitis 11477827 H10.31 Chronic ob structive pulmonary disease 69750023 Z87.891 Hyperlipidemia 83662273 E78.5 Hypertensive disorder 38 300954 I10 Lumbosacra l radiculopathy 2395136 M54.17 Allergic rhinitis 532687 04 J30.1 Coronary arteriosclerosis 61681947 I25.10 Acute pain of scrotum 72 8028829 N50.82 Depressive disorder 3548 9007 F33.8 Vitamin D below reference range 835249439 E55.9 Gastroesop hageal reflux disease 532349052 K21.9 Greater tr ochanteric pain syndrome 8862433 M70.62 Insomnia 424453712 G47.0 0 Osteoarthr itis of knee 827834057 M17.0 Right inguinal hernia 23 6429242 K40.90 Sleep apnea 24081803 G47 .30 [id number] [facility] [address] [place] [address] 44604-845 0 11/12/2021 09:51:35 11/16/2021 09:26:21 Tinea capitis 7584298 B35.0 Chronic ob structive pulmonary disease 54204102 Z87.891 Low back pain 248591244 M54.50 Lumbosacra l radiculopathy 0141146 M54.17 Allergic rhinitis 104209 04 J30.1 Chronic ki dney disease stage 3 518937156 N18.30 Vitamin D below reference range 591658075 E55.9 Depressive disorder 3548 9007 F33.8 Gastroesop hageal reflux disease 223893264 K21.9 Hyperlipidemia 32333674 E78.5 Hypertensive disorder 38 377455 I10 Insomnia 136809287 G47.0 0 Osteoarthr itis of knee 917929998 M17.0 Sleep apnea 70954234 G47 .30 Bilateral osteoarthritis of finger of hands 0209363294 26919 M19.041 M19.397 [id number] Mandeep Calero MD [facility] (Adult Med) [address] [place] [address] 99810-519 0 03/02/2022 12:36:33 03/03/2022 08:48:57 Hernia of anterior abdominal wall 838155418 K43.9 Administra tion of influenza vaccine 95683191 Z23 Tinea capitis 0886153 B3 5.0 Chronic ki dney disease stage 3 092418626 N18.30 Screening for malignant neoplasm of prostate 138926223 Z12.5 Chronic ob structive pulmonary disease 32441359 Z87.891 Allergic rhinitis 145318 04 J30.1 High hemog lobin A1c level 387499603 R73.09 Insomnia 812091861 G47.0 0 Obese 950920006 E66.9 Bilateral osteoarthritis of finger of hands 0866085768 13424 M19.041 M19.042 Coronary arteriosclerosis 41069963 I25.10 Cyst of epididymis 84603 002 N50.3 Vitamin D below reference range 889370876 E55.9 Depressive disorder 3548 9007 F33.8 Erectile dysfunction 860 028420 F52.21 Gastroesop hageal reflux disease 970380621 K21.9 Hyperlipidemia 27784379 E78.5 Hypertensive disorder 38 611414 I10 Low back pain 491303406 M54.50 Lumbosacra l radiculopathy 6777141 M54.17 Osteoarthr itis of knee 133278787 M17.0 Right inguinal hernia 23 2083416 K40.90 Serum bettie min B12 borderline low 926155279 R79.89 Sleep apnea 77082785 G47 .30 [id number] MD Antoni Lamb (Adult Med) [address] [place] [address] 58209-415 0 05/02/2022 12:28:16 05/03/2022 16:52:03 Pain in scrotum 72457558 N50.82 Type 2 stalin betes mellitus 17614134 E11.9 Chronic ki dney disease stage 3 981291826 N18.30 [id number] MD Antoni Lamb (Adult Med) [address] [place] [address] 57933-909 0 06/21/2022 09:51:00 06/24/2022 16:22:22 Anemia 834556808 D64.9 Chronic ki dney disease stage 3 253196289 N18.30 History of polyp of colon 258489336 Z86.010 Hypertensive disorder 38 598479 I10 Coronary arteriosclerosis 31340770 I25.10 Migraine 50385508 G43.90 9 Erectile dysfunction 860 641804 F52.21 Low back pain 792347040 M54.50 Hyperlipidemia 45236803 E78.5 [id number] MD Antoni Lamb (Adult Med) [address] [place] [address] 28590-233 0 12/19/2022 10:03:34 12/20/2022 10:11:57 Obesity 811545899 E66.9 Chronic ki dney disease stage 3 160851905 N18.30 F/U with nephrology Coronary arteriosclerosis 88330737 I25.10 Diverticular disease 397 988890 K57.90 Gastroesop hageal reflux disease 188050525 K21.9 Type 2 stalin betes mellitus 17178209 E11.9 History of polyp of colon 553299483 Z86.010 Colonoscop y 2017 [id number] MD Antoni Lamb (Adult Med) [address] [place] [address] 21117-384 0 03/21/2023 10:06:46 03/22/2023 12:54:39 Obesity 886460026 E66.9 Type 2 stalin betes mellitus 63848066 E11.9 Screening for malignant neoplasm of prostate 183995821 Z12.5 Screening for malignant neoplasm of colon 583212874 Z12.11 Refuses at present Obese 044147755 E66.9 History of polyp of colon 228044961 Z86.010 Colonoscop y 2018 Diverticular disease 397 550317 K57.90 Administra tion of influenza vaccine 31151000 Z23 [id number] MD Antoni Lamb (Adult Med) [address] [place] [address] 69121-434 0 07/04/2023 10:18:15 07/13/2023 10:04:46 Obesity 525867662 E66.9 Chronic ki dney disease stage 3 690321765 N18.30 F/U with nephrology Chronic ob structive pulmonary disease 25758569 Z87.891 Diverticular disease 397 035771 K57.90 Hypertensive disorder 38 670714 I10 Type 2 stalin betes mellitus 75225201 E11.9 Migraine 53493814 G43.90 9 Disorder of skin 8167567 5 L98.9 [id number] [facility] [address] [place] [address] 87939-814 0 10/02/2023 10:36:12 10/03/2023 08:09:19 Obesity 797081202 E66.9 Allergic rhinitis 598939 04 J30.9 Chronic ki dney disease stage 3 642033994 N18.30 F/U with nephrology Chronic ob structive pulmonary disease 14251345 Z87.891 F/U pulmonary Diverticular disease 397 004103 K57.90 Dyspnea 296335476 R06.02 Gastroesop hageal reflux disease 923006136 K21.9 Coronary arteriosclerosis 87088082 I25.10 F/U cardiology [id number] MD Antoni Lamb (Adult Med) [address] [place] [id number] [phone] 02/05/2024 11:55:10 02/06/2024 12:01:13 Type 2 diabetes mellitus 83021324 E11.9 Erectile dysfunction 860 061346 F52.21 Sleep apnea 72840267 G47 .30 Transient cerebral ischemia 007035879 G45.9 Vitamin D below reference range 003348522 E55.9 Allergic rhinitis 895782 04 J30.9 [id number] Jessica Kumar MD [facility] (Adult Med) [address] [place] [address] [phone] 05/09/2024 12:30:43 05/10/2024 14:34:53 Acute sinusitis 58578581 J01.90 Productive cough 3768453 5 R05.9 Acute otitis externa 302 81945 H60.509 Obesity 059879949 E66.81 2 BMI 35 [id number] Bonnie Beltran MD [facility] (Adult Med) [address] [place] [address] [phone] 07/10/2024 08:30:21 07/16/2024 13:58:23 Allergic rhinitis 26677981 J30.9 Sinusitis 92828868 J32.9 Acute otitis media 90353 03 H66.92 Cough 20645888 R05.9 [id number] Bonnie Beltran MD [facility] (Adult Med) [address] [place] [address] [phone] 07/24/2024 15:12:13 07/25/2024 12:41:04 Fever 000449467 R50.9 Upper resp iratory infection 79439498 J06.9 Pain of ri ght ankle joint 6670744723 3471830 M25.571 Pt to remain off joint. Xrays if persistent plus acetaminop hen [id number] Bonnie Beltran MD [facility] (Adult Med) [address] [place] [address] [phone] 0 10/07/2024 11:16:11 10/09/2024 16:21:34 Chronic kidney disease stage 3 729194473 N18.30 F/U with nephrology Chronic ob structive pulmonary disease 26725251 Z87.891 F/U pulmonary Coronary arteriosclerosis 94342486 I25.10 F/U cardiology Diverticular disease 397 468519 K57.90 Gastroesop hageal reflux disease 532001204 K21.9 Hypertensive disorder 38 829486 I10 Low back pain 989655216 M54.50 Health Concerns Section Related Observation LastModified by Organization Detai ls LastModified Time None Recorded Concern Status LastModified by Organization Details LastModified Time None Recorded Advance Directives Directive None Recorded Payers Insurance Date Sequence Insurance Name Policy Number Policy Gallagher Covered Member ID Gallagher Member ID Guarantor Name 10/04/2024 1 [employer] - [employer] (MEDICARE REPLACEMENT/A DVANTAGE - HMO) [id number] Edward D Zhane [id number] Edward Zhane 03/21/2023 1 [place] Edward D Zhane [id number] Edward Zhane 03/21/2023 1 [employer] - [facility] Edward Zhane [id number] Edward Zhane 03/21/2023 [place] [facility] Edward D Zhane [id number] Edward Zhane 07/14/2014 1 *SELF PAY* Ed blunt Zhane 03/21/2023 1 [facility] [place] 2[place] ([place]) Edward Zhane [id number] Edward Zhane 03/21/2023 1 [place] Edward D Zhane [id number] Edward Zhane 03/21/2023 2 [facility] Edward Zhane [id number] Edward Zhane 06/13/2024 1 [facility] (MEDICARE REPLACEMENT/A DVANTAGE - HMO) [id number] Edward D Zhane [id number] Edward Zhane Notes Date Note Type Note Provider Name and Address Organization Details Recorded Time 02/05/2024 text/html Here for routine f/u. Has felt good for the past six months. Has runny nose at present. Groin pain has resolved. Left ear hurts off and on Bonnie Beltran MD Attn: Accounting,[address] [facility], [place], [address], [place] [facility] 02/05/2024 12:50:46 05/09/2024 text/html ROS [...] time. KINGSTON SOLANO PA-C Attn: Accounting,[address] [facility], [place], [address], [place] [facility] 05/09/2024 13:20:18 07/10/2024 text/html Telephone visit due to weather precautions. Pt initially needed routine visit but now both he and his have URI with productive cough, nasal drainage. He also has ear pain and was given a rx in Apr that he could not afford. Bonnie Beltran MD Attn: Accounting,[address] [facility], [place], [address], [facility] 07/10/2024 11:07:06 07/24/2024 text/html Here for f/u. Has persistent cough. This is controlled by OTC med( Chlorpheniramine & dextrometorphan). No headache. No generalized body ache. Developed pain in his right ankle since last evening Bonnie Beltran MD Attn: Accounting,[address] [facility], [place], [address], [place] [facility] 07/24/2024 16:19:19 10/07/2024 text/html Here for routine f/u Bonnie Beltran MD Attn: Accounting,[address] [facility], [place], [address], [place] [facility] 10/07/2024 12:43:44
--- OUTSIDE RECORDS SUMMARY | 2025-05-26 14:20 | XMS_ITS | Encounter Summary ---
Author Organization [facility] Address [address] [place] [address] Care Team Providers Care Air Antisubmarine Officer Name Role Phone Unavailable Primary Care Provider Unavailabl e Encounter Details Date Type Department Care Team (Late st Contact Info) Description 02/14/2023 Lab Requisition [facility] [address] [facility] [place] [phone] Josefina Morales, [facility] [address] [place] [phone] Neoplasm of uncertain behavior of skin [...]
--- OUTSIDE RECORDS SUMMARY | 2025-05-26 14:21 | XMS_ITS | Data Portability ---
Author Organization [place] [facility], Main Office Address [address] [place] [address] Care Team Providers Care Palliative Care Physician Name Role Phone LUIS TOWNSEND Primary Care [...] This note is dictated and transcribed by [employer]. Hygiene Coordinator variances may occur. Despite proofreading, typographical errors may occur. Occasional wrong-word or 'fpvpq-v-rhyi' substitutions may have occurred due to the inherent limitations of voice recording. Read the chart carefully and recognize, using context, where substitutions have occurred. Not available 10/03/2024 17:01:09 10/24/2024 10/24/2024 This note is dictated and transcribed by [employer]. Hygiene Coordinator variances may occur. Despite proofreading, typographical errors may occur. Occasional wrong-word or 'hwnpn-h-huqo' substitutions may have occurred due to the [...] [address], [address], [place], [address], 5 15:55:27 US, duplex, arterial, lower extremity, complete 2024 025 [facility] (One Call Scheduling), [address] [place], [address], 5 18:53:56 LDCT, chest, for lung cancer screening 2022 023 [email or web address] [facility] (Radiology), [address] [place], [address], 3 12:43:15 Medication Orders diclofenac sodium 75 mg tablet,gina yed release 2024 025 [facility]/Pharmacy #[id number], [address] [facility], [place], [address], 5 15:56:30 Trelegy Ellipta 200 mcg-62.5 mcg-25 mcg powder for inhalation [address] [place] [address] Pharmacy 1761, [address] [place] [address], [address], 5 16:25:01 albuterol sulfate HFA 90 mcg/actuati on aerosol inhaler 2022 023 [facility], [address] [place], [address], 3 13:39:17 albuterol sulfate 2.5 mg/3 mL (0.083 %) solution for nebulizatio n 2022 023 [facility], [address] [place], [address], 3 13:39:18 Trelegy Ellipta 200 mcg-62.5 mcg-25 mcg powder for inhalation 2022 023 [email or web address] [facility], [address] [facility], [place], [address], 5 16:25:01 Patient TargetsNo targets recorded. Patient Instructions Encounter Date Encounter Id Patient Instructions Last Modified By Organization Details Last Modified Time 10/03/2024 [id number] plantar fasciitis: exercises Not available 10/03/2024 15:55:27 plantar fasciiti s education Not available 10/03/2024 15:55:27 Reason for Referral None Reported. Results Created Date Observation Date Name Description Value Unit Range Abnormal Flag Note LastModifiedBy Organization Detail LastModifiedTime 04/08/20 22 04/08/2022 LDCT, chest , for lung cance r georgese donnell No observ ation record ed. [id number] [facility] Add On Lab Orders [address] [place], [address], 07/27/2022 03:14:00 04/29/20 22 04/25/2022 US, echoc ardio gram, trans thora cic, compl ete, w/ color flow No observ ation record ed. [id number] [facility] [address], [place], [address], 07/27/2022 03:14:00 04/13/20 23 04/11/2023 imagi ng/di agnos tic resul t No observ ation record ed. [email or web address] [facility] [address], [place], [address], 05/09/2023 13:42:17 04/14/20 23 04/13/2023 CT, chest , w/o contr ast No observ ation record ed. [email or web address] [facility] (Radiology) [address] [place], [address], 04/17/2023 15:36:23 04/14/20 23 04/11/2023 US, echoc ardio gram, trans thora cic, compl ete, w/ color flow No observ ation record ed. [email or web address] [facility] [address], [place], [address], 04/18/2023 09:17:51 10/04/19 25 XR, foot, 3 or more view No observ ation record ed. [facility] [place] [address], [place], [address], 10/03/2024 15:55:24 10/15/19 25 10/09/2024 US, duple x, arter ial, lower extre mity, compl ete No observ ation record ed. [facility] (One Call Scheduling) [address] [place], [address], 10/15/2024 09:01:21 Result Notes None recorded. Problems Name Problem SNOMED Code Status Onset Date Resolution Date Notes Provider Name and Address Organization Details Recorded Time Disorder of shoulder 412345380 Active Not Available [facility] 4 13:56:46 Disorder of trunk 038567648 Active Not Available [facility] 4 13:56:47 [employer] py follow-up 739195972 Active Not Available [facility] 4 13:56:47 Knee pain Active Not Available [facility] 4 13:56:47 Lesion of ulnar nerve 632271317 Active Not Available [facility] 4 13:56:47 Osteoarthr itis 109987932 Active Not Available [facility] 4 13:56:47 Pain in limb 73808199 Active Not Available [facility] 4 13:56:47 Chronic obstructiv e pulmonary disease 72605766 Active 2017 Not Available [facility] 4 13:56:47 Body mass index 30+ - obesity 626091140 Active 2017 Not Available [facility] 4 13:56:47 Daytime hypersomni a 2011970317946 2 Active 2017 Not Available [facility] 4 13:56:47 Dyspnea 529438937 Active 2018 Not Available [facility] 4 13:56:47 Cough 13034621 Active 2019 Not Available [facility] 4 13:56:47 Allergic rhinitis 84695031 Active 2019 Not Available [facility] 4 13:56:47 Ex-smoker 5195436 Active 2019 Not Available [facility] 4 13:56:47 Dyspnea on exertion 22601951 Active 2020 Not Available [facility] 4 13:56:47 Posterior rhinorrhea 51355786 Active 2020 Not Available [facility] 4 13:56:47 Obstructiv e sleep apnea syndrome 10568154 Active 2020 Not Available [facility] 4 13:56:47 Chronic recurrent sinusitis 296097239 Active 2020 Not Available [facility] 4 13:56:47 Prediabete s 650305103 Active 2021 Not Available [facility] 4 13:56:47 COVID-19 882365011 Active 2022 Not Available [facility] 4 13:56:47 Chronic cough 67566066 Active 2022 Not Available [facility] 4 13:56:47 Secondary pulmonary hypertensi on 39998493 Active 2022 Not Available [facility] 4 13:56:47 Plantar fasciitis 752286250 Active 2024 Michel Kelley DPM [address], [address], [place], [address] , [facility] 5 15:53:59 Peripheral arterial disease 219615113 Active 2024 Michel Kelley DPM [address], [address], [place], [address] , [facility] [employer] [facility] 5 15:54:12 Peripheral arterial occlusive disease 120146115 Active 2024 Michel Kelley DPM [address] [facility], [facility] [address], [place], [address] , [facility] [employer] [facility] 5 11:41:28 Pain of right heel 4940715311843 105 Active 2024 Michel Kelley DPM [address] [facility], [facility] [address], [place], [address] , [facility] [employer] [facility] 5 11:41:35 Problem Notes None recorded. Procedures Surgical History Date Name Laterality Status Provider Name and Address Organization Details Recorded Time other completed Not Available [facility] 05/2022 02:55:59 nasal sinus endoscopy completed Priti Jama [facility] [employer] [facility] 10/03/2024 16:26:03 Knee Replacement completed Priti Bai [facility] [employer] [facility] 10/03/2024 16:26:10 placement of stent in pulmonary artery completed Priti Jama [facility] [employer] [facility] 10/03/2024 16:26:18 Imaging Results None recorded. Procedure Notes None recorded. Medical Equipment None Reported. Allergies Allergen ID Allergen Name Allergen Category Reaction Reaction Severity Criticality Documentation Date Start Date Code Code System Note Provider Name and Address Organization Details Recorded Time 5440 Wellbutri n medicatio n hives Not available Not available 07/27/2022 26690 RxNorm Not Available [facility] 3 03:13:25 5441 Product containin g penicilli n (product) medicatio n rash Not available Not available 07/27/2022 49550 8001 SNOMED Not Available [facility] 3 03:13:25 5442 lidocaine medicatio n Not available Not available Not available 07/27/2022 6387 RxNorm Not Available [facility] 3 03:13:25 Medications Name Sig Start [...] weight Body temperature Heart rate Oxygen saturation Systolic And Diastolic Provider Name and Address Organization Details Last Updated DateTime 3 175.26 cm 35.1 kg/m2 322432. 98 g 97.7 [degF] 62 /min 93 % 130/70 mm[Hg] Angelique Hermosillo MA [facility] [employer] [facility] 3 09:44:59 Date Recorded Body height Body mass index (BMI) Body weight Heart rate Respiratory rate Oxygen saturation Systolic And Diastolic Provider Name and Address Organization Details Last Updated DateTime 5 175.26 cm 34 kg/m2 003560. 25 g 64 /min 14 /min 98 % 140/82 mm[Hg] Priti Jama [facility] [employer] [facility] 5 15:08:08 Date Recorded Body height Body mass index (BMI) Body weight Body temperature Heart rate Oxygen saturation Systolic And Diastolic Provider Name and Address Organization Details Last Updated DateTime 5 175.26 cm 34 kg/m2 586201. 25 g 98.2 [degF] 67 /min 92 % 169/85 mm[Hg] KAMRON Campos [facility] [employer] [facility] 5 11:17:44 Date Recorded Body mass index (BMI) Body height Oxygen saturation Heart rate Body temperature Body weight Systolic And Diastolic Provider Name and Address Organization Details Last Updated DateTime 2 35.4 kg/m2 175.26 cm 97 % 70 /min 97.8 [degF] 191364. 17 g 130/70 mm[Hg] Not Available [facility] 3 02:57:25 Date Recorded Body weight Heart rate Oxygen saturation Systolic And Diastolic Provider Name and Address Organization Details Last Updated DateTime 04/03/2023 014574.02 g 71 /min 95 % 130/80 mm[Hg] Jessy Martinez RN [facility] [employer] [facility] 04/03/2023 09:58:24 Date Recorded Body height Body temperature Provider N lou and Address Organization Details Last Updated DateTime 04/03/2023 175.26 cm 97.3 [degF] Jessica Thakur MA [facility] [employer] [facility] 04/03/2023 09:53:24 Social History Question Answer Notes LastModified by Organizat ion Details LastModified Time Tobacco Smoking Status Former Smoker Not Available [facility] 07/27/2022 02:42:07 What Is Your Level Of Caffeine Consumption? Occasional Information not available 10/03/2024 How Much Tobacco Do You Chew? None [id number] 1982 Information not available 07/27/2022 In The 14 Days Before Symptom Onset, Have You Had Close Contact With A Laboratory-confir med COVID-19 While That Case Was Ill? No [id number] 4168 Information not available 07/27/2022 In The 14 Days Before Symptom Onset, Have You Had Close Contact With A Person Who Is Under Investigation For COVID-19 While That Person Was Ill? No [id number].[id number] 2078 Information not available 07/27/2022 What Type Of Diet Are You Following? REGULAR MIGRATION.059513 2355 Information not available 07/27/2022 Which Illicit Or Recreational Drugs Have You Used? Marijuanas MIGRATION.723568 9887 Information not available 07/27/2022 What Was The Date Of Your Most Recent Tobacco Screening? 10/03/2024 Information not available 10/03/2024 What Is Your Relationship Status? [id number] 0083 Information not available 07/27/2022 At What Age Did You Start Smoking Tobacco? 16 MIGRATION.681203 9318 Information not available 07/27/2022 Are You Passively Exposed To Smoke? Yes MIGRATION.740027 2757 Information not available 07/27/2022 How Much Tobacco Do You Smoke? 2 PPD MIGRATION.273369 0368 Information not available 07/27/2022 Has Tobacco Cessation Counseling Been Provided? No Information not available 10/03/2024 How Many Years Have You Smoked Tobacco? 45 MIGRATION.062621 1806 Information not available 07/27/2022 Have You Recently Traveled Abroad? No MIGRATION.795203 9324 Information not available 07/27/2022 Do You Have Any Dietary Restrictions? No MIGRATION.770916 4309 Information not available 07/27/2022 Sex: Unknown Functional Status Question Answer Note LastModified by Organizat ion Details LastModified Time Do you use any illicit or recreational drugs? No Information not available 10/03/2024 Do you or have you ever used any other forms of tobacco or nicotine? No Information not available 10/03/2024 What is your level of alcohol consumption? None MIGRATION.[id number] 8845 Information not available 07/27/2022 Do you or have you ever used smokeless tobacco? Never used smokeless tobacco MIGRATION.463848 3304 Information not available 07/27/2022 Do you or have you ever used e-cigarettes or vape? Never used electronic cigarettes MIGRATION.981541 2866 Information not available 07/27/2022 What is your exercise level? Occasional MIGRATION.419650 1150 Information not available 07/27/2022 Mental Status None recorded. Family History Relationship Description Onset Age of this Age Resolved Age Notes LastModified by Organization Details LastModified Time Father Hypertensive disorder [id number] Not available 07/27/2022 02:56:01 Mother Hypertensive disorder MIGRATION.672 [id number] Not available 07/27/2022 02:56:01 Mother Aneurysm MIGRATION.418 [id number] Not available 07/27/2022 02:56:01 Mother Cerebrovascu lar [...] mcg/0.3 mL dose 1 completed Not Available [facility] 06/20/2023 13:56:47 COVID-19, mRNA, LNP-S, PF, 30 mcg/0.3 mL dose 1 completed Not Available [facility] 06/20/2023 13:56:47 zoster, unspecified formulation 7 completed Not Available [facility] 06/20/2023 13:56:47 Past Encounters Encounter ID Performer Location Encounter Start Date Encounter Closed Date Diagnosis/Indication Diagnosis SNOMED-CT Code Diagnosis ICD10 Code Diagnosis IMO Codes Diagnosis Note [id number] [facility] [place] [address] [place] [address] 08/27/2020 00:00:00 08/27/2020 10:53:13 [id number] [facility] [place] [address] [place] [address] 10/01/2020 00:00:00 10/01/2020 11:00:53 [id number] [facility] [place] [address] [place] [address] 12/01/2020 00:00:00 12/01/2020 13:49:52 [id number] [facility] [place] [address] [place] [address] 03/26/2021 00:00:00 03/26/2021 13:59:07 [id number] [facility] [place] [address] [place] [address] 09/27/2021 00:00:00 09/27/2021 14:58:34 [id number] [facility] [address] [facility], [address] [place] [address] 10/07/2021 00:00:00 10/07/2021 14:00:03 [id number] [facility] [place] [address] [place] [address] 03/30/2022 00:00:00 03/30/2022 15:35:01 [id number] PATRICK Kim [facility] [place] [address] [place] [address] 09/30/2022 09:19:58 09/30/2022 10:27:26 Chronic obstructive pulmonary disease 42634769 J44.9 PFT 09/2020 with obstructio nRatio 42%PBD [...] of hypoxia, including Dependence on supplemental oxygen 7286591041 07 Z99.81 2 liters with sleep and with activityHe has good use and clinical benefitEnc ouraged use in shower Chronic cough 34972874 R 05.3 Multifacto ralEncoura ged daily maintenanc e inhaler Obstructiv e sleep apnea syndrome 67150556 G47.33 Not compliant with PAP therapyHe is uninterest ed in troublesho otingDiscu ssed the risks of uncorrecte d TREVA, including Secondary pulmonary hypertension 75733828 I27.21 Latest echocardio gram with elevated RSVPLikely secondary to pulmonary, cardiac and uncorrecte d TREVA Posterior rhinorrhea 758 65546 R09.82 Continue ipratropiu m nasal spray Body mass index 30+ - obesity 624846979 Z68.35 Discussed weight management .Healthy well balanced meals.Incr ease exercise, ideally 30 minutes most days of the week. Ex-smoker 4752078 Z87.89 1 LDCT 03/2022 with no nodule, mass or enlarged lymph nodesRepea t due 03/2023 [id number] Stephanie Archer, BUSINESS AND MARKETING TEACHER-[facility] [place] [address] [place] [address] 04/03/2023 09:51:23 04/03/2023 10:48:41 Chronic obstructive pulmonary disease 86181455 J44.9 PFT 09/2020 with obstructio nRatio 42%PBD [...] of hypoxia, including Dependence on supplemental oxygen 9816188782 07 Z99.81 2 liters with sleep and with activityHe has good use and clinical benefitEnc ouraged use in shower and with all activity Chronic cough 02825195 R 05.3 Multifacto ralEncoura ged daily maintenanc e inhaler Obstructiv e sleep apnea syndrome 47461790 G47.33 Not compliant with PAP therapyHe is uninterest ed in troublesho otingDiscu ssed the risks of uncorrecte d TREVA, including Secondary pulmonary hypertension 13885330 I27.21 Echocardio gram with elevated RSVPLikely secondary to pulmonary, cardiac and uncorrecte d TREVA Posterior rhinorrhea 758 35425 R09.82 Continue ipratropiu m nasal spray Body mass index 30+ - obesity 981591817 Z68.35 Discussed weight management .Healthy well balanced meals.Incr ease exercise, ideally 30 minutes most days of the week. Ex-smoker 0234283 Z87.89 1 LDCT 03/2022 with no nodule, mass or enlarged lymph nodesRepea t due 03/2023, ordered today [id number] Michel Kelley DPM S_[facility] [place] [address] [place] [address] 10/03/2024 14:51:44 10/24/2024 11:59:54 Plantar fasciitis 394776528 M72.2 31612 right heelperfor med physical [facility] diclofenac Recommend supportive shoe gearfollow -up in 3 weeks Peripheral arterial disease 108071933 I73.9 243714 review testing for possible peripheral arterial disease secondary to smoking [id number] Michel Kelley DPM [facility] [place] [address] [facility] [address] [place] [address] 10/24/2024 11:12:22 10/28/2024 12:02:25 Peripheral arterial occlusive disease 548488814 I77.9 337987 Discussed arterial ultrasound resultsRec ommend daily exerciseAn d monitor for wounds dailyWear supportive shoe gearFollow -up in 1 year Pain of right heel 36996 75582 377939 M79.671 66394419 plantar fasciitis resolved right heelrecomm end supportive [...] Gallagher Member ID Guarantor Name 10/28/2024 1 [employer] (MEDICARE REPLACEMENT/A DVANTAGE - PPO) [id number] Ankush Phelan [id number] merlene [employer] 10/03/2024 1 [facility] (MEDICARE REPLACEMENT/A DVANTAGE - HMO) [id number] merlene [employer] [id number] merlene Phelan Notes Date Note Type Note Provider Name [...] respiratory exacerbation in the last 18 months Stephanie Archer, BUSINESS AND MARKETING TEACHER-BC [address] [facility], [facility] [address], [place], [address], [facility] [employer] [facility] 09/30/2022 11:33:44 04/03/2023 text/html Mr Phelan presents [...] appointment with his dentist as per cardiology Stephanie Archer, MATILDE-BC [address], [address], [place], [address], [employer] 04/03/2023 13:42:23 10/03/2024 text/html . Patient is [...] any other complaints. Michel Kelley DPM [address], [address], [place], [address], [employer] 10/24/2024 11:48:37 10/24/2024 text/html . Patient is [...] any other complaints. Michel Kelley DPM [address] [facility] [address], [place], [address], [place] [facility] [place] [facility] 10/24/2024 11:43:15
--- OUTSIDE RECORDS SUMMARY | 2025-05-26 14:21 | XMS_ITS | Clinical Summary ---
Author Organization [facility] Address [address] [facility] [place] [address] Care Team Providers Care Chemist Assistant Name Role Phone Unavailable Primary Care Provider Unavailabl e Source Comments [facility],non-owned Affiliates and Associated Physician Practices is amultiple site organization consisting of ambulatory clinics and hospital sitesin [place], [place], [place] and [place]. This disclosure is being madepursuant to the Care Everywhere program and may not contain all information available regarding this patient. Last updated 18.[facility] [employer] Allergies Active Allergy Reactions Criticality Noted Date [...] - 1-dose 75+ series) 2025 COVID-19 VACCINE (2024-2 6 season) 2025 08/31/2020, 08/09/2020 INFLUENZA VACCINE [...] patient's age to complete this topic Insurance [employer] MEDICARE ADV SELF PAY NO INSURANCE Member Subscriber Plan / Payer (Ef fective for All Dates) Name:Kip Phelan Member ID:Not on file Relation to Subscriber:Not on file Name:KIP PHELAN Subscriber ID:Not on file (Home) Address: [address] [address] Payer ID:Not on file Group ID:Not on file Type:Self Pay Address: [place], [place]
--- OUTSIDE RECORDS SUMMARY | 2025-05-26 14:21 | XMS_ITS | Clinical Summary ---
Author Organization [facility] Address [address] [place] [address] Phone Care Team Providers Care Stave Grader Name Role Phone Unavailable Primary Care Provider [...] Encounters Date Type Department Care Team Description 05/13/2025 Documentation Only [facility], [address] [address] Nick Messer, DO 05/13/2025 Documentation Only [facility], [address] [address] Nick Messer, DO 05/13/2025 Documentation Only [facility], [address] [phone] Nick Messer, DO 05/13/2025 Documentation Only [facility], [address] [phone] Nick Messer, DO 05/13/2025 Documentation Only [facility], [address] [phone] Nick Messer, 02/25/2025 12:30 PM CDT Office Visit [facility], [facility] [address] [address] Nick Messer, Persistent proteinuria (Primary Dx); Stage 3b chronic kidney disease (HCC); Coronary artery disease due to calcified coronary lesion; Chronic bronchitis, not otherwise specified (HCC); Obstructive sleep apnea syndrome; Venous insufficiency; Gastroesophageal reflux disease; Hypertensive chronic kidney disease; Type 2 diabetes mellitus with diabetic chronic kidney disease (HCC); Pure hypercholesterolemi a, not otherwise specified 02/25/2025 Refill [facility], [facility] [address] [facility] [address] [place] [address] Leah Velasquez CMA 02/25/2025 Refill [facility], [facility] [address] [facility] [address] [place] [address] Leah Velasquez CMA from Last 3 Months Family History Medical [...] st Contact Info) Description 05/27/2025 1:15 PM ICT DEVELOPMENT MANAGER Office Visit [facility], [facility] [address] [facility] [address] [place] [phone] Nick Messer DO [address] [address] Health Maintenance Due Date Last [...] this topic Insurance [employer] MCR Adv HMO ([id number]) Advance Directives Documents on File Type Date Recorded Patient Last Sorter Expl anation Advance Care Planning 04/09/2021 3:35 PM
--- NOTE | 2025-05-26 15:36 | ECG_ITS ---
Test Date: 2025-05-26 15:51:49 Measurements Intervals [place] Rate: 63 P: 31 NH: 201 QRS: 18 QRSD: 106 T: 29 QT: 441 QTc: 453 Interpretive Statements SINUS RHYTHM BASELINE ARTIFACT- I, III, AVL, AVF, V2-V5 NORMAL ECG No previous ECG available for comparison Electronically Signed On 05-26-2025 20:58:12 LICENSING DIRECTOR by Adrien Romero D.O.
--- OUTSIDE RECORDS SUMMARY | 2025-05-26 15:42 | XMS_ITS | Encounter Summary ---
Author Organization [employer] [facility] Address [address] [place] [address] Phone Care Team Providers Care Organizational Psychologist Name Role Phone Unavailable Primary Care Provider Unavailabl e Reason for Visit * Reason Onset Date Comments Med Refill 02/06/2024 Encounter Details Date Type Department Care Team (Late st Contact Info) Description 02/06/2024 Refill Carlisle Joppel, [facility] [address] [facility] [address] [place] [address] Leah Velasquze CMA [address] [place] [address] Social History Tobacco Use Types [...] st Contact Info) Description 05/27/2025 1:15 PM TIRE REBUILDER Office Visit Carlisle AudioName [facility] [address] [facility] [address] [place] [address] Nick Messer DO [address] [place] [address] documented as of this encounter Visit Diagnoses Not on filedocumented in this encounter
--- OUTSIDE RECORDS SUMMARY | 2025-05-26 15:42 | XMS_ITS | Encounter Summary ---
Author Organization [facility] Address [address] [place] [address] Care Team Providers Care Maple Products Supervisor Name Role Phone Unavailable Primary Care Provider Unavailabl e Encounter Details Date Type Department Care Team (Late st Contact Info) Description 02/14/2023 Lab Requisition [facility] [address] [facility] [place] [phone] Josefina Morales, [facility] [address] [place] [phone] Neoplasm of uncertain behavior of skin [...]
--- OUTSIDE RECORDS SUMMARY | 2025-05-26 15:42 | XMS_ITS | Clinical Summary ---
Author Organization [facility] Address [address] [place] [address] Phone Care Team Providers Care Tablet Repair Name Role Phone Unavailable Primary Care Provider [...] Department Care Team Description 05/13/2025 Documentation Only [facility], [address] [phone] Nick Messer, DO 05/13/2025 Documentation Only [facility], [address] [address] Nick Messer, DO 05/13/2025 Documentation Only [facility], [address] [phone] Nick Messer, DO 05/13/2025 Documentation Only [facility], [address] [phone] Nick Messer, DO 05/13/2025 Documentation Only [facility], [address] [phone] Nick Messer, 02/25/2025 12:30 PM CDT Office Visit [facility], [facility] [address] [phone] Nick Messer, Persistent proteinuria (Primary Dx); Stage 3b chronic kidney disease (HCC); Coronary artery disease due to calcified coronary lesion; Chronic bronchitis, not otherwise specified (HCC); Obstructive sleep apnea syndrome; Venous insufficiency; Gastroesophageal reflux disease; Hypertensive chronic kidney disease; Type 2 diabetes mellitus with diabetic chronic kidney disease (HCC); Pure hypercholesterolemi a, not otherwise specified 02/25/2025 Refill [facility], [facility] [address] [facility] [address] [place] [phone] Leah Velasquez CMA 02/25/2025 Refill [facility], [facility] [address] [facility] [address] [place] [phone] Leah Velasquez CMA from Last 3 Months [...] st Contact Info) Description 05/27/2025 1:15 PM FELTMAKER Office Visit [facility], [facility] [address] [facility] [address] [place] [phone] Nick Messer DO [address] [phone] Health Maintenance Due Date Last [...] this topic Insurance [employer] MCR Adv HMO ([id number]) Advance Directives Documents on File Type Date Recorded 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
--- OUTSIDE RECORDS SUMMARY | 2025-05-26 15:42 | XMS_ITS | Clinical Summary ---
Author Organization [facility] Address [address] [place] [address] Care Team Providers Care Barback Name Role Phone Unavailable Primary Care Provider Unavailabl e Source Comments [facility],non-owned Affiliates and Associated Physician Practices is amultiple site organization consisting of ambulatory clinics and hospital sitesin [place], [place], [place] and [place]. This disclosure is being madepursuant to the Care Everywhere program and may not contain all information available regarding this patient. Last updated 18.[facility] [employer] Allergies Active Allergy Reactions Criticality Noted Date [...] PHELAN Subscriber ID:Not on file (Home) Address: [address] [place] [phone] Payer ID:Not on file Group ID:Not on file Type:Self Pay Address: [place], [place]
[2025-05-26 16:18] LABS: Hematocrit 22.5 % (42.0-52.0); Immature Granulocyte Percent A 0.5 % (0-0.5); Lymphocytes Absolute Auto 0.86 K/mm3 (0.9-3.2); Mean Corpuscular HGB Conc 27.6 g/dl (32-36); Mean Corpuscular Hemoglobin 21.2 pg (26-34); Mean Corpuscular Volume 76.8 fl (80-100); Nucleated Red Blood Cells Absolute Auto 0.000 K/mm3 (0.0-0.012); Nucleated Red Blood Cells Perc 0.0 % (0.0-0.2); Platelet Count Result 133 k/mm3 (150-375); Red Blood Count 2.93 M/mm3 (4.6-6.20); White Blood Count 7.6 K/mm3 (4.5-10.0)
[2025-05-26 16:28] LABS: Alanine Aminotransferase 15 U/L (6-50); Albumin Level 4.1 g/dL (3.5-5.1); Alkaline Phosphatase 88 U/L (38-126); Anion Gap 9 mmol/L (4-12); Aspartate Amino Transferase 18 U/L (17-59); Bilirubin,Total 0.6 mg/dL (0.2-1.3); Blood Urea Nitrogen 24 mg/dL (9-20); Calcium 9.1 mg/dL (8.4-10.2); Carbon Dioxide 22 mmol/L (22-30); Chloride 107 mmol/L (98-107); Estimated CRCL calculation 36 ml/min; Estimated Glomerular Filt Rate 35; Glucose 105 mg/dL (65-110); Potassium 4.2 mmol/L (3.4-5.0); Sodium 138 mmol/L (137-145); Total Protein 7.0 g/dL (6.3-8.2)
[2025-05-26 16:29] LABS: INR 1.1; Partial Thromboplastin Time 26.0 Seconds (22.3-36.8); Prothrombin Time 14.7 Seconds (11.1-14.7)
[2025-05-26 16:31] LABS: Hemoglobin 6.2 g/dL (14.0-18.0)
[2025-05-26 16:33] LABS: Anisocytosis 1+; Hypochromasia 1+; Microcytosis 1+ (NORMAL)
[2025-05-26 16:34] LABS: Polychromasia Occasional
[2025-05-26 16:35] LABS: Basophilic Stippling 1+; Ovalocytes 1+; Schistocytes None Seen
[2025-05-26 17:18] LABS: Iron 22 ug/dL (49-181)
[2025-05-26 17:29] LABS: Percent Iron Saturation 6 % (20-50)
[2025-05-26 17:55] LABS: Ferritin 4.83 ng/mL (11.1-264)
[2025-05-26] MEDS: TUBING, BLOOD PLUM PUMP TUBING 1 EACH XX ×2 (18:37→21:39)
[2025-05-26] MEDS: SODIUM CHLORIDE 0.9% IV 250 ML 30 ML IV CONT (18:37)
--- NOTE | 2025-05-26 18:59 | ED.GENADULT ---
HPI - General Adult General Chief complaint: Recheck/Abnormal Lab/Rx Stated complaint: Low hemoglobin (6) Time Seen by Provider: 05/26/25 15:21 History of Present Illness HPI narrative: Patient is a 75-year-old male who presents ER with low hemoglobin. He had routine outpatient labs and was found have a hemoglobin of 6. Has history of iron deficiency anemia. Was transfused and received iron infusion in the past. He does not take any oral iron despite it being prescribed. He has no dark black stools. No bright red blood in stools. He is having exertional fatigue. No dizziness or syncope. Related Data Home Medications ?Medication ?Instructions ?Recorded ?Confirmed ?Last Taken ?Type albuterol sulfate 90 mcg/actuation 2 puff inhalation PRN shortness of 03/24/25 03/27/25 History aerosol inhaler breath or wheezing aspirin 81 mg capsule 81 mg PO DAILY 03/24/25 05/26/25 03/26/25 History carvedilol 12.5 mg tablet 12.5 mg PO BID 03/24/25 05/26/25 03/26/25 History chlorthalidone 25 mg tablet 25 mg PO DAILY 03/24/25 05/26/25 03/26/25 History cholecalciferol (vitamin D3) 50 50 mcg PO DAILY 03/24/25 05/26/25 03/26/25 History mcg (2,000 unit) tablet (Thera-D) ipratropium bromide 42 mcg (0.06 2 spray intranasal BID allergy 03/24/25 05/26/25 03/26/25 History %) nasal spray symptoms loratadine 10 mg tablet (Claritin) 10 mg PO DAILY 03/24/25 05/26/25 03/26/25 History mecobalamin (vitamin B12) 500 mcg 500 mcg PO DAILY 03/24/25 05/26/25 Unknown History chewable tablet metformin 500 mg tablet 500 mg PO BID 03/24/25 05/26/25 03/26/25 History montelukast 10 mg tablet 10 mg PO HS 03/24/25 05/26/25 03/26/25 History olmesartan 40 mg tablet 40 mg PO DAILY 03/24/25 05/26/25 03/26/25 History omeprazole 40 mg capsule,delayed 40 mg PO HS 03/24/25 05/26/25 03/26/25 History release rosuvastatin 20 mg tablet 20 mg PO DAILY 03/24/25 05/26/25 03/26/25 History Allergies Allergy/AdvReac Type Severity Reaction Status Date / Time bupropion Allergy Severe Hallucinati Verified 05/26/25 18:58 ng ciprofloxacin Allergy Severe Ulcers Verified 05/26/25 18:58 ketamine Allergy Severe Hypertensio Verified 05/26/25 18:58 n zolpidem Allergy Severe Hives Verified 05/26/25 18:58 Review of Systems Review of Systems: All systems reviewed & are unremarkable except as noted in HPI and below Constitutional: Constitutional: Reports no additional constitutional complaints Cardiovascular: Cardiovascular: Reports no additional cardiovascular complaints Respiratory: Respiratory: Reports no additional respiratory complaints Gastrointestinal: Gastrointestinal: Reports no additional gastrointestinal complaints Musculoskeletal: Musculoskeletal: Reports no additional musculoskeletal complaints Neurologic: Reports system reviewed and no additional complaints, except as documented [facility] Past Medical History Medical History (Updated 05/26/25 @ 21:51 by Oseas Dinero MD) Positive colorectal cancer screening using Cologuard test HTN (hypertension) CAD (coronary artery disease) Obesity COPD (chronic obstructive pulmonary disease) Surgical History Surgical History (Updated 03/27/25 @ 07:02 by Emeka Overton MD) History of coronary artery stent placement Social History Social History Smoking packs per day: 2 Smoking cigarettes per day: 40.0 Years smoked: 50 Smoking pack-years: 100.00 Smoking status: Former smoker Tobacco type: cigarettes Alcohol intake: former Substance use: current Substance use type: marijuana and prescription drug Last use: 03/24/2025 Living arrangements: with family Spiritual care concerns: No Exam Narrative: GENERAL: Well-appearing, well-nourished, and in no acute distress. HEAD: Normocephalic, atraumatic. ENT: Mucous membranes moist. Fell conjunctiva NECK: Supple. CHEST: Clear to auscultation. No respiratory distress. HEART: Regular rate and rhythm. Normal peripheral pulses. ABDOMEN: Soft, nontender, nondistended. EXTREMITIES: Normal range of motion. No edema. SKIN: Warm, dry, pale, no rash. NEURO: Alert and oriented x3. PSYCH: Normal mood and affect. Course Course Emergency Course: Admit to hospitalist service. 2 units of blood transfused. Patient felt to have chronic anemia from iron deficiency and noncompliance. Vital Signs Vital signs: Vital Signs Temperature 97.6 F 05/26/25 14:15 Pulse Rate 85 05/26/25 14:15 Respiratory Rate 18 05/26/25 14:15 Blood Pressure 149/64 H 05/26/25 14:15 Pulse Oximetry 92 05/26/25 14:15 Temperature 98.6 F 05/26/25 21:34 Pulse Rate 70 05/26/25 21:34 Respiratory Rate 20 05/26/25 21:34 Blood Pressure 168/85 H 05/26/25 21:34 Pulse Oximetry 97 05/26/25 21:34 Oxygen Delivery Room Air 05/26/25 16:04 MDM Differential Diagnosis Differential Diagnosis: Iron deficiency anemia, GI bleeding, hematologic cancer, lab error Lab Data MDM Lab Attestation statement: I personally reviewed the patient's lab results. 05/26/25 16:06 05/26/25 16:06 Labs: Lab Results 05/26/25 Range/Units 16:06 WBC 7.6 (4.5-10.0) K/mm3 RBC 2.93 L (4.6-6.20) M/mm3 Hgb 6.2 L* (14.0-18.0) g/dL Hct 22.5 L (42.0-52.0) % MCV 76.8 L (80-100) fl MCH 21.2 L (26-34) pg MCHC 27.6 L (32-36) g/dl RDW 15.9 H (11.5-14.5) % Plt Count 133 L (150-375) k/mm3 MPV 9.6 (7.4-10.4) fl Immature Gran % (Auto) 0.5 (0-0.5) % Neut % (Auto) 75.1 H (45.5-73.1) % Lymph % (Auto) 11.3 L (18.3-44.2) % Tripp % (Auto) 9.2 H (2.6-8.5) % Eos % (Auto) 3.5 (0-4.4) % Baso % (Auto) 0.4 (0.2-1.2) % Lymph # (Auto) 0.86 L (0.9-3.2) K/mm3 Tripp # (Auto) 0.7 H (0.1-0.6) K/mm3 Eos # (Auto) 0.3 (0-0.3) K/mm3 Baso # (Auto) 0.0 (0.0-0.1) K/mm3 Abs Immat Gran (auto) 0.04 H (0.00-0.031) K/mm3 Absolute Neuts (auto) 5.7 (1.3-6.7) K/mm3 Absolute Nucleated RBC 0.000 (0.0-0.012) K/mm3 Band Neutrophils % Not Reportable Nucleated RBC % 0.0 (0.0-0.2) % Platelet Estimate Slightly decreased (Adequate) Polychromasia Occasional Hypochromasia 1+ Basophilic Stippling 1+ Anisocytosis 1+ Microcytosis 1+ (NORMAL) Ovalocytes 1+ Schistocytes None seen PT 14.7 (11.1-14.7) Seconds INR 1.1 APTT 26.0 (22.3-36.8) Seconds Sodium 138 (137-145) mmol/L Potassium 4.2 (3.4-5.0) mmol/L Chloride 107 (98-107) mmol/L Carbon Dioxide 22 (22-30) mmol/L Anion Gap 9 (4-12) mmol/L BUN 24 H (9-20) mg/dL Creatinine 1.88 H (0.7-1.3) mg/dL Estim Creat Clear Calc 36 ml/min Estimated GFR 35 L (59 - ) Glucose 105 (65-110) mg/dL Calcium 9.1 (8.4-10.2) mg/dL Iron 22 L (49-181) ug/dL TIBC 393 (265-497) ug/dL % Saturation 6 L (20-50) % Ferritin 4.83 L (11.1-264) ng/mL Total Bilirubin 0.6 (0.2-1.3) mg/dL AST 18 (17-59) U/L ALT 15 (6-50) U/L Alkaline Phosphatase 88 (38-126) U/L Total Protein 7.0 (6.3-8.2) g/dL Albumin 4.1 (3.5-5.1) g/dL Vitamin B12 901.0 (239-931) pg/mL Folate 11.3 (2.76->20) ng/mL TSH (Reflex) 6.410 H (0.465-4.68) uIU/mL Free T4 Pending Blood Type B Positive Antibody Screen Negative Crossmatch See Detail ECG Data EKG #1: ECG completion date: 05/26/25 ECG completion time: 15:51 normal rate (63), sinus rhythm, non-specific ST changes, normal QRS and normal QT Discharge Plan Discharge Clinical Impression: Anemia Patient Disposition: Still a Patient Condition: Stable
[2025-05-26 19:38] LABS: Vitamin B12 901.0 pg/mL (239-931)
--- NOTE | 2025-05-26 21:28 | WPCEDHO ---
ED Hand Off Checklist All vitals saved: Yes IV Site documented: Yes All med administrations documented: Yes Triage Note Triage Note Patient sent in by PMD office for 05/26/25 16:04 abnormal lab results-Hemoglobin of 6. Blood work done 2 weeks ago . Allergies bupropion Allergy (Severe, Verified 05/26/25 18:58) Hallucinating ciprofloxacin Allergy (Severe, Verified 05/26/25 18:58) Ulcers ketamine Allergy (Severe, Verified 05/26/25 18:58) Hypertension zolpidem Allergy (Severe, Verified 05/26/25 18:58) Hives Active Medications including assessments/comments Sodium Chloride (Normal Saline Iv) 250 mls @ 30 mls/hr IV CONT .[id number] STA Stop: 05/27/25 00:59 Last Admin: 05/26/25 18:37 Dose: 30 mls/hr Documented By: SHIKHA Infusion/Titration Document 05/26/25 18:37 SHIKHA (Rec: 05/26/25 18:37 SHIKHA [id number]) Intake IV Site Peripheral Access Right Antecubital Container Volume 250 Waste Amount 0 Dosing Infusion Rate 30 Cumulative Dose Not Applicable Increase/Decrease Started Elapsed Time Elapsed Time ( 0m minutes) Administered/Completed Medications Discontinued Medications IV Miscellaneous Supplies (Tubing, Blood [place] Pump Tubing) Confirm Administered Dose 1 each XX .STK-MED ONE Stop: 05/26/25 18:25 Last Admin: 05/26/25 18:37 Dose: 1 each Documented By: SHIKHA Interventions/Assessments General Assessment Start: 05/26/25 14:07 Freq: Status: Active Protocol: Document 05/26/25 16:10 SHIKHA (Rec: 05/26/25 16:11 SHIKHA [id number]) GA Neurological Assessment Neurological Yes Assessment WNL Level of Alert Consciousness Arousable to Verbal Orientation Oriented to Person,Oriented to Place,Oriented to Time Behavior Appropriate,Cooperative Patient Able to Comprehend Comprehension Memory Description Intact Ability to Maintain Normal Balance Facial Symmetry Symmetrical Speech Pattern Clear GA HEENT Assessment HEENT Assessment WNL Yes Head Symptoms None Neck Symptoms None Neck Movement No Limitations Mouth Symptoms/ None/Normal Appearance Lip Description Normal for Patient Teeth Description Intact Orthodontic/Dental None Assistive Devices Tongue Description Normal Throat Symptoms/ None/Normal Appearance GA Cardiovascular Assessment Cardiovascular Yes Assessment WNL GA Respiratory Assessment Symptoms None Cough Description None Sputum Amount None Oxygen Delivery Room Air Method Pulse Oximetry (90- 96 100) GA Gastrointestinal Assessment Gastrointestinal Yes Assessment WNL Pattern Normal GA Genitourinary Assessment Genitourinary WNL Parameters GA Reproductive Assessment Reproductive Yes Assessment WNL IV / Saline Lock, Insert Start: 05/26/25 14:07 Freq: Status: Active Protocol: Document 05/26/25 16:05 AZG (Rec: 05/26/25 16:06 AZG [id number]) IV Assessment Peripheral Access Right Antecubital IV Catheter Access Initiated IV Insertion Date 05/26/25 IV Insertion Time 16:05 Catheter Gauge 18 IV Site Assessment WNL IV Care and WNL Maintenance Last Vital Signs Temperature 98.6 F 05/26/25 21:26 Pulse Rate 67 05/26/25 21:26 Respiratory Rate 18 05/26/25 21:26 Pulse Oximetry 97 05/26/25 21:26 Blood Pressure 170/88 H 05/26/25 21:26 Blood Pressure Mean 115 05/26/25 21:26 Blood Pressure Position Supine 05/26/25 21:26 Oxygen Delivery Room Air 05/26/25 16:04 Weight 102.3 kg 05/26/25 16:04 Last Result - Abnormals Only RBC 2.93 M/mm3 (4.6-6.20) L 05/26/25 16:06 Hgb 6.2 g/dL (14.0-18.0) L* 05/26/25 16:06 Hct 22.5 % (42.0-52.0) L 05/26/25 16:06 MCV 76.8 fl (80-100) L 05/26/25 16:06 MCH 21.2 pg (26-34) L 05/26/25 16:06 MCHC 27.6 g/dl (32-36) L 05/26/25 16:06 RDW 15.9 % (11.5-14.5) H 05/26/25 16:06 Plt Count 133 k/mm3 (150-375) L 05/26/25 16:06 Neut % (Auto) 75.1 % (45.5-73.1) H 05/26/25 16:06 Lymph % (Auto) 11.3 % (18.3-44.2) L 05/26/25 16:06 Coleman % (Auto) 9.2 % (2.6-8.5) H 05/26/25 16:06 Lymph # (Auto) 0.86 K/mm3 (0.9-3.2) L 05/26/25 16:06 Coleman # (Auto) 0.7 K/mm3 (0.1-0.6) H 05/26/25 16:06 Abs Immat Gran (auto) 0.04 K/mm3 (0.00-0.031) H 05/26/25 16:06 BUN 24 mg/dL (9-20) H 05/26/25 16:06 Creatinine 1.88 mg/dL (0.7-1.3) H 05/26/25 16:06 Estimated GFR 35 (59-) L 05/26/25 16:06 Iron 22 ug/dL (49-181) L 05/26/25 16:06 % Saturation 6 % (20-50) L 05/26/25 16:06 Ferritin 4.83 ng/mL (11.1-264) L 05/26/25 16:06 TSH (Reflex) 6.410 uIU/mL (0.465-4.68) H 05/26/25 16:06 Crossmatch See Detail 05/26/25 16:06 Most Recent Suicide Severity Rating Suicide Severity Rating NO RISK INDICATED 05/26/25 16:04
--- NOTE | 2025-05-26 22:35 | PM.IMHP2 ---
H&P: HPI History of Present Illness Date/Time: 05/26/25 22:35 Chief Complaint: Low hemoglobin Narrative: This is a 75-year-old male patient who has a history of COPD , hypertension, and iron deficiency anemia. The patient has had iron infusions in the past. The patient had routine outpatient labs and found that his hemoglobin was 6. The patient denied feeling short of breath. However he tells me that he it endorses dizziness. He stated that the dizziness would come and go. He has dizziness when just sitting still. He had known history of syncope. He took H is 6.2 and 22.5. BUN is 24 and creatinine is 1.88. GFR is 35. No previous labs for comparison. Iron was 22. Saturation 6 and ferritin 4.83. TSH 6.41 is 0 and free T is pending. The patient denies any hematemesis are blood in his stool. The patient tells me that he did fail a Cologuard and recently had a colonoscopy on 03/27/2025. With removal of benign polyps. The patient was typed and cross-matched in the emergency room and received his 1st unit in the ER and the 2nd unit was given on the medical floor. The patient was started on IV fluid in the emergency room. The patient is only on an aspirin and is not on any anticoagulation. The patient is being admitted to observation status on the date of service of 05/26/2025. Review of Systems Constitutional: Constitutional: Reports as per HPI and Reports no additional constitutional complaints Eyes: Eyes: Reports as per HPI and Reports no additional eye complaints ENT: Reports no additional ear, nose, mouth, and throat complaints and Reports Normal hearing present Cardiovascular: Cardiovascular: Reports no additional cardiovascular complaints Respiratory: Respiratory: Reports as per HPI and Reports no additional respiratory complaints Gastrointestinal: Gastrointestinal: Reports as per HPI and Reports no additional gastrointestinal complaints Musculoskeletal: Musculoskeletal: Reports no additional musculoskeletal complaints Integumentary/Breasts: Skin/Breast: Reports system reviewed and no additional complaints, except as docu Neurologic: Reports no additional neurologic complaints and Reports Normal hearing present Psychiatric: Psychiatric: Reports no additional psychiatric complaints and Reports as per HPI Hematologic/Lymphatic: Hematologic/Lymphatic: Reports no additional hematologic/lymphatic complaints Allergic/Immunologic: Allergic/Immunologic: Reports no additional allergic/immunologic complaints [facility] Past Medical History Medical History (Updated 05/26/25 @ 23:55 by Milana Garcia APRN) Acute renal failure Iron deficiency anemia Chronic GERD DM2 (diabetes mellitus, type 2) Hyperlipidemia Positive colorectal cancer screening using Cologuard test HTN (hypertension) CAD (coronary artery disease) Obesity COPD (chronic obstructive pulmonary disease) Surgical History Surgical History (Updated 05/26/25 @ 23:36 by Milana Garcia APRN) Hx of total knee arthroplasty Right knee H/O cataract extraction Bilaterally H/O colonoscopy with polypectomy H/O eye surgery Left eye removal foreign body. History of coronary artery stent placement Social History Social History (Updated 05/26/25 @ 23:37 by Milana Garcia APRN) Social History: The patient lives at home with his . He has 3 children. 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 Code status: Full code Smoking packs per day: 2 Smoking cigarettes per day: 40.0 Years smoked: 50 Smoking pack-years: 100.00 Smoking status: Former smoker Tobacco type: cigarettes Second hand tobacco smoke exposure: No Alcohol intake: former Substance use: current Substance use type: marijuana and prescription drug Last use: 03/24/2025 Lack of Transportation: No Lack of Food: Never True Current Housing: I Have Housing Concerned About Future Housing: No Difficulty Paying Gas/Electric Bills: No Difficulty Paying for Meds: No Currently Unemployed: No Education: Trade/Vocational Certificate Difficulty w/ Childcare or Family Care: No Living arrangements: with family Spiritual care concerns: No Meds Home Medications and Allergies Home Medications ?Medication ?Instructions ?Recorded ?Confirmed ?Type albuterol sulfate 90 mcg/actuation 2 puff inhalation PRN shortness of 03/24/25 05/26/25 History aerosol inhaler breath or wheezing aspirin 81 mg capsule 81 mg PO DAILY 03/24/25 05/26/25 History carvedilol 12.5 mg tablet 12.5 mg PO BID 03/24/25 05/26/25 History chlorthalidone 25 mg tablet 25 mg PO DAILY 03/24/25 05/26/25 History cholecalciferol (vitamin D3) 50 50 mcg PO DAILY 03/24/25 05/26/25 History mcg (2,000 unit) tablet (Thera-D) ipratropium bromide 42 mcg (0.06 2 spray intranasal BID allergy 03/24/25 05/26/25 History %) nasal spray symptoms loratadine 10 mg tablet (Claritin) 10 mg PO DAILY 03/24/25 05/26/25 History mecobalamin (vitamin B12) 500 mcg 500 mcg PO DAILY 03/24/25 05/26/25 History chewable tablet metformin 500 mg tablet 500 mg PO BID 03/24/25 05/26/25 History montelukast 10 mg tablet 10 mg PO HS 03/24/25 05/26/25 History olmesartan 40 mg tablet 40 mg PO DAILY 03/24/25 05/26/25 History omeprazole 40 mg capsule,delayed 40 mg PO HS 03/24/25 05/26/25 History release rosuvastatin 20 mg tablet 20 mg PO DAILY 03/24/25 05/26/25 History fluticasone 100 mcg-salmeterol 50 1 inh inhalation BID 05/26/25 05/26/25 History mcg/dose blistr powdr for inhalation (Wixela Inhub) fluticasone propionate 50 1 spray intranasal BID 05/26/25 05/26/25 History mcg/actuation nasal spray,suspension sumatriptan succinate 100 mg tablet 100 mg PO PRN 05/26/25 05/26/25 History Allergies Allergy/AdvReac Type Severity Reaction Status Date / Time bupropion Allergy Severe Hallucinati Verified 05/26/25 22:48 ng ciprofloxacin Allergy Severe Ulcers Verified 05/26/25 22:48 ketamine Allergy Severe Hypertensio Verified 05/26/25 22:48 n zolpidem Allergy Severe Hives Verified 05/26/25 22:48 Vital Signs Vital Signs - 24 hr 05/26/25 14:15 05/26/25 16:04 05/26/25 16:10 Temperature 97.6 F Pulse Rate 85 65 Respiratory Rate 18 16 Blood Pressure 149/64 H 139/75 Pulse Oximetry 92 95 96 Oxygen Delivery Room Air 05/26/25 17:17 05/26/25 18:44 05/26/25 18:55 Temperature 98.6 F Pulse Rate 67 60 64 Respiratory Rate 17 18 16 Blood Pressure 135/88 140/69 148/90 H Pulse Oximetry 97 97 96 Oxygen Delivery 05/26/25 19:01 05/26/25 20:01 05/26/25 21:15 Temperature 97.9 F 99.2 F 99.0 F Pulse Rate 56 L 70 87 Respiratory Rate 16 20 25 H Blood Pressure 141/65 H 149/84 H 150/82 H Pulse Oximetry 97 100 100 Oxygen Delivery 05/26/25 21:26 05/26/25 21:34 05/26/25 21:51 Temperature 98.6 F 98.6 F 98.5 F Pulse Rate 67 70 67 Respiratory Rate 18 20 21 H Blood Pressure 170/88 H 168/85 H 163/98 H Pulse Oximetry 97 97 96 Oxygen Delivery 05/26/25 21:54 Temperature 98.5 F Pulse Rate 66 Respiratory Rate 18 Blood Pressure 163/98 H Pulse Oximetry 100 Oxygen Delivery Exam Const: General: cooperative, healthy appearing, comfortable, no acute distress, well developed, awake, Physically active, average body habitus and well nourished Nutritional Appearance: average body habitus and well nourished Orientation/consciousness: oriented to person, oriented to place, oriented to time and patient oriented x3 Limitations: no limitations HENMT: Head: normal to inspection and No palpable skull fracture present Eyes: General: appearance normal, both eyes and all related structures Alignment and Position: alignment normal Periorbital: periorbital findings normal Eyelids: eyelids normal EOM: EOMs intact bilaterally Neck: Neck: normal visual inspection and full ROM Chest: Chest palpation & inspection: normal inspection of the chest Resp: Effort & Inspection: normal respiratory effort Auscultation: clear to auscultation bilaterally Percussion: percussion normal Cardio: Palpation: normal PMI Rate: regular rate Rhythm: regular rhythm GI: Inspection: normal to inspection Percussion: Yes normal to percussion Auscultation: normal bowel sounds Rectal Exam: deferred : General: Yes no CVA tenderness Back/Spine/Pelvis: Back: no CVA tenderness Skin: General skin exam: normal color Lesions: no lesions Rashes: no rashes Trauma: no lacerations or abrasions Wounds: no wounds Hair: normal Nails: normal Neuro: General: oriented to person, oriented to place, oriented to time and patient oriented x3 Cognition (Neuro): normal cognition Speech: normal speech Extrem: General: normal to inspection Right upper extremity: normal to inspection and shoulder/upper arm Left upper extremity: normal to inspection and shoulder/upper arm Other: 2+ pitting edema to lower extremity. Psych: Appearance: grossly normal Mental Status: mental status grossly normal Speech and movement: Normal speech and movement present Affect: normal affect Attitude: cooperative Thought process: Normal thought process present Thought content: Yes Normal thought content present Insight: Good insight present (Psych) Judgement: Good judgement present (Psych) Results Labs Labs: Short CBC 05/26/25 Range/Units 16:06 WBC 7.6 (4.5-10.0) K/mm3 Hgb 6.2 L* (14.0-18.0) g/dL Hct 22.5 L (42.0-52.0) % Plt Count 133 L (150-375) k/mm3 BMP 05/26/25 16:06 Sodium 138 Potassium 4.2 Chloride 107 Carbon Dioxide 22 BUN 24 H Creatinine 1.88 H Glucose 105 Calcium 9.1 Liver Function 05/26/25 Range/Units 16:06 Total Bilirubin 0.6 (0.2-1.3) mg/dL AST 18 (17-59) U/L ALT 15 (6-50) U/L Alkaline Phosphatase 88 (38-126) U/L Albumin 4.1 (3.5-5.1) g/dL Attestation: I personally reviewed all lab results ECG Interpretation: Intervals Gans Rate: 63 P: 31 ME: 201 QRS: 18 QRSD: 106 T: 29 QT: 441 QTc: 453 Interpretive Statements SINUS RHYTHM BASELINE ARTIFACT- I, III, AVL, AVF, V2-V5 NORMAL ECG No previous ECG available for comparison Electronically Signed On 05-26-2025 20:58:12 TRUCK DESPATCHER by Adrien Romero D.O. Quality VTE Prophylaxis VTE prophylaxis: mechanical ordered Assessment and Plan Assessment and plan (1) Anemia: Code(s): D64.9 - Anemia, unspecified Status: Acute Assessment and Plan: -Hematology-Oncology consult would be greatly be appreciated. -the patient has been given 2 units pack red blood cells. -check H&H every 6 hours. -check stool for occult blood. The patient had a colonoscopy back in March 27, 2025 when had benign polyps removed. -he denies any blood in his stool and denies vomiting any blood. -he has only been on an aspirin which is currently on hold. -the patient has had iron infusions in the past. Which he may need 1 this admission. -his been placed on p.o. iron. -his RBC is 2.93, hemoglobin 6.2, hematocrit 22.5, MCV 76.8, MCH 21.2, MCHC 27.6, RDW 15.9, platelet count 133, neutrophil percentage 75.1, live % H 11.3, mono percentage 9.2. His iron is 22, percentage saturation 6, ferritin 4.83. (2) Acute renal failure: Code(s): N17.9 - Acute kidney failure, unspecified Status: Acute Assessment and Plan: -have no prior labs for comparison. BUN is 24 and creatinine 1.88. GFR 35. -may consider renal ultrasound if labs continue to worsen. -may consider consultation with fan balancer if renal function gets worse. -unsure if this is chronic as I have no labs for prior comparison. -daily BMP. (3) DM2 (diabetes mellitus, type 2): Code(s): E11.9 - Type 2 diabetes mellitus without complications Status: Acute Assessment and Plan: -hold metformin, -Accu-Cheks AC and HS with sliding scale insulin and hypoglycemic protocol. -heart healthy diabetic diet. -check A1c. (4) HTN (hypertension): Code(s): I10 - Essential (primary) hypertension Status: Acute Assessment and Plan: -continue with chlorthalidone, Coreg, and olmesartan -may consider holding chlorthalidone and olmesartan if renal function worsens. -blood pressure currently 133/85. (5) CAD (coronary artery disease): Code(s): I25.10 - Atherosclerotic heart disease of [place] coronary artery without angina pectoris Status: Acute Assessment and Plan: -aspirin is currently on hold. -he has a history of a cardiac stent for many years ago. (6) Hyperlipidemia: Code(s): E78.5 - Hyperlipidemia, unspecified Status: Acute Assessment and Plan: -continue with rosuvastatin (7) Chronic GERD: Code(s): K21.9 - Gastro-esophageal reflux disease without esophagitis Status: Acute Assessment and Plan: -IV Protonix has been started (8) COPD (chronic obstructive pulmonary disease): Code(s): J44.9 - Chronic obstructive pulmonary disease, unspecified Status: Acute Assessment and Plan: -continue with Singulair and home inhalers.
[2025-05-26 23:41] LABS: Free T4 Free Thyroxine Reflex 1.11 ng/dL (0.78-2.19)
[2025-05-27 00:46] LABS: Total Triiodothyronine (T3) 1.36 NG/ML (0.82-1.58)
[2025-05-27 01:38] VITALS: O2SAT 98
[2025-05-27 04:15] VITALS: BP 137/56; PULSE 67; RESP 17; TEMP 36; O2SAT 98
[2025-05-27 07:00] LABS: Hematocrit 27.2 % (42.0-52.0); Hemoglobin 8.0 g/dL (14.0-18.0)
[2025-05-27 07:14] LABS: Anion Gap 9 mmol/L (4-12); Blood Urea Nitrogen 23 mg/dL (9-20); Calcium 9.0 mg/dL (8.4-10.2); Carbon Dioxide 24 mmol/L (22-30); Chloride 106 mmol/L (98-107); Estimated CRCL calculation 41 ml/min; Estimated Glomerular Filt Rate 41; Glucose 97 mg/dL (65-110); Potassium 4.1 mmol/L (3.4-5.0); Sodium 139 mmol/L (137-145)
--- NOTE | 2025-05-27 07:33 | P.PNIM_ITS ---
Assessment and Plan Assessment and Plan (1) Anemia: Code(s): D64.9 - Anemia, unspecified Status: Acute Assessment and Plan: * Heme/Onc consult * Given 2 units PRBC * H&H q6 hours * check stool for occult blood. The patient had a colonoscopy back in March 27, 2025 when had benign polyps removed. * Denies any blood in stool and denies hematemesis * has been on aspirin - on hold. * History of iron infusions in the past * Placed on p.o. iron. * his RBC is 2.93, hemoglobin 6.2, hematocrit 22.5, MCV 76.8, MCH 21.2, MCHC 27.6, RDW 15.9, platelet count 133, neutrophil percentage 75.1, live % H 11.3, mono percentage 9.2. His iron is 22, percentage saturation 6, ferritin 4.83. (2) Acute renal failure: Code(s): N17.9 - Acute kidney failure, unspecified Status: Acute Assessment and Plan: * have no prior labs for comparison. * BUN is 24 and creatinine 1.88. GFR 35 * may consider renal ultrasound if labs continue to worsen * may consider consultation with deep submergence vehicle crewmember if renal function gets worse * unsure if this is chronic as I have no labs for prior comparison * daily BMP * 05/27: Cr 1.88 -> 1.63 (3) DM2 (diabetes mellitus, type 2): Code(s): E11.9 - Type 2 diabetes mellitus without complications Status: Acute Assessment and Plan: * hold metformin * Accu-Cheks AC and HS with sliding scale insulin and hypoglycemic protocol * heart healthy diabetic diet * A1c (4) HTN (hypertension): Code(s): I10 - Essential (primary) hypertension Status: Acute Assessment and Plan: * continue with chlorthalidone, Coreg, and olmesartan * may consider holding chlorthalidone and olmesartan if renal function worsens * blood pressure currently 133/85 (5) CAD (coronary artery disease): Code(s): I25.10 - Atherosclerotic heart disease of [place] coronary artery without angina pectoris Status: Acute Assessment and Plan: * aspirin is currently on hold * he has a history of a cardiac stent for many years ago (6) Hyperlipidemia: Code(s): E78.5 - Hyperlipidemia, unspecified Status: Acute Assessment and Plan: * continue with rosuvastatin (7) Chronic GERD: Code(s): K21.9 - Gastro-esophageal reflux disease without esophagitis Status: Acute Assessment and Plan: * IV Protonix has been started (8) COPD (chronic obstructive pulmonary disease): Code(s): J44.9 - Chronic obstructive pulmonary disease, unspecified Status: Acute Assessment and Plan: * continue with Singulair and home inhalers. Subjective Date/time seen: 05/27/25 07:33 Interval history: 75-year-old male patient who has a history of COPD , hypertension, and iron deficiency anemia. The patient has had iron infusions in the past. The patient had routine outpatient labs and found that his hemoglobin was 6. 05/27/2025 Review of Systems Constitutional: Constitutional: Reports as per HPI and Reports no additional constitutional complaints Eyes: Eyes: Reports as per HPI and Reports no additional eye complaints ENT: Reports system reviewed and no additional complaints, except as documented and Reports Normal hearing present Cardiovascular: Cardiovascular: Reports no additional cardiovascular complaints Respiratory: Respiratory: Reports as per HPI and Reports no additional respiratory complaints Gastrointestinal: Gastrointestinal: Reports as per HPI and Reports no additional gastrointestinal complaints Musculoskeletal: Musculoskeletal: Reports no additional musculoskeletal complaints Integumentary/Breasts: Skin/Breast: Reports system reviewed and no additional complaints, except as docu Neurologic: Reports system reviewed and no additional complaints, except as documented and Reports Normal hearing present Psychiatric: Psychiatric: Reports no additional psychiatric complaints and Reports as per HPI Hematologic/Lymphatic: Hematologic/Lymphatic: Reports no additional hematologic/lymphatic complaints Allergic/Immunologic: Allergic/Immunologic: Reports no additional allergic/immunologic complaints Exam Const: General: cooperative, healthy appearing, comfortable, no acute distress, well developed, awake, Physically active, average body habitus and well nourished Nutritional Appearance: average body habitus and well nourished Orientation/consciousness: oriented to person, oriented to place, oriented to time and patient oriented x3 Limitations: no limitations HENMT: Head: normal to inspection and No palpable skull fracture present Eyes: General: appearance normal, both eyes and all related structures Alignment and Position: alignment normal Periorbital: periorbital findings normal Eyelids: eyelids normal EOM: EOMs intact bilaterally Neck: Neck: normal visual inspection and full ROM Chest: Chest palpation & inspection: normal inspection of the chest Resp: Effort & Inspection: normal respiratory effort Auscultation: clear to auscultation bilaterally Percussion: percussion normal Cardio: Palpation: normal PMI Rate: regular rate Rhythm: regular rhythm GI: Inspection: normal to inspection Auscultation: normal bowel sounds Rectal Exam: deferred : General: Yes no CVA tenderness Back/Spine/Pelvis: Back: no CVA tenderness Skin: General skin exam: normal color Lesions: no lesions Rashes: no rashes Trauma: no lacerations or abrasions Wounds: no wounds Hair: normal Nails: normal Neuro: General: oriented to person, oriented to place, oriented to time and patient oriented x3 Cranial nerves: Yes Normal hearing present Cognition (Neuro): normal cognition Speech: normal speech Extrem: General: normal to inspection Right upper extremity: normal to inspection and shoulder/upper arm Left upper extremity: normal to inspection and shoulder/upper arm Right lower extremity: normal to inspection Left lower extremity: normal to inspection Other: 2+ pitting edema to lower extremity. Psych: Appearance: grossly normal Mental Status: mental status grossly normal Speech and movement: Normal speech and movement present Affect: normal affect Attitude: cooperative Thought process: Normal thought process present Insight: Good insight present (Psych) Judgement: Good judgement present (Psych) Objective Data Vital Signs Vital Signs: Vital Signs - 24 hr 05/26/25 14:15 05/26/25 16:04 05/26/25 16:10 Temperature 97.6 F Pulse Rate 85 65 Respiratory Rate 18 16 Blood Pressure 149/64 H 139/75 Pulse Oximetry 92 95 96 Oxygen Delivery Room Air Oxygen Flow Rate 05/26/25 17:17 05/26/25 18:44 05/26/25 18:55 Temperature 98.6 F Pulse Rate 67 60 64 Respiratory Rate 17 18 16 Blood Pressure 135/88 140/69 148/90 H Pulse Oximetry 97 97 96 Oxygen Delivery Oxygen Flow Rate 05/26/25 19:01 05/26/25 20:01 05/26/25 21:15 Temperature 97.9 F 99.2 F 99.0 F Pulse Rate 56 L 70 87 Respiratory Rate 16 20 25 H Blood Pressure 141/65 H 149/84 H 150/82 H Pulse Oximetry 97 100 100 Oxygen Delivery Oxygen Flow Rate 05/26/25 21:26 05/26/25 21:34 05/26/25 21:51 Temperature 98.6 F 98.6 F 98.5 F Pulse Rate 67 70 67 Respiratory Rate 18 20 21 H Blood Pressure 170/88 H 168/85 H 163/98 H Pulse Oximetry 97 97 96 Oxygen Delivery Oxygen Flow Rate 05/26/25 21:54 05/26/25 22:26 05/26/25 23:57 Temperature 98.5 F 98.4 F 98.0 F Pulse Rate 66 71 73 Respiratory Rate 18 16 20 Blood Pressure 163/98 H 133/85 138/67 Pulse Oximetry 100 96 100 Oxygen Delivery Oxygen Flow Rate 05/27/25 01:38 05/27/25 04:15 Temperature 96.8 F L Pulse Rate 67 Respiratory Rate 17 Blood Pressure 137/56 L Pulse Oximetry 98 98 Oxygen Delivery Nasal Cannula Oxygen Flow Rate 3.5 Intake/Output Intake/Output: Intake & Output 05/24/25 05/25/25 05/26/25 05/27/25 23:59 23:59 23:59 23:59 Intake Total 700 Output Total 400 Balance 700 -400 Meds/Results Medications: Active Medications Generic Name Dose Route Start Last Admin Trade Name Freq PRN Reason Stop Dose Admin Acetaminophen 650 mg 05/26/25 18:50 Acetaminophen 325 Mg Tablet PO Q4H PRN Mild Pain (1-3) or Fever Hydrocodone Bitart/Acetaminophen 1 tab 05/26/25 18:50 Hydrocodone/Acetaminophen (*Crx) 5-325 Mg Tablet PO Q4H PRN Pain Rated 4-6 Albuterol 2.5 mg 05/26/25 23:42 Albuterol Sulfate Neb 2.5 Mg/3 Ml Inh INHALATION Q4HRT PRN Shortness Of Breath Carvedilol 12.5 mg 05/26/25 23:45 05/27/25 01:43 Carvedilol 12.5 Mg Tablet PO Not Given Q12HR ORAL Chlorthalidone 25 mg 05/27/25 09:00 Chlorthalidone 25 Mg Tablet PO DAILY ORAL Dextrose 12.5 gm 05/26/25 23:49 Dextrose 50% 25 Gm/50 Ml Syringe IV PUSH PRN PRN Hypoglycemia Protocol Fluticasone Propionate 1 spray 05/27/25 09:00 Fluticasone Propionate 0.05% Na Spr 16 Gm Btl (*Bkc) NASAL Q12HR ORAL Glucagon 1 mg 05/26/25 23:49 Glucagon For Inj 1 Mg Vial IM PRN PRN Hypoglycemia Protocol Glucose 15 gm 05/26/25 23:49 Glucose Oral Gel 15 Gm Of Glucse In 37.5 Gm Tube PO PRN PRN Hypoglycemia Protocol Dextrose 1,000 mls @ 100 mls/hr 05/26/25 23:49 Dextrose 5% 1,000 Ml IVPB PRN PRN Hypoglycemia Protocol Insulin Aspart 2 - 5 units 05/27/25 08:00 Insulin Aspart (*Bkc) 100 Units/Ml SUB-Q TIDWM [facility] Protocol Ipratropium [place] 2 spray 05/27/25 09:00 Ipratropium Nasal [place] 0.06% 15 Ml Bottle NASAL Q12HR [facility] Loratadine 10 mg 05/27/25 09:00 Loratadine 10 Mg Tablet PO DAILY [facility] Montelukast Sodium 10 mg 05/26/25 23:45 05/27/25 01:44 Montelukast Sodium 10 Mg Tablet PO Not Given HS [facility] Olmesartan 40 mg 05/27/25 09:00 Olmesartan Medoxomil 20 Mg Tablet PO QAM [facility] Ondansetron HCl 4 mg 05/26/25 18:50 Ondansetron Inj 4 Mg/2 Ml Vial IV PUSH Q4H PRN Nausea Pantoprazole Sodium 40 mg 05/27/25 09:00 Pantoprazole Sodium Iv 40 Mg Vial IV PUSH Q12HR [facility] Polysaccharide Iron Complex 150 mg 05/27/25 08:00 Polysaccharide Iron Complex 150 Mg Capsule PO BIDWM [facility] Rosuvastatin Calcium 20 mg 05/27/25 09:00 Rosuvastatin 20 Mg Tablet PO DAILY [facility] Fluticasone/Salmeterol 2 puff 05/27/25 08:00 Fluticasone/Salmeterol 45-21 Mcg Inhaler 1 Puff INHALATION Q12HRT [facility] Vitamin D 50 mcg 05/27/25 09:00 Cholecalciferol (Vitamin D3) 25 Mcg (1,000 Units) Tablet PO DAILY [facility] Labs Labs: Laboratory Results - last 24 hr 05/26/25 05/27/25 16:06 06:32 WBC 7.6 RBC 2.93 L Hgb 6.2 L* 8.0 L Hct 22.5 L 27.2 L MCV 76.8 L MCH 21.2 L MCHC 27.6 L RDW 15.9 H Plt Count 133 L MPV 9.6 Immature Gran % (Auto) 0.5 Neut % (Auto) 75.1 H Lymph % (Auto) 11.3 L [place] % (Auto) 9.2 H Eos % (Auto) 3.5 Baso % (Auto) 0.4 Lymph # (Auto) 0.86 L [place] # (Auto) 0.7 H Eos # (Auto) 0.3 Baso # (Auto) 0.0 Abs Immat Gran (auto) 0.04 H Absolute Neuts (auto) 5.7 Absolute Nucleated RBC 0.000 Band Neutrophils % Not Reportable Nucleated RBC % 0.0 Platelet Estimate Slightly decreased Polychromasia Occasional Hypochromasia 1+ Basophilic Stippling 1+ Anisocytosis 1+ Microcytosis 1+ Ovalocytes 1+ Schistocytes None seen PT 14.7 INR 1.1 APTT 26.0 Sodium 138 139 Potassium 4.2 4.1 Chloride 107 106 Carbon Dioxide 22 24 Anion Gap 9 9 BUN 24 H 23 H Creatinine 1.88 H 1.63 H Estim Creat Clear Calc 36 41 Estimated GFR 35 L 41 L Glucose 105 97 Calcium 9.1 9.0 Iron 22 L TIBC 393 % Saturation 6 L Ferritin 4.83 L Total Bilirubin 0.6 AST 18 ALT 15 Alkaline Phosphatase 88 Total Protein 7.0 Albumin 4.1 Vitamin B12 901.0 Folate 11.3 TSH (Reflex) 6.410 H Free T4 1.11 Total T3 1.36 Blood Type B Positive Antibody Screen Negative Crossmatch See Detail Quality VTE Prophylaxis VTE prophylaxis: mechanical ordered
[2025-05-27 08:14] LABS: Hemoglobin A1C 4.9 % (<5.7)
[2025-05-27 08:47] LABS: Immature Granulocyte Percent A 0.6 % (0-0.5); Lymphocytes Absolute Auto 1.14 K/mm3 (0.9-3.2); Mean Corpuscular HGB Conc 29.6 g/dl (32-36); Mean Corpuscular Hemoglobin 23.4 pg (26-34); Mean Corpuscular Volume 78.9 fl (80-100); Nucleated Red Blood Cells Absolute Auto 0.000 K/mm3 (0.0-0.012); Nucleated Red Blood Cells Perc 0.0 % (0.0-0.2); Platelet Count Result 143 k/mm3 (150-375); Red Blood Count 3.42 M/mm3 (4.6-6.20); White Blood Count 8.0 K/mm3 (4.5-10.0)
[2025-05-27 09:00] VITALS: PULSE 69
[2025-05-27] MEDS: CHLORTHALIDONE 25 MG TABLET PO (09:00)
[2025-05-27] MEDS: LORATADINE 10 MG TABLET PO (09:00)
[2025-05-27] MEDS: CHOLECALCIFEROL (VITAMIN D3) 25 MCG (1,000 UNITS) TABLET 50 MCG PO (09:00)
[2025-05-27] MEDS: OLMESARTAN MEDOXOMIL 20 MG TABLET 40 MG PO (09:01)
[2025-05-27] MEDS: ROSUVASTATIN 20 MG TABLET PO (09:01)
[2025-05-27] MEDS: PANTOPRAZOLE SODIUM IV 40 MG VIAL IV PUSH (09:02)
[2025-05-27] MEDS: FLUTICASONE PROPIONATE 0.05% NA SPR 16 GM BTL (*BKC) 1 SPRAY NASAL (09:07)
[2025-05-27 09:40] LABS: Anisocytosis 1+; Hypochromasia 1+; Microcytosis 1+ (NORMAL); Ovalocytes 1+; Poikilocytosis 1+
[2025-05-27 12:21] LABS: Hematocrit 26.9 % (42.0-52.0); Hemoglobin 8.1 g/dL (14.0-18.0)
--- NOTE | 2025-05-27 13:24 | WPDONCCN ---
Assessment and Plan Assessment and plan (1) Acute renal failure: Code(s): N17.9 - Acute kidney failure, unspecified Status: Acute (2) Iron deficiency anemia: Code(s): D50.9 - Iron deficiency anemia, unspecified Status: Acute Plan Ankush Phelan is a 75 year old male who has a history of COPD , hypertension, and iron deficiency anemia and received iron infusions in 2023. The patient had routine outpatient labs and found that his hemoglobin was 6 + associated dizziness. The patient denied feeling short of breath. He had known history of syncope. BUN is 24 and creatinine is 1.88. GFR is 35. No previous labs for comparison. Iron panel was suggestive of: Iron was 22. Saturation 6 and ferritin 4.83. TSH 6.41. The patient denies any hematemesis or hematochezia. He had a positive cologuard test and follow up colonoscopy on 03/27/2025 showed internal hemorrhoids, diverticula with no active bleeding and removal of benign polyps. The patient was typed and cross-matched in the emergency room and received his 1st unit in the ER and the 2nd unit was given on the medical floor. The patient is only on an aspirin and is not on any anticoagulation. Hematology is consulted for iron deficiency anemia. He reported that he had 2-3 iron infusions in 2023 at the direction of his doctor. He denied weight loss. He reported having stool accidents when he eats spicy food. He endorsed blood in stools/when he wipes. Iron deficiency anemia: - Pt underwent colonoscopy on 03/27/2025 showed internal hemorrhoids, diverticula with no active bleeding and removal of benign polyps after he had a positive cologuard test. Diverticulosis could be a possible etiology for anemia. - I advised pt to consider repeating colonoscopy in short interval in the next 6-12 months inorder to ensure that a mass/malignancy is not the etiology - With existing evidence so far, no mass noted on colonoscopy. - Pt received 2 U pRBC prior to consult - Plan for IV venofer 200 mg today and start ferrous sulphate 325 mG Every other day. Advised pt to take stool softeners OTC. Pt prefers to go home and f/u with [facility] hematology/oncology clinic. I have provided contact details of 's office to pt and his . - D/w at bedside - Advised pt to schedule an appointment during /2nd week of May 2025 with and discuss receiving IV iron either venofer or ferraheme outpatient. Acute renal failure: improving - Plan per primary team HPI Data of Consult Date/Time: 05/27/25 13:24 Requesting Physician: New Fang MD Primary Care Provider: Ghanshyam Beck, Consult Narrative Reason for consult: Iron deficiency anemia Narrative: Ankush Phelan is a 75 year old male who has a history of COPD , hypertension, and iron deficiency anemia and received iron infusions in 2023. The patient had routine outpatient labs and found that his hemoglobin was 6 + associated dizziness. The patient denied feeling short of breath. He had known history of syncope. BUN is 24 and creatinine is 1.88. GFR is 35. No previous labs for comparison. Iron panel was suggestive of: Iron was 22. Saturation 6 and ferritin 4.83. TSH 6.41. The patient denies any hematemesis or hematochezia. He had a positive cologuard test and follow up colonoscopy on 03/27/2025 showed internal hemorrhoids, diverticula with no active bleeding and removal of benign polyps. The patient was typed and cross-matched in the emergency room and received his 1st unit in the ER and the 2nd unit was given on the medical floor. The patient is only on an aspirin and is not on any anticoagulation. Hematology is consulted for iron deficiency anemia. He reported that he had 2-3 iron infusions in 2023 at the direction of his doctor. He denied weight loss. He reported having stool accidents when he eats spicy food. He endorsed blood in stools/when he wipes. Review of Systems Review of Systems: Negative except as listed in HPI PMFSH Past Medical History Medical History Acute renal failure Iron deficiency anemia Chronic GERD DM2 (diabetes mellitus, type 2) Hyperlipidemia Positive colorectal cancer screening using Cologuard test HTN (hypertension) CAD (coronary artery disease) Obesity COPD (chronic obstructive pulmonary disease) Surgical History Surgical History Hx of total knee arthroplasty Right knee H/O cataract extraction Bilaterally H/O colonoscopy with polypectomy H/O eye surgery Left eye removal foreign body. History of coronary artery stent placement Social History Social History Social History: The patient lives at home with his . He has 3 children. 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 Code status: Full code Smoking packs per day: 2 Smoking cigarettes per day: 40.0 Years smoked: 50 Smoking pack-years: 100.00 Smoking status: Former smoker Tobacco type: cigarettes Second hand tobacco smoke exposure: No Alcohol intake: former Substance use: current Substance use type: marijuana and prescription drug Last use: 03/24/2025 Lack of Transportation: No Lack of Food: Never True Current Housing: I Have Housing Concerned About Future Housing: No Difficulty Paying Gas/Electric Bills: No Difficulty Paying for Meds: No Currently Unemployed: No Education: Trade/Vocational Certificate Difficulty w/ Childcare or Family Care: No Living arrangements: with family Spiritual care concerns: No Meds Home Medications and Allergies Home Medications ?Medication ?Instructions ?Recorded ?Confirmed ?Type albuterol sulfate 90 mcg/actuation 2 puff inhalation PRN shortness of 03/24/25 05/26/25 History aerosol inhaler breath or wheezing aspirin 81 mg capsule 81 mg PO DAILY 03/24/25 05/26/25 History carvedilol 12.5 mg tablet 12.5 mg PO BID 03/24/25 05/26/25 History chlorthalidone 25 mg tablet 25 mg PO DAILY 03/24/25 05/26/25 History cholecalciferol (vitamin D3) 50 50 mcg PO DAILY 03/24/25 05/26/25 History mcg (2,000 unit) tablet (Thera-D) ipratropium bromide 42 mcg (0.06 2 spray intranasal BID allergy 03/24/25 05/26/25 History %) nasal spray symptoms loratadine 10 mg tablet (Claritin) 10 mg PO DAILY 03/24/25 05/26/25 History mecobalamin (vitamin B12) 500 mcg 500 mcg PO DAILY 03/24/25 05/26/25 History chewable tablet metformin 500 mg tablet 500 mg PO BID 03/24/25 05/26/25 History montelukast 10 mg tablet 10 mg PO HS 03/24/25 05/26/25 History olmesartan 40 mg tablet 40 mg PO DAILY 03/24/25 05/26/25 History omeprazole 40 mg capsule,delayed 40 mg PO HS 03/24/25 05/26/25 History release rosuvastatin 20 mg tablet 20 mg PO DAILY 03/24/25 05/26/25 History fluticasone 100 mcg-salmeterol 50 1 inh inhalation BID 05/26/25 05/26/25 History mcg/dose blistr powdr for inhalation (Wixela Inhub) fluticasone propionate 50 1 spray intranasal BID 05/26/25 05/26/25 History mcg/actuation nasal spray,suspension sumatriptan succinate 100 mg tablet 100 mg PO PRN 05/26/25 05/26/25 History ferrous sulfate 325 mg (65 mg 325 mg PO EVERY OTHER DAY #30 tabs 05/27/25 Rx iron) tablet Allergies Allergy/AdvReac Type Severity Reaction Status Date / Time bupropion Allergy Severe Hallucinati Verified 05/26/25 22:48 ng ciprofloxacin Allergy Severe Ulcers Verified 05/26/25 22:48 ketamine Allergy Severe Hypertensio Verified 05/26/25 22:48 n zolpidem Allergy Severe Hives Verified 05/26/25 22:48 Vital Signs Vital Signs - 24 hr 05/26/25 14:15 05/26/25 16:04 05/26/25 16:10 Temperature 36.4 C Pulse Rate 85 65 Respiratory Rate 18 16 Blood Pressure 149/64 H 139/75 Pulse Oximetry 92 95 96 Oxygen Delivery Room Air Oxygen Flow Rate 05/26/25 17:17 05/26/25 18:44 05/26/25 18:55 Temperature 37.0 C Pulse Rate 67 60 64 Respiratory Rate 17 18 16 Blood Pressure 135/88 140/69 148/90 H Pulse Oximetry 97 97 96 Oxygen Delivery Oxygen Flow Rate 05/26/25 19:01 05/26/25 20:01 05/26/25 21:15 Temperature 36.6 C 37.3 C 37.2 C Pulse Rate 56 L 70 87 Respiratory Rate 16 20 25 H Blood Pressure 141/65 H 149/84 H 150/82 H Pulse Oximetry 97 100 100 Oxygen Delivery Oxygen Flow Rate 05/26/25 21:26 05/26/25 21:34 05/26/25 21:51 Temperature 37.0 C 37.0 C 36.9 C Pulse Rate 67 70 67 Respiratory Rate 18 20 21 H Blood Pressure 170/88 H 168/85 H 163/98 H Pulse Oximetry 97 97 96 Oxygen Delivery Oxygen Flow Rate 05/26/25 21:54 05/26/25 22:26 05/26/25 23:57 Temperature 36.9 C 36.9 C 36.7 C Pulse Rate 66 71 73 Respiratory Rate 18 16 20 Blood Pressure 163/98 H 133/85 138/67 Pulse Oximetry 100 96 100 Oxygen Delivery Oxygen Flow Rate 05/27/25 01:38 05/27/25 04:15 05/27/25 08:00 Temperature 36.0 C L Pulse Rate 67 Respiratory Rate 17 Blood Pressure 137/56 L Pulse Oximetry 98 98 Oxygen Delivery Nasal Cannula Room Air Oxygen Flow Rate 3.5 05/27/25 09:00 Temperature Pulse Rate 69 Respiratory Rate Blood Pressure Pulse Oximetry Oxygen Delivery Oxygen Flow Rate Exam Narrative: Pale conjunctiva, mild hearing loss, ECO, regular HR and rhythm, clear lung sounds. at bedside Results Labs 05/27/25 12:10 05/27/25 06:32 Labs: Short CBC 05/26/25 05/27/25 05/27/25 Range/Units 16:06 06:32 12:10 WBC 7.6 8.0 (4.5-10.0) K/mm3 Hgb 6.2 L* 8.0 L 8.1 L (14.0-18.0) g/dL Hct 22.5 L 27.2 L 26.9 L (42.0-52.0) % Plt Count 133 L 143 L (150-375) k/mm3 BMP 05/26/25 05/27/25 16:06 06:32 Sodium 138 139 Potassium 4.2 4.1 Chloride 107 106 Carbon Dioxide 22 24 BUN 24 H 23 H Creatinine 1.88 H 1.63 H Glucose 105 97 Calcium 9.1 9.0 Liver Function 05/26/25 Range/Units 16:06 Total Bilirubin 0.6 (0.2-1.3) mg/dL AST 18 (17-59) U/L ALT 15 (6-50) U/L Alkaline Phosphatase 88 (38-126) U/L Albumin 4.1 (3.5-5.1) g/dL
[2025-05-27 14:00] VITALS: BP 157/81; PULSE 71; RESP 14; TEMP 36.8; O2SAT 96
--- NOTE | 2025-05-27 14:15 | P.DS_ITS ---
DS: Admitting Diagnosis Discharge Date 05/27/2025 Admitting Diagnosis Anemia DS: Discharge Diagnosis Discharge Diagnosis (1) Anemia: Code(s): D64.9 - Anemia, unspecified Status: Acute Assessment and Plan: * Heme/Onc consult * Given 2 units PRBC * H&H q6 hours * check stool for occult blood. The patient had a colonoscopy back in March 27, 2025 when had benign polyps removed. * Denies any blood in stool and denies hematemesis * has been on aspirin - on hold. * History of iron infusions in the past * Placed on p.o. iron. * his RBC is 2.93, hemoglobin 6.2, hematocrit 22.5, MCV 76.8, MCH 21.2, MCHC 27.6, RDW 15.9, platelet count 133, neutrophil percentage 75.1, live % H 11.3, mono percentage 9.2. His iron is 22, percentage saturation 6, ferritin 4.83. (2) Acute renal failure: Code(s): N17.9 - Acute kidney failure, unspecified Status: Acute Assessment and Plan: * have no prior labs for comparison. * BUN is 24 and creatinine 1.88. GFR 35 * may consider renal ultrasound if labs continue to worsen * may consider consultation with rater associate if renal function gets worse * unsure if this is chronic as I have no labs for prior comparison * daily BMP * 05/27: Cr 1.88 -> 1.63 (3) DM2 (diabetes mellitus, type 2): Code(s): E11.9 - Type 2 diabetes mellitus without complications Status: Acute Assessment and Plan: * hold metformin * Accu-Cheks AC and HS with sliding scale insulin and hypoglycemic protocol * heart healthy diabetic diet * A1c (4) HTN (hypertension): Code(s): I10 - Essential (primary) hypertension Status: Acute Assessment and Plan: * continue with chlorthalidone, Coreg, and olmesartan * may consider holding chlorthalidone and olmesartan if renal function worsens * blood pressure currently 133/85 (5) CAD (coronary artery disease): Code(s): I25.10 - Atherosclerotic heart disease of [place] coronary artery without angina pectoris Status: Acute Assessment and Plan: * aspirin is currently on hold * he has a history of a cardiac stent for many years ago (6) Hyperlipidemia: Code(s): E78.5 - Hyperlipidemia, unspecified Status: Acute Assessment and Plan: * continue with rosuvastatin (7) Chronic GERD: Code(s): K21.9 - Gastro-esophageal reflux disease without esophagitis Status: Acute Assessment and Plan: * IV Protonix has been started (8) COPD (chronic obstructive pulmonary disease): Code(s): J44.9 - Chronic obstructive pulmonary disease, unspecified Status: Acute Assessment and Plan: * continue with Singulair and home inhalers. DS: Summary Hospital Course Reason for hospitalization: Anemia Hospital Course: The patient is a 75-year-old male with a history of iron deficiency anemia, COPD, CAD with prior stent placement, hypertension, type 2 diabetes, hyperlip idemia, and chronic GERD who presented on 05/26/25 after routine outpatient labs revealed a hemoglobin of 6.2 g/dL. He reported exertional fatigue and intermittent dizziness but denied chest pain, dyspnea, syncope, hematemesis, or melena. Initial evaluation demonstrated severe microcytic, hypochromic anemia with iron studies consistent with iron deficiency (iron 22, ferritin 4.83, saturation 6%), mild thrombocytopenia, and acute kidney injury with creatinine 1.88 (GFR 35). He was admitted to observation, typed and cross-matched, and transfused a total of 2 units of packed red blood cells with improvement in hemoglobin to ?8.0?8.1 g/dL. Aspirin was held, and IV fluids were administered. Given his prior positive Cologuard and colonoscopy on 03/27/25 showing benign polyps, diverticulosis, and internal hemorrhoids without active bleeding, no acute GI bleeding was identified during admission. Hematology was consulted and recommended IV iron therapy; the patient received IV Venofer and was started on oral ferrous sulfate every other day with stool softener advice. Acute kidney injury improved with creatinine decreasing to 1.63. Metformin was held during admission, blood glucose was managed with monitoring, and other chronic medications were continued as appropriate. The patient remained hemodynamically stable without transfusion reactions or new symptoms and preferred outpatient follow-up. He was advised to follow closely with hematology/oncology in early May 2025 for continued IV iron therapy and further evaluation of iron deficiency anemia, with consideration of repeat colonoscopy in the future. Status at Discharge Functional status at discharge: independent ambulation Overall status at discharge: patient is back to baseline Time Spent with Patient Time attestation: Total time spent providing and/or coordinating discharge services: 31 Exam Narrative: GENERAL: Well-appearing, well-nourished, and in no acute distress. HEAD: Normocephalic, atraumatic. ENT: Mucous membranes moist. Fell conjunctiva NECK: Supple. CHEST: Clear to auscultation. No respiratory distress. HEART: Regular rate and rhythm. Normal peripheral pulses. ABDOMEN: Soft, nontender, nondistended. EXTREMITIES: Normal range of motion. No edema. SKIN: Warm, dry, pale, no rash. NEURO: Alert and oriented x3. PSYCH: Normal mood and affect. DS: Data Data Completed and Pending Labs on day of discharge: Labs from last 24 hours 05/27/25 05/27/25 05/27/25 12:10 11:48 08:09 WBC RBC Hgb 8.1 L Hct 26.9 L MCV MCH MCHC RDW Plt Count MPV Immature Gran % (Auto) Neut % (Auto) Lymph % (Auto) [place] % (Auto) Eos % (Auto) Baso % (Auto) Lymph # (Auto) [place] # (Auto) Eos # (Auto) Baso # (Auto) Abs Immat Gran (auto) Absolute Neuts (auto) Absolute Nucleated RBC Band Neutrophils % Nucleated RBC % Platelet Estimate Polychromasia Hypochromasia Poikilocytosis Basophilic Stippling Anisocytosis Microcytosis Ovalocytes Schistocytes PT INR APTT Sodium Potassium Chloride Carbon Dioxide Anion Gap BUN Creatinine Estim Creat Clear Calc Estimated GFR Glucose POC Capillary Glucose 110 H 114 H Hemoglobin A1c Calcium Iron TIBC % Saturation Ferritin Total Bilirubin AST ALT Alkaline Phosphatase Total Protein Albumin Vitamin B12 Folate TSH (Reflex) Free T4 Total T3 Blood Type Antibody Screen Crossmatch 05/27/25 05/26/25 06:32 16:06 WBC 8.0 7.6 RBC 3.42 L 2.93 L Hgb 8.0 L 6.2 L* Hct 27.2 L 22.5 L MCV 78.9 L 76.8 L MCH 23.4 L D 21.2 L MCHC 29.6 L 27.6 L RDW 16.1 H 15.9 H Plt Count 143 L 133 L MPV 9.5 9.6 Immature Gran % (Auto) 0.6 H 0.5 Neut % (Auto) 70.7 75.1 H Lymph % (Auto) 14.3 L 11.3 L [place] % (Auto) 10.8 H 9.2 H Eos % (Auto) 3.1 3.5 Baso % (Auto) 0.5 0.4 Lymph # (Auto) 1.14 0.86 L [place] # (Auto) 0.9 H 0.7 H Eos # (Auto) 0.3 0.3 Baso # (Auto) 0.0 0.0 Abs Immat Gran (auto) 0.05 H 0.04 H Absolute Neuts (auto) 5.7 5.7 Absolute Nucleated RBC 0.000 0.000 Band Neutrophils % Not Reportable Not Reportable Nucleated RBC % 0.0 0.0 Platelet Estimate Slightly decreased Slightly decreased Polychromasia Occasional Hypochromasia 1+ 1+ Poikilocytosis 1+ Basophilic Stippling 1+ Anisocytosis 1+ 1+ Microcytosis 1+ 1+ Ovalocytes 1+ 1+ Schistocytes Not Reportable None seen PT 14.7 INR 1.1 APTT 26.0 Sodium 139 138 Potassium 4.1 4.2 Chloride 106 107 Carbon Dioxide 24 22 Anion Gap 9 9 BUN 23 H 24 H Creatinine 1.63 H 1.88 H Estim Creat Clear Calc 41 36 Estimated GFR 41 L 35 L Glucose 97 105 POC Capillary Glucose Hemoglobin A1c 4.9 Calcium 9.0 9.1 Iron 22 L TIBC 393 % Saturation 6 L Ferritin 4.83 L Total Bilirubin 0.6 AST 18 ALT 15 Alkaline Phosphatase 88 Total Protein 7.0 Albumin 4.1 Vitamin B12 901.0 Folate 11.3 TSH (Reflex) 6.410 H Free T4 1.11 Total T3 1.36 Blood Type B Positive Antibody Screen Negative Crossmatch See Detail Discharge Plan Discharge Attending physician on discharge: New Fang Consulting providers: Jaylan Wolf; Alonzo Taylor Discharging Clinician: Jaylan Wolf Anticipated Discharge Date/Time: 05/27/25 14:11 Patient Disposition: Home Activity: as tolerated Diet: regular Discharge Instructions: Discharge disposition: Home Take medications as prescribed. You will be discharged home on Ferrous Sulfate to be taken every other day. Monitor blood pressures Take caution while standing, rising, or moving Change positions slowly taking a break between each position change If you standing feel dizzy sit back down and take a break Encouraged to continue with yearly vaccinations Return to the emergency department if you develop sudden shortness of breath, chest pain, nausea, vomiting, upset stomach or intractable diarrhea Return to the emergency department if you develop fever greater than 101.5 Follow-up with the primary care physician within 1-2 weeks Follow-up with Dr. Humphreys of Hematology/Oncology in 1 week - you will be given orders to obtain blood work next week. Follow up with your primary care physician regarding these results. Thank you for choosing [facility] for your healthcare needs Patient Instructions: Antibiotic Form Patient Language: Cymraes Stand Alone Forms: General Discharge Information Follow-up/Referrals: Fabian,William Daily MD [Primary Care Provider] Discharge Medications: New ferrous sulfate 325 mg (65 mg iron) tablet 325 mg PO EVERY OTHER DAY Qty: 30 0RF Continued albuterol sulfate 90 mcg/actuation HFA aerosol inhaler 2 puff INHALATION PRN carvedilol 12.5 mg tablet 12.5 mg PO BID chlorthalidone 25 mg tablet 25 mg PO DAILY montelukast 10 mg tablet 10 mg PO HS loratadine [Claritin] 10 mg tablet 10 mg PO DAILY rosuvastatin 20 mg tablet 20 mg PO DAILY omeprazole 40 mg capsule,delayed release(DR/EC) 40 mg PO HS metformin 500 mg tablet 500 mg PO BID olmesartan 40 mg tablet 40 mg PO DAILY aspirin 81 mg capsule 81 mg PO DAILY ipratropium bromide 42 mcg (0.06 %) spray,non-aerosol 2 spray INTRANASAL BID mecobalamin (vitamin B12) 500 mcg tablet,chewable 500 mcg PO DAILY cholecalciferol (vitamin D3) [Thera-D] 50 mcg (2,000 unit) tablet 50 mcg PO DAILY fluticasone propion-salmeterol [Wixela Inhub] 100-50 mcg/dose blister with device 1 inh INHALATION BID fluticasone propionate 50 mcg/actuation spray,suspension 1 spray INTRANASAL BID sumatriptan succinate 100 mg tablet 100 mg PO PRN Date of admission: 05/26/25 18:51 Primary Care Provider: KiranWilliam Admitting Provider: New Fang Attending physician on admission: New Fang Condition: Stable Quality VTE Prophylaxis VTE prophylaxis: mechanical ordered
[2025-05-27] MEDS: IRON SUCROSE COMPLEX 400 MG, IRON SUCROSE COMPLEX 100 MG in SODIUM CHLORIDE 0.9% IV 250 ML 78.57 MG IVPB (14:29)
[2025-05-27] MEDS: HYDROcodone/acetaminophen (*CRX) 5-325 MG TABLET 1 TAB PO (14:45)
== END 2025-05-27 18:05 | disposition home or self-care (01) ==
LOC: ANHED 15:39 → ANH3MEDSUR 19:34
PROVIDERS: Nurse Practitioner; Admitting Provider Internal Medicine; Emergency Provider Emergency Medicine; PCP Internal Medicine; Visit Provider Internal Medicine
DX: D50.9 Iron deficiency anemia, unspecified (principal); N17.9 Acute kidney failure, unspecified; I10 Essential (primary) hypertension; I25.10 Atherosclerotic heart disease of native coronary artery without angina pectoris; J44.9 Chronic obstructive pulmonary disease, unspecified; Z87.891 Personal history of nicotine dependence; E11.9 Type 2 diabetes mellitus without complications; E78.5 Hyperlipidemia, unspecified; Z96.651 Presence of right artificial knee joint; K21.9 Gastro-esophageal reflux disease without esophagitis; Z79.84 Long term (current) use of oral hypoglycemic drugs; Z79.82 Long term (current) use of aspirin
CPT/HCPCS: 36415; 36430; 80048; 80053; 82607; 82728; 82746; 82948; 83036; 83540; 83550; 84439; 84443; 84480; 85014; 85018; 85025; 85610; 85730; 86850; 86900; 86901; 86923; 93005; 96374; 96375; 99285; A9270; G0378; J1756; J2470; J7050; P9016